=== PATIENT | male | born 1935 | race Caucasian/White ===

== ENCOUNTER 2024-01-17 05:49 | Outpatient (REF) | payer MEDICARE, SELFPAY ==
[2024-01-17 05:52] LABS: MANUAL DIFF FLAG NO
[2024-01-17 05:56] LABS: Basophils Percent Auto 0.6 % (0-2); Eosinophils Absolute Auto 0.1 X10*3/uL (0.0-0.4); Eosinophils Percent Auto 1.4 % (0-4); Hematocrit 31.9 % (42.0-52.0); Hemoglobin 10.2 g/dl (14.0-18.0); Imm Gran Abs Auto 0.01 X10*3/uL (0.00-0.03); Imm Gran Pct Auto 0.2 % (0.0-0.4); Lymphocytes Absolute Auto 2.1 X10*3/uL (1.2-4.9); Lymphocytes Percent Auto 32.4 % (20-40); Mean Corpuscular Hemoglobin 28.7 pg (27.0-33.0); Mean Corpuscular Volume 89.9 fL (80.0-98.0); Mean Platelet Volume 9.4 fL (9.4-12.4); Monocytes Absolute Auto 0.5 X10*3/uL (0.1-1.2); Monocytes Percent Auto 7.1 % (2-11); Neutrophils Absolute Auto 3.7 x10*3/uL (2.0-8.3); Neutrophils Percent Auto 58.3 % (45-73); Platelet Count 207 X10*3/uL (160-400); Red Blood Count 3.55 X10*6/uL (4.60-5.80); Red Cell Distribution Width 14.6 % (11.0-16.0); White Blood Count 6.3 X10*3/uL (4.8-10.8)
[2024-01-17 06:13] LABS: Alanine Aminotransferase 5 U/L (0-40); Albumin Level 3.2 g/dL (3.5-5.0); Alkaline Phosphatase 73 U/L (39-117); Anion Gap 12 (12-20); Aspartate Amino Transferase 8 U/L (5-37); Bilirubin Total 0.3 mg/dL (0.0-1.0); Blood Urea Nitrogen 12 mg/dL (9-16); Calcium 9.1 mg/dL (8.4-10.2); Carbon Dioxide 29 mmol/L (22-29); Chloride 106 mmol/L (96-108); Estimated Glomerular Filt Rate > 60; Glucose Random 100 mg/dL (60-115); Potassium 3.7 mmol/L (3.3-5.1); Sodium 143 mmol/L (135-145); Total Protein 5.6 g/dL (6.5-8.0)
== END 2024-01-17 05:50 | disposition home or self-care (01) ==
LOC: HO.MMNH1L 05:49
PROVIDERS: Visit Provider Hospitalist
DX: I50.30 Unspecified diastolic (congestive) heart failure (principal)
CPT/HCPCS: 36415; 80053; 85025

== ENCOUNTER 2024-05-25 05:56 | Outpatient (REF) | payer MEDICARE, SELFPAY ==
[2024-05-25 06:00] LABS: MANUAL DIFF FLAG NO
[2024-05-25 06:07] LABS: Basophils Percent Auto 0.3 % (0-2); Eosinophils Absolute Auto 0.1 X10*3/uL (0.0-0.4); Eosinophils Percent Auto 1.6 % (0-4); Hematocrit 31.4 % (42.0-52.0); Hemoglobin 10.2 g/dl (14.0-18.0); Imm Gran Abs Auto 0.02 X10*3/uL (0.00-0.03); Imm Gran Pct Auto 0.3 % (0.0-0.4); Lymphocytes Absolute Auto 1.9 X10*3/uL (1.2-4.9); Lymphocytes Percent Auto 30.5 % (20-40); Mean Corpuscular HGB Conc 32.5 g/dl (31.0-36.0); Mean Corpuscular Hemoglobin 26.5 pg (27.0-33.0); Mean Corpuscular Volume 81.6 fL (80.0-98.0); Mean Platelet Volume 9.4 fL (9.4-12.4); Monocytes Absolute Auto 0.7 X10*3/uL (0.1-1.2); Monocytes Percent Auto 11.7 % (2-11); Neutrophils Absolute Auto 3.5 x10*3/uL (2.0-8.3); Neutrophils Percent Auto 55.6 % (45-73); Platelet Count 290 X10*3/uL (160-400); Red Blood Count 3.85 X10*6/uL (4.60-5.80); Red Cell Distribution Width 15.8 % (11.0-16.0); White Blood Count 6.3 X10*3/uL (4.8-10.8)
[2024-05-25 06:30] LABS: B Type Natriuretic Peptide 53 pg/mL (<100)
[2024-05-25 06:33] LABS: Alanine Aminotransferase 12 U/L (0-40); Albumin Level 2.8 g/dL (3.5-5.0); Alkaline Phosphatase 70 U/L (39-117); Anion Gap 9 (12-20); Aspartate Amino Transferase 17 U/L (5-37); Bilirubin Total 0.3 mg/dL (0.0-1.0); Blood Urea Nitrogen 22 mg/dL (9-16); Calcium 8.4 mg/dL (8.4-10.2); Carbon Dioxide 24 mmol/L (22-29); Chloride 107 mmol/L (96-108); Estimated Glomerular Filt Rate > 60; Glucose Fasting 113 mg/dL (60-99); Iron 34 mcg/dL (45-160); Percent Iron Saturation 23 % (15-50); Sodium 136 mmol/L (135-145); Total Iron Binding Capacity 146 mcg/dL (228-428); Total Protein 5.1 g/dL (6.5-8.0); Unsaturated Iron Binding 112 ug/dL
[2024-05-25 06:48] LABS: Ferritin 216 ng/mL (20-250)
[2024-05-25 07:01] LABS: Estimated Average Glucose 126 mg/dL
[2024-05-25 07:04] LABS: Folate 11.6 ng/mL (> or = 4.0); Vitamin B12 1523 pg/mL (200-900)
[2024-05-25 11:48] LABS: OBS Int Ctl Valid YES; OBS1 POSITIVE (NEGATIVE)
[2024-05-28 19:39] LABS: TS Negative Control Passed; TS Panel A 0; TS Panel B 0; TS Positive Control Passed; TSpotTB Negative (Negative)
== END 2024-05-25 05:57 | disposition home or self-care (01) ==
LOC: HO.HSH2W 05:56
PROVIDERS: Visit Provider Internal Medicine
DX: D64.9 Anemia, unspecified (principal); I50.9 Heart failure, unspecified; N18.9 Chronic kidney disease, unspecified; Z13.1 Encounter for screening for diabetes mellitus
CPT/HCPCS: 36415; 80053; 81003; 82272; 82607; 82728; 82746; 83036; 83540; 83880; 84443; 85025; 86481

== ENCOUNTER 2024-05-25 13:25 | Outpatient (REF) | payer MEDICARE, SELFPAY ==
[2024-05-25 16:32] LABS: Appearance Urine Cloudy; Color Urine Yellow; Glucose Urine UA Negative (Negative); Leukocyte Esterase Urine Negative (Negative); Nitrite Urine Negative (Negative); PH 5.5 (5.0-9.0); Urine Blood Negative (Negative); Urine Ketones Negative (Negative); Urine Protein Negative (Neg-Trace)
--- OUTSIDE RECORDS SUMMARY | 2024-05-25 16:44 | XMS_ITS ---
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) ACTIVE 07/03/2023 RETENTION OF URINE, UNSPECIFIED (R33.9 - ICD-10-CM) AC TIVE 07/16/2023 URINARY TRACT INFECTION, SIT E NOT SPECIFIED (N39.0 - ICD-10-CM) ACTIVE 07/16/2023 ACUTE KIDNEY FAILURE, UNSPECIFIED (N17.9 - ICD-10-CM) ACTIVE 07/16/2023 BENIGN PROSTATIC HYPERPLASIA WITH LOWER URINARY TRACT SYMPTOMS (N40.1 - ICD-10-CM) ACTIVE 07/16/2023 UNSPECIFIED DIASTOLIC (CONGE STIVE) HEART FAILURE (I50.30 - ICD-10-CM) ACTIVE 07/16/2023 UNSPECIFIED OSTEOARTHRITIS, UNSPECIFIED SITE (M19.90 - ICD-10-CM) ACTIVE 07/16/2023 OTHER OBSTRUCTIVE AND REFLUX UROPATHY (N13.8 - ICD-10- CM) ACTIVE 07/16/2023 OTHER SPECIFIED DISORDERS OF PENIS (N48.89 - ICD-10-CM ) ACTIVE 07/16/2023 DYSPHAGIA, ORAL PHASE (R13.11 - ICD-10-CM) ACTIVE 07/16/2023 DIFFICULTY IN WALKING, NOT E LSEWHERE CLASSIFIED (R26.2 - ICD-10-CM) ACTIVE 07/16/2023 DEPRESSION, UNSPECIFIED (F32.A - ICD-10-CM) ACTIVE 07/04/2023 BENIGN PROSTATIC HYPERPLASIA WITHOUT LOWER URINARY TRACT SYMPTOMS (N40.0 - ICD-10-CM) ACTIVE 07/03/2023 UNSTEADINESS ON FEET (R26.81 - ICD-10-CM) ACTIVE 07/03/2023 NEED FOR ASSISTANCE WITH PERSONAL CARE (Z74.1 - ICD-10 -CM) ACTIVE 07/03/2023 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 - ICD-10-CM) ACTIVE 07/03/2023 WEAKNESS (R53.1 - ICD-10-CM) ACTIVE 07/03/2023 DELIRIUM DUE TO KNOWN PHYSIO LOGICAL CONDITION (F05 - ICD-10-CM) ACTIVE 07/03/2023 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) ACTIVE 07/03/2023 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) ACTIVE 07/03/2023 ESSENTIAL (PRIMARY) HYPERTENSION (I10 - ICD-10-CM) ACT GUILLERMO 07/03/2023 HYPERLIPIDEMIA, UNSPECIFIED (E78.5 - ICD-10-CM) ACTIVE 07/03/2023 MUSCLE WEAKNESS (GENERALIZED) (M62.81 - ICD-10-CM) ACT GUILLERMO 07/03/2023 BRADYCARDIA, UNSPECIFIED (R00.1 - ICD-10-CM) ACTIVE 07/03/2023 GASTROINTESTINAL HEMORRHAGE, UNSPECIFIED (K92.2 - ICD-10-CM) ACTIVE 07/03/2023 HYPOMAGNESEMIA (E83.42 - ICD-10-CM) ACTIVE 07/02 IRON DEFICIENCY ANEMIA, 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 - Private home/apt. with no home health services [facility] 07/16/2023 04:54 pm EDT - 08/16/2023 02:32 pm EDT Immunizations Vaccine Date Influenza 01/31/2023 12:00 am EDT Pneumococcal Conjugate Vaccine (PCV13) 0 08/15/2018 12:00 am EDT SARS-COV-2 (COVID-19) 08/16/2021 12:00 a m EDT SARS-COV-2 (COVID-19) 01/24/2021 12:00 a m EDT SARS-COV-2 (COVID-19) 06/23/2020 12:00 a m EST SARS-COV-2 (COVID-19) 06/23/2020 12:00 a m EST SARS-COV-2 (COVID-19) 06/02/2020 12:00 a m EST SARS-COV-2 (COVID-19) 06/02/2020 12:00 a m EST SARS-COV-2 (COVID-19 BOOSTER) 01/14/2022 12:00 am EDT SARS-COV-2 (COVID-19 BOOSTER) 08/16/2021 12:00 am EDT SARS-COV-2 (COVID-19 BOOSTER) 01/24/2021 12:00 am EDT Social History
--- OUTSIDE RECORDS SUMMARY | 2024-05-25 16:44 | XMS_ITS ---
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.0 - ICD-10-CM) ACTIVE 09/12/2023 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 - ICD-10-CM) ACTIVE 09/12/2023 GASTRO-ESOPHAGEAL REFLUX DIS EASE WITHOUT ESOPHAGITIS (K21.9 - ICD-10-CM) ACTIVE 09/12/2023 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) ACTIVE 09/12/2023 UNILATERAL PRIMARY OSTEOARTH RITIS, LEFT HIP (M16.12 - ICD-10-CM) ACTIVE 09/12/2023 OTHER LACK OF COORDINATION (R27.8 - ICD-10-CM) ACTIVE 09/14/2023 ESSENTIAL (PRIMARY) HYPERTENSION (I10 - ICD-10-CM) ACT GUILLERMO 09/12/2023 HYPERLIPIDEMIA, UNSPECIFIED (E78.5 - ICD-10-CM) ACTIVE 09/12/2023 PERSONAL HISTORY OF COVID-19 (Z86.16 - ICD-10-CM) ACTI VE 09/12/2023 PERSONAL HISTORY OF OTHER IN FECTIOUS AND PARASITIC DISEASES (Z86.19 - ICD-10-CM) ACTIVE 09/12/2023 Encounters Encounter Performer Performer Role Encounter Diagnoses Location Date Discharge - Discharged / Transferred to [facility] - Snf Facility [facility] 4 05:01 pm EDT - 4 09:15 am EDT Immunizations Vaccine Date TB 1 Step Mantoux (PPD) 09/14/2023 12:00 am EDT (Pneumococcal) PCV20- Conjugate 20-dedra t Vaccine 05/02/2023 12:00 am EST Social History
== END 2024-05-25 13:26 | disposition home or self-care (01) ==
LOC: HO.HSH2W 13:25
PROVIDERS: Visit Provider Internal Medicine
DX: Z13.89 Encounter for screening for other disorder (principal)
CPT/HCPCS: 81003

== ENCOUNTER 2024-05-29 15:01 | Outpatient (REF) | payer MEDICARE, SELFPAY ==
[2024-05-29 16:10] LABS: CDiff Gene PCR POSITIVE (Negative)
[2024-05-29 17:15] LABS: CDIFF Internal ctrl Dots and bkg OK (V); CDiff Toxin Negative (Negative)
== END 2024-05-29 15:02 | disposition home or self-care (01) ==
LOC: HO.HSH2W 15:01
PROVIDERS: Visit Provider Internal Medicine
DX: R19.7 Diarrhea, unspecified (principal)
CPT/HCPCS: 87324; 87493

== ENCOUNTER 2024-06-04 07:40 | Outpatient (REF) | payer MEDICARE, SELFPAY ==
[2024-06-04 12:43] LABS: OBS Int Ctl Valid YES; OBS1 NEGATIVE (NEGATIVE)
== END 2024-06-04 07:41 | disposition home or self-care (01) ==
LOC: HO.HVNA 07:40
PROVIDERS: Visit Provider Internal Medicine
DX: D64.9 Anemia, unspecified (principal)
CPT/HCPCS: 82272

== ENCOUNTER 2024-06-05 06:05 | Outpatient (REF) | payer MEDICARE, SELFPAY ==
[2024-06-05 06:08] LABS: MANUAL DIFF FLAG NO
[2024-06-05 06:26] LABS: Basophils Absolute Auto 0.1 X10*3/uL (0.0-0.2); Basophils Percent Auto 0.6 % (0-2); Eosinophils Absolute Auto 0.1 X10*3/uL (0.0-0.4); Eosinophils Percent Auto 1.5 % (0-4); Hematocrit 29.2 % (42.0-52.0); Hemoglobin 9.3 g/dl (14.0-18.0); Imm Gran Abs Auto 0.02 X10*3/uL (0.00-0.03); Imm Gran Pct Auto 0.2 % (0.0-0.4); Lymphocytes Absolute Auto 1.9 X10*3/uL (1.2-4.9); Lymphocytes Percent Auto 23.1 % (20-40); Mean Corpuscular HGB Conc 31.8 g/dl (31.0-36.0); Mean Corpuscular Hemoglobin 26.6 pg (27.0-33.0); Mean Corpuscular Volume 83.4 fL (80.0-98.0); Mean Platelet Volume 9.2 fL (9.4-12.4); Monocytes Absolute Auto 0.6 X10*3/uL (0.1-1.2); Monocytes Percent Auto 7.1 % (2-11); Neutrophils Absolute Auto 5.5 x10*3/uL (2.0-8.3); Neutrophils Percent Auto 67.5 % (45-73); Platelet Count 221 X10*3/uL (160-400); Red Cell Distribution Width 17.1 % (11.0-16.0); White Blood Count 8.2 X10*3/uL (4.8-10.8)
== END 2024-06-05 06:06 | disposition home or self-care (01) ==
LOC: HO.HSH2W 06:05
PROVIDERS: Visit Provider Internal Medicine
DX: D64.9 Anemia, unspecified (principal)
CPT/HCPCS: 36415; 85025

== ENCOUNTER 2024-06-12 16:51 | Outpatient (REF) | payer MEDICARE, SELFPAY ==
[2024-06-12 17:04] LABS: OBS Int Ctl Valid YES; OBS1 NEGATIVE (NEGATIVE)
== END 2024-06-12 16:52 | disposition home or self-care (01) ==
LOC: HO.HSH2W 16:51
PROVIDERS: Visit Provider Internal Medicine
DX: D64.9 Anemia, unspecified (principal)
CPT/HCPCS: 82272

== ENCOUNTER 2024-06-13 05:40 | Outpatient (REF) | payer MEDICARE, SELFPAY ==
[2024-06-13 06:20] LABS: B Type Natriuretic Peptide 80 pg/mL (<100)
== END 2024-06-13 05:41 | disposition home or self-care (01) ==
LOC: HO.HSH2W 05:40
PROVIDERS: Visit Provider Internal Medicine
DX: I10 Essential (primary) hypertension (principal); I50.9 Heart failure, unspecified
CPT/HCPCS: 36415; 83880

== ENCOUNTER 2024-07-11 07:09 | Outpatient (REF) | payer MEDICARE, SELFPAY ==
[2024-07-11 07:14] LABS: MANUAL DIFF FLAG NO
[2024-07-11 07:23] LABS: Basophils Percent Auto 0.6 % (0-2); Eosinophils Absolute Auto 0.2 X10*3/uL (0.0-0.4); Eosinophils Percent Auto 3.1 % (0-4); Hematocrit 30.5 % (42.0-52.0); Hemoglobin 9.7 g/dl (14.0-18.0); Imm Gran Abs Auto 0.02 X10*3/uL (0.00-0.03); Imm Gran Pct Auto 0.3 % (0.0-0.4); Mean Corpuscular HGB Conc 31.8 g/dl (31.0-36.0); Mean Platelet Volume 9.6 fL (9.4-12.4); Monocytes Absolute Auto 0.6 X10*3/uL (0.1-1.2); Monocytes Percent Auto 7.9 % (2-11); Neutrophils Absolute Auto 4.3 x10*3/uL (2.0-8.3); Neutrophils Percent Auto 60.1 % (45-73); Platelet Count 204 X10*3/uL (160-400); Red Blood Count 3.59 X10*6/uL (4.60-5.80); White Blood Count 7.1 X10*3/uL (4.8-10.8)
[2024-07-11 07:37] LABS: Anion Gap 10 (12-20); Blood Urea Nitrogen 23 mg/dL (9-16); Calcium 8.7 mg/dL (8.4-10.2); Carbon Dioxide 28 mmol/L (22-29); Chloride 106 mmol/L (96-108); Estimated Glomerular Filt Rate > 60; Glucose Random 98 mg/dL (60-115); Potassium 3.8 mmol/L (3.3-5.1); Sodium 140 mmol/L (135-145)
== END 2024-07-11 07:10 | disposition home or self-care (01) ==
LOC: HO.HSH 07:09
PROVIDERS: Visit Provider Internal Medicine
DX: D64.9 Anemia, unspecified (principal); N18.9 Chronic kidney disease, unspecified; I50.9 Heart failure, unspecified
CPT/HCPCS: 36415; 80048; 85025

== ENCOUNTER 2024-08-08 07:26 | Outpatient (REF) | payer MEDICARE, SELFPAY ==
[2024-08-08 07:30] LABS: MANUAL DIFF FLAG NO
[2024-08-08 07:43] LABS: Basophils Absolute Auto 0.1 X10*3/uL (0.0-0.2); Basophils Percent Auto 0.6 % (0-2); Eosinophils Absolute Auto 0.2 X10*3/uL (0.0-0.4); Eosinophils Percent Auto 1.9 % (0-4); Hemoglobin 10.5 g/dl (14.0-18.0); Imm Gran Abs Auto 0.03 X10*3/uL (0.00-0.03); Imm Gran Pct Auto 0.3 % (0.0-0.4); Lymphocytes Absolute Auto 2.2 X10*3/uL (1.2-4.9); Lymphocytes Percent Auto 24.5 % (20-40); Mean Corpuscular HGB Conc 32.8 g/dl (31.0-36.0); Mean Corpuscular Hemoglobin 27.3 pg (27.0-33.0); Mean Corpuscular Volume 83.1 fL (80.0-98.0); Mean Platelet Volume 10.1 fL (9.4-12.4); Monocytes Absolute Auto 0.6 X10*3/uL (0.1-1.2); Monocytes Percent Auto 6.5 % (2-11); Neutrophils Absolute Auto 5.8 x10*3/uL (2.0-8.3); Neutrophils Percent Auto 66.2 % (45-73); Platelet Count 219 X10*3/uL (160-400); Red Blood Count 3.85 X10*6/uL (4.60-5.80); Red Cell Distribution Width 16.9 % (11.0-16.0); White Blood Count 8.8 X10*3/uL (4.8-10.8)
[2024-08-08 08:06] LABS: Anion Gap 12 (12-20); Blood Urea Nitrogen 37 mg/dL (9-16); Calcium 8.9 mg/dL (8.4-10.2); Carbon Dioxide 26 mmol/L (22-29); Chloride 105 mmol/L (96-108); Cholesterol 101 mg/dL (<200); Estimated Glomerular Filt Rate > 60; Glucose Random 105 mg/dL (60-115); HDL Cholesterol 32 mg/dL (>40); Iron 31 mcg/dL (45-160); LDL Cholesterol Calculated 53 mg/dL (<100); Percent Iron Saturation 15 % (15-50); Sodium 139 mmol/L (135-145); Total Iron Binding Capacity 202 mcg/dL (228-428); Triglycerides 83 mg/dL (<150); Unsaturated Iron Binding 171 ug/dL
[2024-08-08 08:23] LABS: Ferritin 41 ng/mL (20-250); Vitamin D 25-OH Total 20.4 ng/mL (>30)
[2024-08-08 08:34] LABS: Folate 9.5 ng/mL (> or = 4.0); Vitamin B12 798 pg/mL (200-900)
== END 2024-08-08 07:27 | disposition home or self-care (01) ==
LOC: HO.HSH2W 07:26
PROVIDERS: Visit Provider Internal Medicine
DX: N18.9 Chronic kidney disease, unspecified (principal); D64.9 Anemia, unspecified; I25.10 Atherosclerotic heart disease of native coronary artery without angina pectoris
CPT/HCPCS: 36415; 80048; 80061; 82306; 82607; 82728; 82746; 83540; 85025

== ENCOUNTER 2024-08-21 07:56 | Outpatient (REF) | payer MEDICARE, SELFPAY ==
[2024-08-21 08:00] LABS: MANUAL DIFF FLAG NO
[2024-08-21 08:08] LABS: Basophils Percent Auto 0.6 % (0-2); Eosinophils Absolute Auto 0.2 X10*3/uL (0.0-0.4); Eosinophils Percent Auto 2.3 % (0-4); Hematocrit 31.9 % (42.0-52.0); Hemoglobin 10.4 g/dl (14.0-18.0); Imm Gran Abs Auto 0.01 X10*3/uL (0.00-0.03); Imm Gran Pct Auto 0.1 % (0.0-0.4); Mean Corpuscular HGB Conc 32.6 g/dl (31.0-36.0); Mean Corpuscular Hemoglobin 27.2 pg (27.0-33.0); Mean Corpuscular Volume 83.3 fL (80.0-98.0); Mean Platelet Volume 9.4 fL (9.4-12.4); Monocytes Absolute Auto 0.5 X10*3/uL (0.1-1.2); Monocytes Percent Auto 7.8 % (2-11); Neutrophils Absolute Auto 4.1 x10*3/uL (2.0-8.3); Neutrophils Percent Auto 60.2 % (45-73); Platelet Count 220 X10*3/uL (160-400); Red Blood Count 3.83 X10*6/uL (4.60-5.80); Red Cell Distribution Width 16.6 % (11.0-16.0); White Blood Count 6.9 X10*3/uL (4.8-10.8)
[2024-08-21 08:23] LABS: Anion Gap 12 (12-20); Blood Urea Nitrogen 37 mg/dL (9-16); Carbon Dioxide 26 mmol/L (22-29); Chloride 104 mmol/L (96-108); Estimated Glomerular Filt Rate > 60; Glucose Fasting 104 mg/dL (60-99); Potassium 3.8 mmol/L (3.3-5.1); Sodium 138 mmol/L (135-145)
== END 2024-08-21 07:57 | disposition home or self-care (01) ==
LOC: HO.HSH2W 07:56
PROVIDERS: Visit Provider Internal Medicine
DX: D64.9 Anemia, unspecified (principal); R03.1 Nonspecific low blood-pressure reading; I50.20 Unspecified systolic (congestive) heart failure
CPT/HCPCS: 36415; 80048; 85025

== ENCOUNTER 2025-02-01 07:17 | Outpatient (REF) | payer MEDICARE, SELFPAY ==
[2025-02-01 07:19] LABS: MANUAL DIFF FLAG NO
--- OUTSIDE RECORDS SUMMARY | 2025-02-01 07:20 | XMS_ITS ---
Author Organization [facility] Care Team Providers Care Frame Assembler Name Role Phone Ariadna Miranda Unavailable Unavailable Krissy Pina Unavailable Unavailable Haresh Cunningham Unavailable Unavailable Allergies and adverse reactions No Known Allergies Care Team Name Role Address Phone Organization Dates Haresh Cunningham PCP [address], [address], [facility] (Office): : [facility] 09/12/2023 - 01/17/2024 Ariadna Miranda [address] [place], [address], [place] (Office): : [facility] 09/12/2023 - 01/17/2024 Krissy Pina [address] [facility] [address], [address], [facility] (Office): : [facility] 09/12/2023 - 01/17/2024 Immunizations Immunization Status Vaccine Details Vaccine Code CodeSystem Date Notes TB 1 Step Mantoux (PPD) completed tuberculin skin test; unspecified formulation lotNumber: [id number] expiry: 10/24/2024 Mfg: [employer] pasteur Given 0.1 ml Right Forearm subcutaneously 98 CVX created date: 12/22/2023 administere d date: 09/14/2023 (Pneumococcal) PCV20- Conjugate 20-valent Vaccine completed Pneumococcal conjugate vaccine 20-valent (PCV20), polysaccharide [id number] conjugate, adjuvant, preservative free 216 CVX created date: 09/30/2023 administere d date: 05/02/2023 Mental Status Section Date Assessment Total Score Description 01/17/2024 BIMS 14 cognitively int act CAM 0 No delirium ind icated PHQ-9 10 moderate depres elijah 12/07/2023 BIMS 14 cognitively int act CAM 0 No delirium ind icated PHQ-9 10 moderate depres elijah Insurance Providers Problems Problem # Description Date of onset Resolved Date Code CodeSystem Concern Status 1 OTHER LACK OF COORDINATION 09/14/[address] active 2 AFTERCARE FOLLOWING JOINT REPLACEMENT SURGERY 09/12/[address] active 3 ATHEROSCLEROTIC HEART DISEASE OF [place] CORONARY ARTERY WITHOUT ANGINA PECTORIS 09/12/[id number] active 4 CHRONIC KIDNEY DISEASE, STAGE 3 UNSPECIFIED 09/12/[address] active 5 ESSENTIAL (PRIMARY) HYPERTENSION 09/12/[address] active 6 GASTRO-ESOPHAGEAL REFLUX DISEASE WITHOUT ESOPHAGITIS 09/12/[address] active 7 HYPERLIPIDEMIA, UNSPECIFIED 09/12/[address] active 8 IRON DEFICIENCY ANEMIA SECONDARY TO BLOOD LOSS (CHRONIC) 09/12/[address] active 9 PAROXYSMAL ATRIAL FIBRILLATION 09/12/[address] active 10 PERSONAL HISTORY OF COVID-19 09/12/[address] active 11 PERSONAL HISTORY OF OTHER INFECTIOUS AND PARASITIC DISEASES 09/12/[address] active 12 TYPE 2 DIABETES MELLITUS WITHOUT COMPLICATIONS 09/12/[address] active 13 UNILATERAL PRIMARY OSTEOARTHRITIS, LEFT HIP 09/12/[address] active 14 UNSPECIFIED DIASTOLIC (CONGESTIVE) HEART FAILURE 09/12/[address] active 15 UNSPECIFIED PROTEIN-CALORIE MALNUTRITION 09/12/[address] active Reason for Referral No Reasons for Referral Entered Social History Social History Observation Description Start Date End Date Code Code System Current Smoking Status Tobacco smoking consumption unknown 783629105 SNOMED CT Sex Assigned At Male 1935 74499-4 [facility] Gender Identity Sexual Orientation Vital Signs Code Code System Vitals Name Values and Units Timing Information 93498-1 [facility] Pain Level Value=0.0 01/17/2024 9279-1 [facility] Respiratory Rate Value=16.0 Units=/m in 01/16/2024 8462-4 [facility] Blood Pressure-Diastolic Value=75 Un its=mmHg 01/16/2024 8480-6 [facility] Blood Pressure-Systolic Jmnmd=905 Un its=mmHg 01/16/2024 8310-5 [facility] Body Temperature Value=97.7 Units= F 01/16/2024 8867-4 [facility] Heart rate Value=86.0 Units=/min 43567-9 [facility] O2 % BldC Oximetry Value=98.0 Units= % 01/16/2024 08331-4 [facility] Weight Krnot=495.7 Units=Lbs 10/2023 8302-2 [facility] Height Value=64.0 Units=Inches 09/13/2023
[2025-02-01 07:43] LABS: Hematocrit 31.3 % (42.0-52.0); Hemoglobin 10.0 g/dl (14.0-18.0); Imm Gran Abs Auto 0.03 X10*3/uL (0.00-0.03); Imm Gran Pct Auto 0.4 % (0.0-0.4); Lymphocytes Absolute Auto 2.3 X10*3/uL (1.2-4.9); Mean Corpuscular HGB Conc 31.9 g/dl (31.0-36.0); Mean Corpuscular Hemoglobin 26.2 pg (27.0-33.0); Mean Corpuscular Volume 81.9 fL (80.0-98.0); NRBC Abs Auto 0.000 X10*3/uL (0.0-0.012); NRBC Pct Auto 0.0 /100WBC (0.0-0.2); Platelet Count 269 X10*3/uL (160-400); Red Blood Count 3.82 X10*6/uL (4.60-5.80); White Blood Count 7.6 X10*3/uL (4.8-10.8)
[2025-02-01 08:01] LABS: Anion Gap 9 (12-20); Blood Urea Nitrogen 32 mg/dL (9-16); Calcium 8.7 mg/dL (8.4-10.2); Carbon Dioxide 28 mmol/L (22-29); Chloride 105 mmol/L (96-108); Estimated Glomerular Filt Rate > 60; Potassium 3.9 mmol/L (3.3-5.1); Sodium 138 mmol/L (135-145)
[2025-02-01 09:19] LABS: Vitamin B12 881 pg/mL (200-900)
== END 2025-02-01 07:18 | disposition home or self-care (01) ==
LOC: HO.HSH2W 07:17
PROVIDERS: Visit Provider Internal Medicine
DX: I50.32 Chronic diastolic (congestive) heart failure (principal); D64.9 Anemia, unspecified; R60.9 Edema, unspecified
CPT/HCPCS: 36415; 80048; 82306; 82607; 85025

== ENCOUNTER 2025-03-14 14:54 | Inpatient (IN) | payer MEDICARE, SELFPAY ==
[2025-03-14] VITALS (7 sets, daily range): BP systolic 98–155; BP diastolic 52–87; PULSE 84–129; RESP 14–26; TEMP 36.6–38.1; O2SAT 92–96; BMI 22.0
--- NOTE | ~2025-03-14 | XR_ITS ---
EXAMINATION: XR CHEST CLINICAL INFORMATION: cough, congested, elevated JVP COMPARISON: Previous chest x-ray March 14, 2025 TECHNIQUE: Frontal view of the chest was obtained. FINDINGS: Low lung volumes. New subsegmental atelectasis at the right lung base. No evidence of pulmonary edema. No pleural effusion or pneumothorax. Cardiac and mediastinal contours are stable. Post-CABG changes. Slightly enlarged cardiac silhouette similar to previous exam.. Degenerative changes of the spine. The 3 most superior median sternotomy wires are broken. XR/XR chest 1V IMPRESSION: No evidence of CHF. Low lung volumes and new subsegmental atelectasis at the right lung base. Post-CABG changes. Electronically signed by: Hayde Burrows MD 03/19/2025 04:48 PM EST
--- NOTE | ~2025-03-14 | CT_ITS ---
CLINICAL HISTORY: abd pain Exam: Contrast-enhanced CT abdomen and pelvis with multiplanar reformats. Comparison: None. Findings: CT abdomen: Lung bases are grossly clear. There is pwpbf-gv-oqojpzkx volume pneumoperitoneum, mostly within the upper abdomen (4; 172), as well as a partially loculated or circumscribed collection of the extraluminal gas and air within the left hemipelvis, measuring up to 8.5 x 2.4 cm transverse and AP dimension (measured on 4; 425). There is fairly significant small bowel wall thickening and surrounding stranding involving proximal small bowel loops in this region with additional foci of extraluminal gas (4; 412-492), suggesting nonspecific enteritis with perforation. Sigmoid colon reveal sequela of prior partial resection and anastomosis. Colonic diverticulosis is present, without definitive CT evidence of diverticulitis. No other abnormal bowel wall thickening or distention. Additional extraluminal collections of the gas and fluid are present within right hemipelvis (4; 587 -45), measuring up to 3 cm cross-sectional dimension (4; 565), and extending over a craniocaudad distance of roughly 6 cm (7; 41). Otherwise liver is free of focal lesions and ductal dilatation. Gallbladder reveals cholelithiasis, without CT evidence of cholecystitis. Spleen appears unremarkable. Pancreas and adrenal glands appear unremarkable. Kidneys reveal small right renal cysts which appear grossly simple, kidneys otherwise appear unremarkable. Small amount of free intraperitoneal fluid appears likely reactive. No retroperitoneal masses or adenopathy. Abdominal aorta is normal caliber with moderate calcific atherosclerosis. CT pelvis: A Garg catheter is present within urinary bladder. No gross pelvic masses or adenopathy. Osseous structures reveal no destructive osseous lesions. Impression: 1. Pneumoperitoneum with scattered partially loculated collections of the gas and fluid within the peritoneum. There is fairly significant small bowel wall thickening and stranding in this region, findings suggest bowel perforation likely related to significant enteritis. This document has been electronically signed by: Duncan Loredo MD on 03/14/2025 19:15:13
--- NOTE | ~2025-03-14 | CT_ITS ---
EXAMINATION: CT ABDOMEN PELVIS WITHOUT IV CONTRAST HISTORY: sepsis; recent surgery COMPARISON: Comparison is made with the prior examination dated 03/14/2025. TECHNIQUE: CT scan of the abdomen and pelvis was performed without contrast using standard departmental protocol. Coronal and sagittal reformatted images were generated and reviewed. Oral contrast material was not administered at the request of the referring physician. This CT exam was performed with one or more of the following dose reduction techniques: automated exposure control, adjustment of the mA and/or kV according to patient size, use of iterative reconstruction technique. DLP: 673 mGy-cm FINDINGS: LOWER CHEST: There is airspace opacity at both lung bases, consistent with atelectasis versus pneumonia. There is a small right pleural effusion. CARDIOVASCULATURE: The heart is normal in size. There is no pericardial effusion. LIVER: The liver is normal in size and contour. The liver has an unremarkable unenhanced appearance. GALLBLADDER / BILE DUCTS: There is cholelithiasis. There is no intra or extrahepatic biliary ductal dilatation. SPLEEN: The spleen is normal in size and has an unremarkable unenhanced appearance. PANCREAS: The pancreas has an unremarkable unenhanced appearance. ADRENAL GLANDS: Unremarkable. KIDNEYS/RETROPERITONEUM: No renal calculi are identified. There is no hydronephrosis. There are right renal cysts measuring up to 3.0 cm in size. LYMPH NODES: No retroperitoneal lymphadenopathy is identified in the abdomen or pelvis. VASCULATURE: The abdominal aorta demonstrates atherosclerotic calcification, but is normal in caliber. MESENTERY/PERITONEUM: No free fluid. No masses. There is no free intraperitoneal gas. STOMACH: The stomach is collapsed, limiting evaluation. SMALL BOWEL: The small bowel is normal in caliber. 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 There is diverticulosis of the descending colon, without evidence of diverticulitis. There is marked rectal wall thickening. APPENDIX: Normal. URINARY BLADDER/PELVIC ORGANS: There is gas in the urinary bladder which may be due to prior catheter placement. A ALVIN drain is noted in the pelvis. The prostate is obscured by streak artifact from a left total hip arthroplasty. BONES / SOFT TISSUES: There is degenerative disc disease of the spine. Again seen are compression fractures of T12 and L1. CT/CT abdomen pelvis wo IV con IMPRESSION: 1. 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 2. Status post descending colostomy. 3. Cholelithiasis. Electronically signed by: Asim Perez MD 03/22/2025 11:[address] [facility]
--- NOTE | ~2025-03-14 | XR_ITS ---
EXAMINATION: XR ABDOMEN KUB CLINICAL INDICATION: abdominal pain/ lactic acidosis/ postop manoj . COMPARISON: None. Correlation made with CT abdomen pelvis 03/14/2025. TECHNIQUE: AP view of the abdomen, supine. FINDINGS: Mildly dilated loops of small bowel in the superior and central abdomen, suggesting possible small bowel obstruction versus ileus. There is a ALVIN drain within the region of the pelvis. There are heavy vascular calcifications present. There are surgical nick in the midline. No organomegaly or large abdominal mass. Lung bases not included in the [id number]-[id number]. There is a total left hip arthroplasty in place. Mild degenerative changes of the right hip joint. Significant degenerative changes of the imaged spine. No acute bone abnormality. XR/XR KUB IMPRESSION: 1. Mildly dilated loops of small bowel in the central and upper abdomen, most likely representing ileus in the setting of recent surgery. A low-grade small bowel obstruction cannot be excluded. 2. ALVIN drain within the pelvis. Electronically signed by: Serg Conde MD 03/22/2025 09:32 AM [facility]
--- NOTE | ~2025-03-14 | XR_ITS ---
CLINICAL HISTORY: hypoxia --- Additional Notes or Special Instructions: patient not ready @17[facility] when ready 1 view chest x-ray Comparison: CR/SR - XR CHEST 1 VIEW - 03/19/25 16:17 EST Findings: Patient's chin overlying the lung apices. Heart size within normal limits. 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 Low lung volumes with interval some worsening of right lower lung opacities. No significant pleural effusion or significant pneumothorax. No acute fracture. Surgical clips in left upper quadrant. IMPRESSION: 1. Mild worsening of right lower lung opacities may represent pneumonia or atelectasis. 2. Otherwise stable findings as described. This document has been electronically signed by: Barbara Starr MD on 03/21/2025 18:42:00
--- NOTE | ~2025-03-14 | XR_ITS ---
EXAMINATION: XR CHEST CLINICAL INFORMATION: sob COMPARISON: None available. TECHNIQUE: Frontal view of the chest was obtained. FINDINGS: The lungs are hypoexpanded with bibasilar atelectasis and/or scarring. Heart size is normal. Pulmonary vascularity is normal. There are median sternotomy sutures and mediastinal nick from previous CABG. No gross bony abnormality seen. XR/XR chest 1V IMPRESSION: Bibasilar atelectasis/scarring. Electronically signed by: Marcos De MD 03/15/2025 07:15 AM YOUNG
--- NOTE | 2025-03-14 15:11 | ECG_ITS ---
Test Reason : TACHY Blood Pressure : */* mmHG Vent. Rate : 113 BPM Atrial Rate : * BPM P-R Int : * ms QRS Dur : 110 ms QT Int : 346 ms P-R-T Axes : * 83 32 degrees QTcB Int : 474 ms Atrial fibrillation with rapid ventricular response Incomplete right bundle branch block ST & T wave abnormality, consider anterior ischemia Abnormal ECG When compared with ECG of 29-Mar-2005 15:08, Atrial fibrillation has replaced Sinus rhythm Vent. rate has increased by 57 bpm QRS duration has increased Non-specific change in ST segment in Anterior leads T wave inversion now evident in Anterior leads Referred By: Generic ED Physician Electronically Signed By: ARMANDO MURO MD
[2025-03-14 16:02] LABS: MANUAL DIFF FLAG NO
[2025-03-14 16:05] LABS: Hematocrit 38.6 % (42.0-52.0); Hemoglobin 12.2 g/dl (14.0-18.0); Imm Gran Abs Auto 0.15 X10*3/uL (0.00-0.03); Imm Gran Pct Auto 0.7 % (0.0-0.4); Lymphocytes Absolute Auto 2.7 X10*3/uL (1.2-4.9); Mean Corpuscular HGB Conc 31.6 g/dl (31.0-36.0); Mean Corpuscular Hemoglobin 25.3 pg (27.0-33.0); Mean Corpuscular Volume 80.1 fL (80.0-98.0); NRBC Abs Auto 0.000 X10*3/uL (0.0-0.012); NRBC Pct Auto 0.0 /100WBC (0.0-0.2); Platelet Count 346 X10*3/uL (160-400); Red Blood Count 4.82 X10*6/uL (4.60-5.80); White Blood Count 21.2 X10*3/uL (4.8-10.8)
[2025-03-14 16:20] LABS: Alanine Aminotransferase 16 U/L (0-40); Albumin Level 3.7 g/dL (3.5-5.0); Alkaline Phosphatase 69 U/L (39-117); Anion Gap 17 (12-20); Aspartate Amino Transferase 17 U/L (5-37); Blood Urea Nitrogen 47 mg/dL (9-16); Calcium 9.8 mg/dL (8.4-10.2); Carbon Dioxide 24 mmol/L (22-29); Chloride 101 mmol/L (96-108); Creatinine Clr Calc Pharmacy 33.0; Estimated Glomerular Filt Rate 48; Magnesium 1.9 mg/dL (1.6-2.6); Potassium 5.1 mmol/L (3.3-5.1); Sodium 137 mmol/L (135-145); Total Protein 6.8 g/dL (6.5-8.0)
[2025-03-14 16:25] LABS: INTERNATIONAL NORM RATIO 2.6 (0.9-1.1); Prothrombin Time 30.6 SEC (11.2-13.5)
[2025-03-14 16:26] LABS: Troponin-I High Sensitivity 8.3 ng/L (<3.5-35.0)
--- NOTE | 2025-03-14 16:36 | ED.FEVER ---
HPI - Fever General Chief Complaint: Fever Stated Complaint: COMING FROM [place], [facility] Time Seen by Provider: 03/14/25 16:13 History of Present Illness HPI Narrative: Patient is an 89-year-old male presented today with having abdominal pain question chest pain 4 hours. On arrival patient has no symptoms. Was noted to have increased heart rate. Had a rectal temperature 100.5 degrees. Baseline patient is confused. We do not have significant old record on patient. Sent in for further evaluation. Related Data Allergies Allergy/AdvReac Type Severity Reaction Status Date / Time No Known Allergies Allergy Verified 03/14/25 15:10 Review of Systems Review of Systems: Patient unable to provide detailed review of systems but it seems like patient had some coughing had some nonspecific abdominal pain which has gone away. Yes Unobtainable due to mental status PMFSH Past Medical History Attestation statement: The following information was validated with the patient. Medical History (Updated 03/14/25 @ 22:58 by Heather Fatima MD) BPH (benign prostatic hyperplasia) HLD (hyperlipidemia) CHF (congestive heart failure) HTN (hypertension) A-fib Dementia Social History Social History Smoked in Last 30 Days: No Use of substances other than those prescribed or required for medical reasons: No Advance Directives: No Advance Directives Information Provided: No Do you have a plan to hurt others: No Plan Physical Exam Exam: Exam: Appearance: Alert. Oriented X1. No acute distress. Eyes: Pupils equal, round and reactive to light. ENT: Pharynx normal. Neck: Normal inspection. Neck supple. No lymph nodes noted. No crepitus CVS: Normal heart rate and rhythm. Pulses normal. Normal S1 and S2 Respiratory: No respiratory distress. Breath sounds normal. No Wheezing. No rales Abdomen: Soft and nontender. No rigidity. No distention. good BS x4 Skin: Skin warm and dry. Normal skin color. Normal skin turgor. Extremities: No lower extremity edema. Neurovascular intact to all extremities. No Lacerations. No Rash Neuro: Oriented X 1. No motor deficit. No sensory deficit. Moving all extermities. No slurred speech Vital Signs: Vital Signs: Last Vital Signs Temp 98.3 F 03/14/25 22:00 Pulse 96 03/14/25 22:00 Resp 16 03/14/25 22:00 BP 111/52 L 03/14/25 22:00 Pulse Ox 92 03/14/25 22:00 O2 Del Method Room Air 03/14/25 22:00 BMI result Body Mass Index 22.0 Medications Administered Discontinued Medications Generic Name Dose Route Start Last Admin Trade Name Gamaliel PRN Reason Stop Dose Admin Acetaminophen 1,000 mg in 100 mls @ 400 mls/hr 03/14/25 15:40 03/14/25 16:39 Ofirmev IV 03/14/25 15:54 Infused ONCE ONE Infusion Lactated Ringer's 1,908 mls @ 1,908 mls/hr 03/14/25 15:40 03/14/25 18:00 Lr 30 ml/kg infuse over 1 hr (1908 ml) 03/14/25 16:39 Infused IV Infusion .Q1H ONE Ceftriaxone Sodium 2 gm/ 50 mls @ 100 mls/hr 03/14/25 15:40 03/14/25 16:39 Sodium Chloride IV 03/14/25 16:09 Infused ONCE ONE Infusion Metronidazole 500 mg in 100 mls @ 100 mls/hr 03/14/25 19:29 03/14/25 20:55 Flagyl IV 03/14/25 20:28 Infused ONCE ONE Infusion Iohexol 100 ml 03/14/25 18:47 03/14/25 18:47 Iohexol 350 Mg/Ml 100 Ml Infus..Btl IV 03/14/25 18:48 85 ml ONCE ONE Administration Medical Decision Making Medical Decision Making MDM Narrative: 89 years old presented today with having nonspecific abdominal pain from [facility]. Had fever up to 100.1 rectally. Had a mild cough. Has a history of atrial fibrillation. My interpretation of patient's EKG shows an atrial fibrillation pattern heart rate is 120. Patient's white count came back at 20. Lactate was 4.1. BUN creatinine elevated consistent with having an infection. 30 cc/kilos IV fluids started. X-ray and urine being sent. Discussed with radiology. Reviewed patient's CT scan abdomen reading which showed a perforated bowel. The finding was discussed with surgery. They are coming to see patient. Discussed with family. Family is now at bedside. Patient has significant past medical history. Decision is being made to have patient get reverse and have surgery versus more comfort measure Surgery at bedside will admit patient. Differential Diagnosis Differential Diagnoses: The differential diagnosis associated with the presentation includes perforated bowel, pneumonia, COVID flu RSV Admission/Observation Consideration of admission/observation: Escalation of care including admission/observation considered Consult Healthcare Provider Management of the patient was discussed with: Hospitalist ( for med consultation) and Health Services Rn ( surgery for bowel perforation) Lab Data MDM Lab Attestation statement: I reviewed the patient's lab results. 03/14/25 15:50 03/14/25 15:50 Labs: Lab Results 03/14/25 03/14/25 03/14/25 Range/Units 15:50 15:55 16:50 WBC 21.2 H (4.8-10.8) X10*3/uL RBC 4.82 D (4.60-5.80) X10*6/uL Hgb 12.2 L D (14.0-18.0) g/dl Hct 38.6 L D (42.0-52.0) % MCV 80.1 (80.0-98.0) fL MCH 25.3 L (27.0-33.0) pg MCHC 31.6 (31.0-36.0) g/dl RDW 16.3 H (11.0-16.0) % Plt Count 346 D (160-400) X10*3/uL MPV 9.9 (9.4-12.4) fL Immature Gran % (Auto) 0.7 H (0.0-0.4) % Neut % (Auto) 83.1 H (45-73) % Lymph % (Auto) 12.5 L (20-40) % Bent % (Auto) 3.5 (2-11) % Eos % (Auto) 0.0 (0-4) % Baso % (Auto) 0.2 (0-2) % Lymph # (Auto) 2.7 (1.2-4.9) X10*3/uL Bent # (Auto) 0.8 (0.1-1.2) X10*3/uL Eos # (Auto) 0.0 (0.0-0.4) X10*3/uL Baso # (Auto) 0.0 (0.0-0.2) X10*3/uL Abs Immat Gran (auto) 0.15 H (0.00-0.03) X10*3/uL Absolute Neuts (auto) 17.6 H (2.0-8.3) x10*3/uL Absolute Nucleated RBC 0.000 (0.0-0.012) X10*3/uL Nucleated RBC % (auto) 0.0 (0.0-0.2) /100WBC Hold Purple Top SEE NOTE PT 30.6 H (11.2-13.5) SEC INR 2.6 H (0.9-1.1) Sodium 137 (135-145) mmol/L Potassium 5.1 D (3.3-5.1) mmol/L Chloride 101 (96-108) mmol/L Carbon Dioxide 24 (22-29) mmol/L Anion Gap 17 (12-20) BUN 47 H (9-16) mg/dL Creatinine 1.39 (0.5-1.4) mg/dL Estim Creat Clear Calc 33.0 Estimated GFR 48 Random Glucose 203 H (60-115) mg/dL Lactic Acid 4.1 H* (0.5-2.0) mmol/L Lactic Acid F/U @ 2Hr (0.5-2.0) mmol/L Lactic Acid F/U @ 4Hr (0.5-2.0) mmol/L Calcium 9.8 D (8.4-10.2) mg/dL Magnesium 1.9 (1.6-2.6) mg/dL Total Bilirubin 0.7 (0.0-1.0) mg/dL AST 17 (5-37) U/L ALT 16 (0-40) U/L Alkaline Phosphatase 69 (39-117) U/L Troponin I High Sens 8.3 (<3.5-35.0) ng/L Total Protein 6.8 (6.5-8.0) g/dL Albumin 3.7 (3.5-5.0) g/dL Urine Color Urine Appearance Urine pH (5.0-9.0) Ur Specific [place] (1.005-1.025) Urine Protein (Neg-Trace) mg/dL Urine Glucose (UA) (Negative) mg/dL Urine Ketones (Negative) mg/dL Urine Blood (Negative) Urine Nitrite (Negative) Ur Leukocyte Esterase (Negative) Urine RBC (0-2) /HPF Urine WBC (0-5) /HPF Ur Squamous Epith Cells (0-2) /HPF Urine Bacteria (None Seen) Hyaline Casts (0-2) /LPF COVID-19 (ISABELA) Negative (Negative) COVID-19 Clin Com See Note Influenza Type A (BETTIE) Negative (Negative) Influenza Type B (BETTIE) Negative (Negative) Influenza A & B Note See Note 03/14/25 03/14/25 03/14/25 Range/Units 17:53 18:16 21:15 WBC (4.8-10.8) X10*3/uL RBC (4.60-5.80) X10*6/uL Hgb (14.0-18.0) g/dl Hct (42.0-52.0) % MCV (80.0-98.0) fL MCH (27.0-33.0) pg MCHC (31.0-36.0) g/dl RDW (11.0-16.0) % Plt Count (160-400) X10*3/uL MPV (9.4-12.4) fL Immature Gran % (Auto) (0.0-0.4) % Neut % (Auto) (45-73) % Lymph % (Auto) (20-40) % Bent % (Auto) (2-11) % Eos % (Auto) (0-4) % Baso % (Auto) (0-2) % Lymph # (Auto) (1.2-4.9) X10*3/uL Bent # (Auto) (0.1-1.2) X10*3/uL Eos # (Auto) (0.0-0.4) X10*3/uL Baso # (Auto) (0.0-0.2) X10*3/uL Abs Immat Gran (auto) (0.00-0.03) X10*3/uL Absolute Neuts (auto) (2.0-8.3) x10*3/uL Absolute Nucleated RBC (0.0-0.012) X10*3/uL Nucleated RBC % (auto) (0.0-0.2) /100WBC Hold Purple Top PT (11.2-13.5) SEC INR (0.9-1.1) Sodium (135-145) mmol/L Potassium (3.3-5.1) mmol/L Chloride (96-108) mmol/L Carbon Dioxide (22-29) mmol/L Anion Gap (12-20) BUN (9-16) mg/dL Creatinine (0.5-1.4) mg/dL Estim Creat Clear Calc Estimated GFR Random Glucose (60-115) mg/dL Lactic Acid (0.5-2.0) mmol/L Lactic Acid F/U @ 2Hr 2.7 H* (0.5-2.0) mmol/L Lactic Acid F/U @ 4Hr 2.6 H* (0.5-2.0) mmol/L Calcium (8.4-10.2) mg/dL Magnesium (1.6-2.6) mg/dL Total Bilirubin (0.0-1.0) mg/dL AST (5-37) U/L ALT (0-40) U/L Alkaline Phosphatase (39-117) U/L Troponin I High Sens (<3.5-35.0) ng/L Total Protein (6.5-8.0) g/dL Albumin (3.5-5.0) g/dL Urine Color Yellow Urine Appearance Clear Urine pH 5.0 (5.0-9.0) Ur Specific [place] 1.020 (1.005-1.025) Urine Protein Negative (Neg-Trace) mg/dL Urine Glucose (UA) Negative (Negative) mg/dL Urine Ketones Negative (Negative) mg/dL Urine Blood Negative (Negative) Urine Nitrite Negative (Negative) Ur Leukocyte Esterase Moderate (2+) H (Negative) Urine RBC 0-2 (0-2) /HPF Urine WBC 21-50 H (0-5) /HPF Ur Squamous Epith Cells 3-5 (0-2) /HPF Urine Bacteria 4+ (None Seen) Hyaline Casts 6-10 (0-2) /LPF COVID-19 (ISABELA) (Negative) COVID-19 Clin Com Influenza Type A (BETTIE) (Negative) Influenza Type B (BETTIE) (Negative) Influenza A & B Note Radiology Impression Discussion of test interpretation with radiology: I have reviewed the radiologist's reading. Independent Historian Clinical information obtained from an independent historian. History obtained from or confirmed by: Other ( daughter) External Record Review External record reviewed: Outpatient record Chronic Conditions history of atrial fibrillation Social Determinants Patient?s care significantly limited by Social Determinants of Health including: Problems related to primary support group Critical Care Time Critical Care Time Critical Care Time: Yes Total Critical Care Time: 40 Attestation: I have personally provided 40 minutes of critical care time exclusive of time spent on separately billable procedures. Time includes review of lab data, radiology results, discussion with consultants, and monitoring for potential decompensation. Interventions were performed as documented above Discharge Plan Discharge Clinical Impression: Bowel perforation Patient Disposition: Admitted As Inpatient
[2025-03-14 16:39] LABS: COVID-19 Test Negative (Negative); IDNOW Serial# 55D5AD1C; IDNOW Serial# 58CA691E; Influenza B2 Negative (Negative)
--- NOTE | 2025-03-14 17:51 | PC.NURSE ---
Pt's abd looking increasingly distended, tender to touch. Bladder scan completed showing urine >200ccs. Dr. Fatima made aware, verbal order for FC given. 16F FC placed w/o issue. UA obtained
[2025-03-14 17:59] LABS: Reflex Lactate? Lactic Acid Added
[2025-03-14 18:06] LABS: Appearance Urine Clear; Glucose Urine UA Negative (Negative); PH 5.0 (5.0-9.0); Specific Gravity - Urine 1.020 (1.005-1.025); UMIC TRIGGER UACC YES
--- NOTE | 2025-03-14 18:08 | PC.NURSE ---
Spoke to patient's daughter Linnea and [employer] supervisor Connie for updated regarding patients current health status. All questions answered, both linnea and connie verbalized understanding.
[2025-03-14 18:39] LABS: ~Lactic Acid-LAB USE ONLY 2.7 mmol/L (0.5-2.0)
[2025-03-14] MEDS: iohexoL 350 MG/ML 100 ML INFUS..BTL IV (18:47)
[2025-03-14 18:49] LABS: UACC Culture Trigger YES
[2025-03-14] MEDS: metroNIDAZOLE/NS 500 MG/100 ML PIGGYBACK 100 MG IV (19:42)
[2025-03-14 20:19] LABS: Reflex Lactate? 2 Y
--- NOTE | 2025-03-14 20:41 | P.CONHOSP_ITS ---
History of Present Illness Data of Consult Service Date: 03/14/25 Requesting physician: Tanesha Gil Primary Care Provider: Unknown Physician HPI Reason for consult: pre-op Pt is an 89 yo male from the [facility] with a pmhx significant for dementia, a fib on eliquis, HTN, CHF, HLD and BPH, who presented to the ED due to abd pain and chest pain x4 hours. the pt reports the pain is currently a 4/10, generalized. no fever, chills, nausea or vomting. was vomting on 03/08 per note from [facility] and last BM was 03/12. the pt has been week, hypotensive and tachycardic today. he denies any current chest pain, SOB, fever, chills, nausea or urinary sx including frequency, urgency or dysuria. the pt is a poor historian and is unable to provide any additional history at this time. w/u in the ED significant for sepsis secondary to bowel perforation. consult placed by surgeon for surgical risk stratification. Review of Systems 2 Constitutional: Constitutional: Denies body ache(s), Denies chills, Denies fatigue, Denies fever(s) and Denies headache(s) Eyes: Eyes: Denies change in vision ENT: Denies headache(s), Denies nasal discharge and Denies sore throat Cardiovascular: Cardiovascular: Denies chest pain, Denies rapid heart rate, Denies leg edema, Denies lightheadedness and Denies dyspnea Respiratory: Respiratory: Denies chest congestion, Denies cough, Denies dyspnea and Denies wheezing Gastrointestinal: Gastrointestinal: Reports as per HPI Genitourinary: Genitourinary: Denies dysuria, Denies urinary frequency and Denies urinary urgency Musculoskeletal: Musculoskeletal: Denies back pain Integumentary/Breasts: Skin/Breast: Denies rash Neurologic: Denies confusion and Denies headache(s) Psychiatric: Psychiatric: Denies confusion Endocrine: Endocrine: Denies fatigue Hematologic/Lymphatic: Hematologic/Lymphatic: Denies easy bleeding Allergic/Immunologic: Allergic/Immunologic: Denies wheezing [facility] Medical History (Updated 03/14/25 @ 22:47 by Tanesha Gil MD) BPH (benign prostatic hyperplasia) HLD (hyperlipidemia) CHF (congestive heart failure) HTN (hypertension) A-fib Dementia Social History Smoked in Last 30 Days: No Use of substances other than those prescribed or required for medical reasons: No Advance Directives: No Advance Directives Information Provided: No Do you have a plan to hurt others: No Plan Meds Allergies Allergy/AdvReac Type Severity Reaction Status Date / Time No Known Allergies Allergy Verified 03/14/25 15:10 Physical Exam 2 Vital Signs and Narrative: Vital Signs: Last Vital Signs Temp 97.9 F 03/14/25 18:06 Pulse 91 03/14/25 20:19 Resp 14 03/14/25 20:19 BP 99/61 03/14/25 20:19 Pulse Ox 95 03/14/25 20:19 O2 Del Method Room Air 03/14/25 20:19 BMI result Body Mass Index 22.0 General: AOx3, no acute distress, poor historian Resp: crackles lower lung jacobs, no wheezing or respiratory distress CVS: tachy +murmur GI: +BS, tender throughout with light touch, +distention Skin: Warm, dry Neuro: Cranial nerves II-XII grossly intact bilaterally. Motor grossly intact bilaterally Extremities: No pitting edema Psych: Appropriate affect Const: General: No confusion Orientation/consciousness: No confusion Neuro: General: No confusion Results Labs 03/14/25 15:50 03/14/25 15:50 Labs: Laboratory Results - last 24 hr 03/14/25 03/14/25 03/14/25 15:50 15:55 16:50 MCV 80.1 MCH 25.3 L MCHC 31.6 RDW 16.3 H Plt Count 346 D MPV 9.9 Immature Gran % (Auto) 0.7 H Neut % (Auto) 83.1 H Lymph % (Auto) 12.5 L Edwards % (Auto) 3.5 Eos % (Auto) 0.0 Baso % (Auto) 0.2 Lymph # (Auto) 2.7 Edwards # (Auto) 0.8 Eos # (Auto) 0.0 Baso # (Auto) 0.0 Abs Immat Gran (auto) 0.15 H Absolute Neuts (auto) 17.6 H Absolute Nucleated RBC 0.000 Nucleated RBC % (auto) 0.0 Hold Purple Top SEE NOTE PT 30.6 H INR 2.6 H Anion Gap 17 Estim Creat Clear Calc 33.0 Estimated GFR 48 Random Glucose 203 H Lactic Acid 4.1 H* Lactic Acid F/U @ 2Hr Calcium 9.8 D Magnesium 1.9 Total Bilirubin 0.7 AST 17 ALT 16 Alkaline Phosphatase 69 Troponin I High Sens 8.3 Total Protein 6.8 Albumin 3.7 Urine Color Urine Appearance Urine pH Ur Specific Trent Urine Protein Urine Glucose (UA) Urine Ketones Urine Blood Urine Nitrite Ur Leukocyte Esterase Urine RBC Urine WBC Ur Squamous Epith Cells Urine Bacteria Hyaline Casts COVID-19 (ISABELA) Negative COVID-19 Clin Com See Note Influenza Type A (BETTIE) Negative Influenza Type B (BETTIE) Negative Influenza A & B Note See Note 03/14/25 03/14/25 17:53 18:16 MCV MCH MCHC RDW Plt Count MPV Immature Gran % (Auto) Neut % (Auto) Lymph % (Auto) Edwards % (Auto) Eos % (Auto) Baso % (Auto) Lymph # (Auto) Edwards # (Auto) Eos # (Auto) Baso # (Auto) Abs Immat Gran (auto) Absolute Neuts (auto) Absolute Nucleated RBC Nucleated RBC % (auto) Hold Purple Top PT INR Anion Gap Estim Creat Clear Calc Estimated GFR Random Glucose Lactic Acid Lactic Acid F/U @ 2Hr 2.7 H* Calcium Magnesium Total Bilirubin AST ALT Alkaline Phosphatase Troponin I High Sens Total Protein Albumin Urine Color Yellow Urine Appearance Clear Urine pH 5.0 Ur Specific Trent 1.020 Urine Protein Negative Urine Glucose (UA) Negative Urine Ketones Negative Urine Blood Negative Urine Nitrite Negative Ur Leukocyte Esterase Moderate (2+) H Urine RBC 0-2 Urine WBC 21-50 H Ur Squamous Epith Cells 3-5 Urine Bacteria 4+ Hyaline Casts 6-10 COVID-19 (ISABELA) COVID-19 Clin Com Influenza Type A (BETTIE) Influenza Type B (BETTIE) Influenza A & B Note Assessment and Plan (1) Severe sepsis: Status: Acute (2) Small bowel perforation: Status: Acute Plan Pt is an 89 yo male from the [facility] with a pmhx significant for dementia, a fib on eliquis, HTN, CHF, HLD and BPH, who presented to the ED due to abd pain and chest pain x4 hours. severe sepsis secondary to bowel perforation - zosyn - IVF - NPO - high risk for planned emergent surgery, NSQIP as below - RCRI score 2, EKG non ischemic - plan per surgery acute lactic acidosis, secondary to severe sepsis - lactic trending down, 4.1-->2.7 - IVF - treat underlying cause UTI - zosyn as above - follow urine culture a fib with RVR, likely triggered by sepsis - INR 2.6, consider K centra pre-op - IVF - treat underlying cause - hold eliquis due to pending surgery RIOS - IVF - avoid nephrotoxins and low BP - follow cr HFpEF, no acute exacerbation - hold any diuretics due to sepsis HLD - hold statin due to RIOS BPH - hold flomax due to hypotension med rec pending DNR Thank you for allowing me to participate in the pt's care. Will follow. Please contact the medical team if any questions or concerns.
[2025-03-14 21:44] LABS: ~Lactic Acid-LAB USE ONLY 2.6 mmol/L (0.5-2.0)
--- NOTE | 2025-03-14 22:39 | P.HPGS_ITS ---
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 He was brought here today as he was complaining of abdominal pain. He had had some nausea and vomiting earlier. Uncertain if there was any blood. Generally he was not feeling well and was having some abdominal pain since last week. He did have a bowel movement as reported by the nursing staff on 03 12. Secondary to not feeling well and not improving he was brought to the emergency room and there was noted to be a little more tachycardic although and AFib. He baseline has AFib and is on Eliquis receiving a dose this morning.. Blood work was carried out in his white count was 17429. He was tender in the abdomen and CT scan of his abdomen and pelvis was carried out which revealed Pneumoperitoneum and thickened small bowel. Question etiology for potential bowel perforation. As a result surgical consultation was requested. Patient's daughters came in and were able to give little more history as the patient is little confused. They say that he does not have dimension is generally more alert and with it. Review of Systems Review of Systems: Yes Unobtainable due to mental status PMFSH Past Medical History Medical History (Updated 03/14/25 @ 22:47 by Tanesha Gil MD) BPH (benign prostatic hyperplasia) HLD (hyperlipidemia) CHF (congestive heart failure) HTN (hypertension) A-fib Dementia Social History Social History Smoked in Last 30 Days: No Use of substances other than those prescribed or required for medical reasons: No Advance Directives: No Advance Directives Information Provided: No Do you have a plan to hurt others: No Plan Meds Allergies Allergy/AdvReac Type Severity Reaction Status Date / Time No Known Allergies Allergy Verified 03/14/25 15:10 Active Medications: Current Medications Lactated Ringer's (Lr) 1,000 mls @ 100 mls/hr IVCONT .Q10H JAQUI Piperacillin Sod/Tazobactam (Sod 3.375 gm/ Sodium Chloride) 50 mls @ 100 mls/hr IV RQ6H JAQUI Morphine Sulfate (Morphine Sulfate 4 Mg/Ml Cartridge) 4 mg IVPUSH RQ4H PRN; Protocol PRN Reason: Pain, Severe (Pain Scale 7-10) Morphine Sulfate (Morphine Sulfate 4 Mg/Ml Cartridge) 2 mg IVPUSH RQ4H PRN; Protocol PRN Reason: Pain, Moderate(Pain Scale 4-6) Ondansetron HCl (Ondansetron Hcl 4 Mg/2 Ml Vial) 4 mg IVPUSH Q8H PRN PRN Reason: Nausea and Vomiting Pantoprazole Sodium (Pantoprazole Sodium 40 Mg/10 Ml Vial) 40 mg IVPUSH DAILY [facility] Sodium Chloride (0.9 % Sodium Chloride Flush 3 Ml Syringe) 3 ml IVFLUSH QSHIFT JAQUI Physical Exam Vital Signs: Vital Signs: Last Vital Signs Temp 98.3 F 03/14/25 22:00 Pulse 96 03/14/25 22:00 Resp 16 03/14/25 22:00 BP 111/52 L 03/14/25 22:00 Pulse Ox 92 03/14/25 22:00 O2 Del Method Room Air 03/14/25 22:00 BMI result Body Mass Index 22.0 Const: General: cooperative, healthy appearing and comfortable Orientation/consciousness: oriented to person HEENT: Head: Yes normal to inspection Resp: Effort & Inspection: normal respiratory effort Auscultation: clear to auscultation bilaterally Cardio: Rate: tachycardic Rhythm: abnormal rhythm GI: Other: abdomen is soft he is tender diffusely with maybe some localized peritoneal signs in the lower abdomen more so than the upper abdomen hypo bowel sounds Skin: Other: nonicteric no rashes Neuro: General: oriented to person Results Results Labs: Short CBC 03/14/25 Range/Units 15:50 WBC 21.2 H (4.8-10.8) X10*3/uL Hgb 12.2 L D (14.0-18.0) g/dl Hct 38.6 L D (42.0-52.0) % Plt Count 346 D (160-400) X10*3/uL BMP 03/14/25 15:50 Sodium 137 Potassium 5.1 D Chloride 101 Carbon Dioxide 24 BUN 47 H Creatinine 1.39 Calcium 9.8 D Liver Function 03/14/25 Range/Units 15:50 Total Bilirubin 0.7 (0.0-1.0) mg/dL AST 17 (5-37) U/L ALT 16 (0-40) U/L Alkaline Phosphatase 69 (39-117) U/L Albumin 3.7 (3.5-5.0) g/dL Urine 03/14/25 Range/Units 17:53 Urine Color Yellow Urine Appearance Clear Urine pH 5.0 (5.0-9.0) Ur Specific Hurt 1.020 (1.005-1.025) Urine Protein Negative (Neg-Trace) mg/dL Urine Glucose (UA) Negative (Negative) mg/dL Additional studies: [address] [address] [address] Scan Report Signed with Addenda Patient: Rhett Wren MR#: [id number] : 1935 Acct:[id number] Age/Sex: 89 / M ADM Date: 03/14/25 Loc: .ED Attending Dr: Ordering Physician: Heather Fatima MD Date of Service: 03/14/25 Procedure(s): CT abdomen pelvis w IV con Accession Number(s): [id number] cc: Heather Fatima MD; Physician,Unknown ~ Report Number: [id number]: Total DLP = 956.00 mGy-cm Reason for Exam: abd pain ADDENDUMThis document has been electronically signed by: Duncan Loredo MD on 03/14/2025 19:15:13 ADDENDUM: Receipt of this report by the clinical staff was confirmed with MICHAELA Good on Mar 14, 2025 19:25:00 EST. This document has been electronically signed by: Ethel Nunn on 03/14/2025 19:25:14 Addendum Dictated By: Duncan Loredo MD Addendum Signed By: <Electronically signed by Duncan Loredo MD in OV> 03/14/251925 Addendum Cosigned By: DD/ TD/TT: 03/14/25 CLINICAL HISTORY: abd pain Exam: Contrast-enhanced CT abdomen and pelvis with multiplanar reformats. Comparison: None. Findings: CT abdomen: Lung bases are grossly clear. There is zfaet-ol-[id number] volume pneumoperitoneum, mostly within the upper abdomen (4; 172), as well as a partially loculated or circumscribed collection of the extraluminal gas and air within the left hemipelvis, measuring up to 8.5 x 2.4 cm transverse and AP dimension (measured on 4; 425). There is fairly significant small bowel wall thickening and surrounding stranding involving proximal small bowel loops in this region with additional foci of extraluminal gas (4; 412-492), suggesting nonspecific enteritis with perforation. Sigmoid colon reveal sequela of prior partial resection and anastomosis. Colonic diverticulosis is present, without definitive CT evidence of diverticulitis. No other abnormal bowel wall thickening or distention. Additional extraluminal collections of the gas and fluid are present within right hemipelvis (4; 587 -45), measuring up to 3 cm cross-sectional dimension (4; 565), and extending over a craniocaudad distance of roughly 6 cm (7; 41). Otherwise liver is free of focal lesions and ductal dilatation. Gallbladder reveals cholelithiasis, without CT evidence of cholecystitis. Spleen appears unremarkable. Pancreas and adrenal glands appear unremarkable. Kidneys reveal small right renal cysts which appear grossly simple, kidneys otherwise appear unremarkable. Small amount of free intraperitoneal fluid appears likely reactive. No retroperitoneal masses or adenopathy. Abdominal aorta is normal caliber with moderate calcific atherosclerosis. CT pelvis: A Garg catheter is present within urinary bladder. No gross pelvic masses or adenopathy. Osseous structures reveal no destructive osseous lesions. Impression: 1. Pneumoperitoneum with scattered partially loculated collections of the gas and fluid within the peritoneum. There is fairly significant small bowel wall thickening and stranding in this region, findings suggest bowel perforation likely related to significant enteritis. This document has been electronically signed by: Duncan Loredo MD on 03/14/2025 19:15:13 Dictated By: Duncan Loredo MD Signed By: <Electronically signed by Duncna Loredo MD in OV> 03/14/251915 DD/ 14 TD/TT: 03/14/251914 Clin Tech: Assessment and Plan (1) Bowel perforation: Status: Acute 89-year-old male with past cardiac history status post bypass many years ago with recurrent AFib and history of CHF anticoagulated on Eliquis received his dose this morning not this afternoon coming in with abdominal pain from the [facility] and some nausea and vomiting. Here was [place] [address] elevated lactic acid which improved with hydration Garg catheter insertion. INR was 2.6. CT scan of his abdomen and pelvis showed pneumoperitoneum and some free fluid in the pelvis. patient tender in the lower abdomen more than the upper abdomen but CT scan does not have definitive cause for the perforation question small bowel was that is seems to be more thickened. This is more unusual to be the cause for perforation. Patient had maybe a history of an ulcer many years ago has not been taking any significant NSAIDs by nursing report or on his med rec. Patient has been resuscitated in the ER and plan is to admit to telemetry continue with IV fluid resuscitation IV antibiotics NPO IV pain medication and med consult. Patient relatively stable right now and we would prefer to wait until the morning getting closer to 24 hours off his Eliquis and then giving Kcentra as needed and then carry out exploratory laparotomy. Extensive discussion was had with the patient's 2 daughters and his cwwvt-up-alexonbt Kemi. They understand that he has some significant risks to any surgery with the patient would like to have surgery and they would like to have him have the opportunity to improve from whatever is going on. If he gets worse in regards to vitals or increasing uncontrolled pain than the need for emergent surgery may necessitate operation tonight which would increase potential morbidity and mortality risks including but not limited to bleeding infection cardiac event stroke event. They understand that there maybe a possibility for an ostomy and bowel resection. We will admit continue with IV antibiotics IV fluid resuscitation medical consultation cardiology consultation as needed. They understand Quality Stroke Does the patient have a stroke diagnosis?: No VTE Prior VTE?: No VTE Risk Level:: Surgical - low VTE Device Contraindication: N/A - Device Ordered VTE Drug Contraindication: Treatment Not Indicated Procedures Date of Service Date of Service: 03/14/25
[2025-03-15] VITALS (19 sets, daily range): BP systolic 87–128; BP diastolic 45–83; PULSE 78–123; RESP 16–28; TEMP 36–37.7; O2SAT 90–99; BMI 23.4
--- NOTE | 2025-03-15 | ECG_ITS ---
Test Reason : TACHYCARDIA Blood Pressure : */* mmHG Vent. Rate : 114 BPM Atrial Rate : * BPM P-R Int : * ms QRS Dur : 120 ms QT Int : 304 ms P-R-T Axes : * 56 13 degrees QTcB Int : 419 ms Atrial fibrillation with rapid ventricular response Right bundle branch block Abnormal ECG When compared with ECG of 14-Mar-2025 15:11, No significant change was found Referred By: Evelyn aWite Electronically Signed By: ARMANDO MURO MD
[2025-03-15] MEDS: Lactated Ringers 1,000 ML 100 ML IVCONT ×2 (00:06→11:24)
--- NOTE | 2025-03-15 00:35 | PC.NURSE ---
Addendum entered by Ashlie Ayala RN 03/15/25 04:48: notified Evelyn Waite at this time. Louise PHILLIPS was notified at 0129 Original Note: notified Dr Gil of patient condition with elevated heart rate and of the orders placed by hospitialist for ekg, iv tylenol and repeat lactic acid. no new orders received
--- NOTE | 2025-03-15 01:44 | HO.NURTONUR ---
Addendum entered by Ashlie Ayala RN 03/15/25 04:50: redraw of lactic acid result 1.9 Original Note: 89 yr old male here from [facility]. BIBA for c/o abd pain and chest pain. Abd is distended. Garg cath in place. Clear yellow urine in bag. I&O in place. NPO for surgical intervention tomorrow for perforated bowel. fever 100.5 upon arrival. Lactic 4.1 now 2.6 (one was just drawn about 0130). IV 22 g LFA. Patient is AO x 1-2. Worked him up sepsis protocol yesterday per prior RN. Couple things to note. has chronic AF and takes eliquis (holding now for surgery) when he came in ekg showed AF w/RVR. HR was down when i got to work. about 0030 started to notice some tachycardia. running 90's-115. when typing this is is 92-96. His BP runs soft (or has since his admit to ER yesterday) last one was 99/56. I recheked the rectal temp 99.9, hospitalist was notified of all that information and she ordered a repeat lactic, the ekg and some iv tylenol. Sent copy of EKG to her and I also notified the surgeon Dr. Gil of all this stuff. She had no new orders but is aware. He is resting fine without any issues and HR holding in mid 90's. Just wanted to make sure his next nurse knows all this and that all the MD's are aware. please call or tiger text and i will answer any questions. Meds he got in ER were: Ofirmev x2. LR 1900ml, flagyl, rocephin 2 gm, zosyn, morphine 2mg, zofran, and IVF running LR @100/hr.
--- NOTE | 2025-03-15 04:45 | PC.NURSE ---
notified Mariann that pt heart rate is still elevated 90's- 119 - no new orders
[2025-03-15 05:16] LABS: Hematocrit 32.2 % (42.0-52.0); Hemoglobin 10.5 g/dl (14.0-18.0); Mean Corpuscular HGB Conc 32.6 g/dl (31.0-36.0); Mean Corpuscular Hemoglobin 25.4 pg (27.0-33.0); Mean Corpuscular Volume 78.0 fL (80.0-98.0); NRBC Abs Auto 0.000 X10*3/uL (0.0-0.012); NRBC Pct Auto 0.0 /100WBC (0.0-0.2); Platelet Count 275 X10*3/uL (160-400); Red Blood Count 4.13 X10*6/uL (4.60-5.80); White Blood Count 14.5 X10*3/uL (4.8-10.8)
[2025-03-15 05:22] LABS: INTERNATIONAL NORM RATIO 2.5 (0.9-1.1); Prothrombin Time 29.8 SEC (11.2-13.5)
[2025-03-15 05:34] LABS: Anion Gap 14 (12-20); Blood Urea Nitrogen 42 mg/dL (9-16); Calcium 8.6 mg/dL (8.4-10.2); Carbon Dioxide 21 mmol/L (22-29); Chloride 106 mmol/L (96-108); Creatinine Clr Calc Pharmacy 38.5; Estimated Glomerular Filt Rate 58; Magnesium 1.6 mg/dL (1.6-2.6); Potassium 5.3 mmol/L (3.3-5.1); Sodium 136 mmol/L (135-145)
[2025-03-15 06:06] LABS: Atypical Lymph Absolute Manual 0.1 x10*3/uL; Atypical Lymphs Percent Manual 1 % (0-6); Band Neutrophils Percent 15 % (3-5); Burr Cells 3+ (>5) /OIF; Lymphocytes Absolute Manual 1.9 X10*3/uL (1.2-4.9); Lymphocytes Percent Manual 13 % (20-40); Monocytes Absolute Manual 0.1 X10*3/uL (0.1-1.2); Monocytes Percent Manual 1 % (2-11); Neutrophils Absolute Manual 12.3 X10*3/uL (2.0-8.3); Neutrophils Percent Manual 70 % (45-73); RBC Morphology NOTED
[2025-03-15 06:07] LABS: Large Platelet PRESENT
[2025-03-15 06:08] LABS: Toxic Vacuolation PRESENT
--- NOTE | 2025-03-15 06:40 | PC.NURSE ---
nt is saying he would like to get up and leave the hospital. confused saying we are making him stay here for days already. redirected and explained about his current condition and need to have surgery today. told patient he will be going upstairs to a real room with a more comfortable bed and his daughters will be visiting him this morning. pt seemed to settle and fall back asleep at this time
--- NOTE | 2025-03-15 07:58 | PC.NURSE ---
Placed 20g left forearm. Patient pulled out 22g in right wrist.
--- NOTE | 2025-03-15 08:32 | HO.PM.IMPN ---
Subjective Subjective Date of Service: 03/15/25 Interval History: Pt seen and examined in ED, he's complaining about some abdominal pain He is in AFIB with variable rate, mostly in 110's BP OK. It's my understanding he will be going to surgery today Physical Exam Vital Signs: Vital Signs: Last Vital Signs Temp 97.7 F 03/15/25 08:28 Pulse 111 H 03/15/25 08:28 Resp 16 03/15/25 08:28 BP 126/65 03/15/25 08:28 Pulse Ox 94 03/15/25 08:28 O2 Del Method Room Air 03/15/25 08:28 BMI result Body Mass Index 22.0 Const: Other: General: AO X 3, no acute distress Resp: CTA bilateral CVS: S1,S iregular iregular GI:Tender to minimal touch, guarding Skin: No rash Neuro: motor grossly intact Psych: appropriate affect Objective Data Active Medications Lactated Ringer's (Lr) 1,000 mls @ 100 mls/hr IVCONT .Q10H [facility] Last Admin: 03/15/25 00:06 Dose: 100 mls/hr Documented By: BOB Piperacillin Sod/Tazobactam (Sod 3.375 gm/ Sodium Chloride) 50 mls @ 100 mls/hr IV RQ6H [facility] Last Infusion: 03/15/25 06:46 Dose: Infused Documented By: BOB Morphine Sulfate (Morphine Sulfate 4 Mg/Ml Cartridge) 4 mg IVPUSH RQ4H PRN; Protocol PRN Reason: Pain, Severe (Pain Scale 7-10) Morphine Sulfate (Morphine Sulfate 4 Mg/Ml Cartridge) 2 mg IVPUSH RQ4H PRN; Protocol PRN Reason: Pain, Moderate(Pain Scale 4-6) Last Admin: 03/15/25 00:17 Dose: 2 mg Documented By: BOB Ondansetron HCl (Ondansetron Hcl 4 Mg/2 Ml Vial) 4 mg IVPUSH Q8H PRN PRN Reason: Nausea and Vomiting Pantoprazole Sodium (Pantoprazole Sodium 40 Mg/10 Ml Vial) 40 mg IVPUSH DAILY@0630 [facility] Last Admin: 03/15/25 06:14 Dose: 40 mg Documented By: BOB Sodium Chloride (0.9 % Sodium Chloride Flush 3 Ml Syringe) 3 ml IVFLUSH QSHIFT [facility] Last Admin: 03/15/25 06:53 Dose: Not Given Documented By: GRACE Non-Admin Reason: IV Running Labs 03/15/25 05:04 03/15/25 05:04 Labs: Laboratory Results - last 24 hr 03/14/25 03/14/25 03/14/25 15:50 15:55 16:50 MCV 80.1 MCH 25.3 L MCHC 31.6 RDW 16.3 H Plt Count 346 D MPV 9.9 Immature Gran % (Auto) 0.7 H Neut % (Auto) 83.1 H Lymph % (Auto) 12.[address] [place] % (Auto) 3.5 Eos % (Auto) 0.0 Baso % (Auto) 0.2 Lymph # (Auto) 2.7 [place] # (Auto) 0.8 Eos # (Auto) 0.0 Baso # (Auto) 0.0 Abs Immat Gran (auto) 0.15 H Absolute Neuts (auto) 17.6 H Absolute Nucleated RBC 0.000 Nucleated RBC % (auto) 0.0 Neutrophils % (Manual) Band Neutrophils % Lymphocytes % (Manual) Atypical Lymphs % (Man) Monocytes % (Manual) Abs Neuts (Manual) Lymphocytes # (Manual) Atyp Lymphs # (Manual) Monocytes # (Manual) Toxic Vacuolation Platelet Estimate Large Platelets Plt Morphology Comment RBC Morphology [place] Cells Hold Purple Top SEE NOTE PT 30.6 H INR 2.6 H Anion Gap 17 Estim Creat Clear Calc 33.0 Estimated GFR 48 Random Glucose 203 H Lactic Acid 4.1 H* Lactic Acid F/U @ 2Hr Lactic Acid F/U @ 4Hr Calcium 9.8 D Phosphorus Magnesium 1.9 Total Bilirubin 0.7 AST 17 ALT 16 Alkaline Phosphatase 69 Troponin I High Sens 8.3 Total Protein 6.8 Albumin 3.7 Urine Color Urine Appearance Urine pH Ur Specific [place] Urine Protein Urine Glucose (UA) Urine Ketones Urine Blood Urine Nitrite Ur Leukocyte Esterase Urine RBC Urine WBC Ur Squamous Epith Cells Urine Bacteria Hyaline Casts COVID-19 (ISABELA) Negative COVID-19 Clin Com See Note Influenza Type A (BETTIE) Negative Influenza Type B (BETTIE) Negative Influenza A & B Note See Note Blood Type Antibody Screen 03/14/25 03/14/25 03/14/25 17:53 18:16 21:15 MCV MCH MCHC RDW Plt Count MPV Immature Gran % (Auto) Neut % (Auto) Lymph % (Auto) [place] % (Auto) Eos % (Auto) Baso % (Auto) Lymph # (Auto) [place] # (Auto) Eos # (Auto) Baso # (Auto) Abs Immat Gran (auto) Absolute Neuts (auto) Absolute Nucleated RBC Nucleated RBC % (auto) Neutrophils % (Manual) Band Neutrophils % Lymphocytes % (Manual) Atypical Lymphs % (Man) Monocytes % (Manual) Abs Neuts (Manual) Lymphocytes # (Manual) Atyp Lymphs # (Manual) Monocytes # (Manual) Toxic Vacuolation Platelet Estimate Large Platelets Plt Morphology Comment RBC Morphology [place] Cells Hold Purple Top PT INR Anion Gap Estim Creat Clear Calc Estimated GFR Random Glucose Lactic Acid Lactic Acid F/U @ 2Hr 2.7 H* Lactic Acid F/U @ 4Hr 2.6 H* Calcium Phosphorus Magnesium Total Bilirubin AST ALT Alkaline Phosphatase Troponin I High Sens Total Protein Albumin Urine Color Yellow Urine Appearance Clear Urine pH 5.0 Ur Specific [place] 1.020 Urine Protein Negative Urine Glucose (UA) Negative Urine Ketones Negative Urine Blood Negative Urine Nitrite Negative Ur Leukocyte Esterase Moderate (2+) H Urine RBC 0-2 Urine WBC 21-50 H Ur Squamous Epith Cells 3-5 Urine Bacteria 4+ Hyaline Casts 6-10 COVID-19 (ISABELA) COVID-19 Clin Com Influenza Type A (BETTIE) Influenza Type B (BETTIE) Influenza A & B Note Blood Type Antibody Screen 03/14/25 03/15/25 03/15/25 22:59 01:20 05:04 MCV 78.0 L MCH 25.4 L MCHC 32.6 RDW 16.3 H Plt Count 275 MPV 9.7 Immature Gran % (Auto) Cancelled Neut % (Auto) Cancelled Lymph % (Auto) Cancelled [place] % (Auto) Cancelled Eos % (Auto) Cancelled Baso % (Auto) Cancelled Lymph # (Auto) Cancelled [place] # (Auto) Cancelled Eos # (Auto) Cancelled Baso # (Auto) Cancelled Abs Immat Gran (auto) Cancelled Absolute Neuts (auto) Cancelled Absolute Nucleated RBC 0.000 Nucleated RBC % (auto) 0.0 Neutrophils % (Manual) 70 Band Neutrophils % 15 H Lymphocytes % (Manual) 13 L Atypical Lymphs % (Man) 1 Monocytes % (Manual) 1 L Abs Neuts (Manual) 12.3 H Lymphocytes # (Manual) 1.9 Atyp Lymphs # (Manual) 0.1 Monocytes # (Manual) 0.1 Toxic Vacuolation PRESENT Platelet Estimate NORMAL Large Platelets PRESENT Plt Morphology Comment NOTED RBC Morphology NOTED [place] Cells 3+ (>5) Hold Purple Top PT 29.8 H INR 2.5 H Anion Gap 14 Estim Creat Clear Calc 38.5 Estimated GFR 58 Random Glucose 142 H Lactic Acid 1.9 Lactic Acid F/U @ 2Hr Lactic Acid F/U @ 4Hr Calcium 8.6 D Phosphorus 3.8 Magnesium 1.6 Total Bilirubin AST ALT Alkaline Phosphatase Troponin I High Sens Total Protein Albumin Urine Color Urine Appearance Urine pH Ur Specific [place] Urine Protein Urine Glucose (UA) Urine Ketones Urine Blood Urine Nitrite Ur Leukocyte Esterase Urine RBC Urine WBC Ur Squamous Epith Cells Urine Bacteria Hyaline Casts COVID-19 (ISABELA) COVID-19 Clin Com Influenza Type A (BETTIE) Influenza Type B (BETTIE) Influenza A & B Note Blood Type O Positive Antibody Screen NEGATIVE Assessment and Plan (1) Severe sepsis: Status: Acute (2) Small bowel perforation: Status: Acute (3) RIOS (acute kidney injury): Status: Acute Plan 89 yo male from the [facility] with a pmhx significant for dementia, a fib on eliquis, HTN, CHF, HLD and BPH, who presented to the ED due to abd pain and chest pain x4 hours and found to have perforated viscus complicated by severe sepsis Perforated viscus with Severe sepsis This patient has significant comorbidities, including dementia, atrial fibrillation (on Eliquis within the last 48 hours), and heart failure. These conditions place him at?very high risk?for both emergent surgery and postoperative complications. The risks are further compounded by his advanced age and current septic state. Perioperative Considerations: Further cardiac testing is unlikely to alter the immediate clinical management or surgical risk profile. Family has been informed of the substantial risks and potential benefits, as documented in the surgical note. Given recent Eliquis use, Kcentra should be considered to reduce perioperative bleeding risks. Continue Zosyn, IVF, follow cultures See NSQIP below RCRI score 2, EKG non ischemic acute lactic acidosis, secondary to severe sepsis lactic trending down, 4.1-->2.7 IVF treat underlying cause UTI zosyn as above follow urine culture a fib with RVR, likely triggered by sepsis INR 2.6, consider K centra pre-op treat underlying cause hold eliquis eyad-op if needed IV metoprolol to control HR RIOS d/t ATN from sepsis improving IVF daily bmp HFpEF, no acute exacerbation hold any diuretics due to sepsis monitor for symptoms while on IVF HLD resume statin after surgery BPH hold flomax due tohypotension resume when stable after surgery med rec not completed by pharmacy DNR s. Quality Stroke Does the patient have a stroke diagnosis?: No VTE Prior VTE?: No VTE Risk Level:: Surgical - low VTE Device Contraindication: N/A - Device Ordered VTE Drug Contraindication: Treatment Not Indicated
[2025-03-15] MEDS: Hum Prothrombin Cplx(PCC)4Fact 2,000 UNIT in Container,Empty 0 ML 480 UNIT IV (08:48)
--- NOTE | 2025-03-15 09:35 | PHA.MEDREC ---
Pharmacy Consult ? Medication Reconciliation Pharmacy has completed the medication reconciliation, using medication list from [facility] [phone].
--- NOTE | 2025-03-15 10:34 | PM.PNGS ---
Subjective Subjective Date of Service: 03/15/25 Interval history: pt says feeling better but abdominal pain still present with movement. denies chest pain or shortness of breath Physical Exam Vital Signs: Vital Signs: Last Vital Signs Temp 97.3 F 03/15/25 10:17 Pulse 123 H 03/15/25 10:17 Resp 20 03/15/25 10:17 BP 120/83 03/15/25 10:17 Pulse Ox 93 03/15/25 10:17 O2 Del Method Nasal Cannula 03/15/25 10:17 O2 Flow Rate 4 03/15/25 10:17 BMI result Body Mass Index 22.0 Const: General: cooperative and no acute distress Cardio: Rate: tachycardic Rhythm: abnormal rhythm GI: Other: soft tender diffusely with peritoneal signs Objective Data Active Medications Lactated Ringer's (Lr) 1,000 mls @ 100 mls/hr IVCONT .Q10H [facility] Last Admin: 03/15/25 09:41 Dose: Not Given Documented By: KAROL Non-Admin Reason: See Note Piperacillin Sod/Tazobactam (Sod 3.375 gm/ Sodium Chloride) 50 mls @ 100 mls/hr IV RQ6H [facility] Last Infusion: 03/15/25 06:46 Dose: Infused Documented By: BOB Morphine Sulfate (Morphine Sulfate 4 Mg/Ml Cartridge) 4 mg IVPUSH RQ4H PRN; Protocol PRN Reason: Pain, Severe (Pain Scale 7-10) Morphine Sulfate (Morphine Sulfate 4 Mg/Ml Cartridge) 2 mg IVPUSH RQ4H PRN; Protocol PRN Reason: Pain, Moderate(Pain Scale 4-6) Last Admin: 03/15/25 00:17 Dose: 2 mg Documented By: BOB Ondansetron HCl (Ondansetron Hcl 4 Mg/2 Ml Vial) 4 mg IVPUSH Q8H PRN PRN Reason: Nausea and Vomiting Pantoprazole Sodium (Pantoprazole Sodium 40 Mg/10 Ml Vial) 40 mg IVPUSH DAILY@0630 [facility] Last Admin: 03/15/25 06:14 Dose: 40 mg Documented By: BOB Sodium Chloride (0.9 % Sodium Chloride Flush 3 Ml Syringe) 3 ml IVFLUSH QSHIFT [facility] Last Admin: 03/15/25 06:53 Dose: Not Given Documented By: GRACE Non-Admin Reason: IV Running Labs 03/15/25 05:04 03/15/25 05:04 Labs: Laboratory Results - last 24 hr 03/14/25 03/14/25 03/14/25 15:50 15:55 16:50 MCV 80.1 MCH 25.3 L MCHC 31.6 RDW 16.3 H Plt Count 346 D MPV 9.9 Immature Gran % (Auto) 0.7 H Neut % (Auto) 83.1 H Lymph % (Auto) 12.5 L [place] % (Auto) 3.5 Eos % (Auto) 0.0 Baso % (Auto) 0.2 Lymph # (Auto) 2.7 [place] # (Auto) 0.8 Eos # (Auto) 0.0 Baso # (Auto) 0.0 Abs Immat Gran (auto) 0.15 H Absolute Neuts (auto) 17.6 H Absolute Nucleated RBC 0.000 Nucleated RBC % (auto) 0.0 Neutrophils % (Manual) Band Neutrophils % Lymphocytes % (Manual) Atypical Lymphs % (Man) Monocytes % (Manual) Abs Neuts (Manual) Lymphocytes # (Manual) Atyp Lymphs # (Manual) Monocytes # (Manual) Toxic Vacuolation Platelet Estimate Large Platelets Plt Morphology Comment RBC Morphology [place]rice Cells Hold Purple Top SEE NOTE PT 30.6 H INR 2.6 H Anion Gap 17 Estim Creat Clear Calc 33.0 Estimated GFR 48 Random Glucose 203 H Lactic Acid 4.1 H* Lactic Acid F/U @ 2Hr Lactic Acid F/U @ 4Hr Calcium 9.8 D Phosphorus Magnesium 1.9 Total Bilirubin 0.7 AST 17 ALT 16 Alkaline Phosphatase 69 Troponin I High Sens 8.3 Total Protein 6.8 Albumin 3.7 Urine Color Urine Appearance Urine pH Ur Specific [place] Urine Protein Urine Glucose (UA) Urine Ketones Urine Blood Urine Nitrite Ur Leukocyte Esterase Urine RBC Urine WBC Ur Squamous Epith Cells Urine Bacteria Hyaline Casts COVID-19 (ISABELA) Negative COVID-19 Clin Com See Note Influenza Type A (BETTIE) Negative Influenza Type B (BETTIE) Negative Influenza A & B Note See Note Blood Type Antibody Screen 03/14/25 03/14/25 03/14/25 17:53 18:16 21:15 MCV MCH MCHC RDW Plt Count MPV Immature Gran % (Auto) Neut % (Auto) Lymph % (Auto) [place] % (Auto) Eos % (Auto) Baso % (Auto) Lymph # (Auto) [place] # (Auto) Eos # (Auto) Baso # (Auto) Abs Immat Gran (auto) Absolute Neuts (auto) Absolute Nucleated RBC Nucleated RBC % (auto) Neutrophils % (Manual) Band Neutrophils % Lymphocytes % (Manual) Atypical Lymphs % (Man) Monocytes % (Manual) Abs Neuts (Manual) Lymphocytes # (Manual) Atyp Lymphs # (Manual) Monocytes # (Manual) Toxic Vacuolation Platelet Estimate Large Platelets Plt Morphology Comment RBC Morphology [place] Cells Hold Purple Top PT INR Anion Gap Estim Creat Clear Calc Estimated GFR Random Glucose Lactic Acid Lactic Acid F/U @ 2Hr 2.7 H* Lactic Acid F/U @ 4Hr 2.6 H* Calcium Phosphorus Magnesium Total Bilirubin AST ALT Alkaline Phosphatase Troponin I High Sens Total Protein Albumin Urine Color Yellow Urine Appearance Clear Urine pH 5.0 Ur Specific [place] 1.020 Urine Protein Negative Urine Glucose (UA) Negative Urine Ketones Negative Urine Blood Negative Urine Nitrite Negative Ur Leukocyte Esterase Moderate (2+) H Urine RBC 0-2 Urine WBC 21-50 H Ur Squamous Epith Cells 3-5 Urine Bacteria 4+ Hyaline Casts 6-10 COVID-19 (ISABELA) COVID-19 Clin Com Influenza Type A (BETTIE) Influenza Type B (BETTIE) Influenza A & B Note Blood Type Antibody Screen 03/14/25 03/15/25 03/15/25 22:59 01:20 05:04 MCV 78.0 L MCH 25.4 L MCHC 32.6 RDW 16.3 H Plt Count 275 MPV 9.7 Immature Gran % (Auto) Cancelled Neut % (Auto) Cancelled Lymph % (Auto) Cancelled [place] % (Auto) Cancelled Eos % (Auto) Cancelled Baso % (Auto) Cancelled Lymph # (Auto) Cancelled [place] # (Auto) Cancelled Eos # (Auto) Cancelled Baso # (Auto) Cancelled Abs Immat Gran (auto) Cancelled Absolute Neuts (auto) Cancelled Absolute Nucleated RBC 0.000 Nucleated RBC % (auto) 0.0 Neutrophils % (Manual) 70 Band Neutrophils % 15 H Lymphocytes % (Manual) 13 L Atypical Lymphs % (Man) 1 Monocytes % (Manual) 1 L Abs Neuts (Manual) 12.3 H Lymphocytes # (Manual) 1.9 Atyp Lymphs # (Manual) 0.1 Monocytes # (Manual) 0.1 Toxic Vacuolation PRESENT Platelet Estimate NORMAL Large Platelets PRESENT Plt Morphology Comment NOTED RBC Morphology NOTED [place] Cells 3+ (>5) Hold Purple Top PT 29.8 H INR 2.5 H Anion Gap 14 Estim Creat Clear Calc 38.5 Estimated GFR 58 Random Glucose 142 H Lactic Acid 1.9 Lactic Acid F/U @ 2Hr Lactic Acid F/U @ 4Hr Calcium 8.6 D Phosphorus 3.8 Magnesium 1.6 Total Bilirubin AST ALT Alkaline Phosphatase Troponin I High Sens Total Protein Albumin Urine Color Urine Appearance Urine pH Ur Specific [place] Urine Protein Urine Glucose (UA) Urine Ketones Urine Blood Urine Nitrite Ur Leukocyte Esterase Urine RBC Urine WBC Ur Squamous Epith Cells Urine Bacteria Hyaline Casts COVID-19 (ISABELA) COVID-19 Clin Com Influenza Type A (BETTIE) Influenza Type B (BETTIE) Influenza A & B Note Blood Type O Positive Antibody Screen NEGATIVE Microbiology Microbiology Results: Microbiology 03/14/25 21:15 Urine Culture - Preliminary Urine clean catch - Clean Catch Midstream No growth to date. Procedures Date of Service Date of Service: 03/15/25 Progress Note: A&P Assessment and plan (1) Bowel perforation: Status: Acute Assessment and Plan: 89 year old male anticoagulated on eliquis for AFib with cardiac history s/p cornoary bypass remotely, presenting with abdominal pain and [place] revealing elevated wbc 21 improved this morning, and ct scan showing free air. reviewed with radiology and sigmoid area in question vs small bowel with airfluid collection/abscess. Pt was resuscitated overnight, vitals improved although blood pressure has dipped a little lower at times, making urine (murray in ), receiving Zosyn. Plan was to stabilize and wait at least 24 hrs after last Eliquis dose and then give Kcentra this am before surgery. Pt had dose of 2000 units (reviewed with Pharmacy) and plan to take to surgery for exploratory laparotomy - most likely perforated sigmoid colon - will most likely do Fine porcedure. Hospitalist team determing moderate risk for surgery and following along. Risks and benefits discussed with the family and they agree to proceed. Time Spent With Patient Time: Total time managing care of this patient today ____ minutes. Quality Stroke Does the patient have a stroke diagnosis?: No VTE Prior VTE?: No VTE Risk Level:: Surgical - low VTE Device Contraindication: N/A - Device Ordered VTE Drug Contraindication: Treatment Not Indicated
[2025-03-15 11:21] LABS: Hematocrit 35.2 % (42.0-52.0); Hemoglobin 11.2 g/dl (14.0-18.0); Mean Corpuscular HGB Conc 31.8 g/dl (31.0-36.0); Mean Corpuscular Hemoglobin 25.2 pg (27.0-33.0); Mean Corpuscular Volume 79.1 fL (80.0-98.0); NRBC Abs Auto 0.000 X10*3/uL (0.0-0.012); NRBC Pct Auto 0.0 /100WBC (0.0-0.2); Platelet Count 311 X10*3/uL (160-400); Red Blood Count 4.45 X10*6/uL (4.60-5.80); White Blood Count 17.7 X10*3/uL (4.8-10.8)
[2025-03-15 11:23] LABS: INTERNATIONAL NORM RATIO 1.8 (0.9-1.1); Prothrombin Time 22.2 SEC (11.2-13.5)
[2025-03-15 11:26] LABS: Partial Thromboplastin Time 33.6 SEC (26.7-34.1)
[2025-03-15 11:29] LABS: Anion Gap 15 (12-20); Blood Urea Nitrogen 40 mg/dL (9-16); Calcium 9.0 mg/dL (8.4-10.2); Carbon Dioxide 20 mmol/L (22-29); Chloride 107 mmol/L (96-108); Creatinine Clr Calc Pharmacy 37.3; Estimated Glomerular Filt Rate 56; Potassium 5.0 mmol/L (3.3-5.1); Sodium 137 mmol/L (135-145)
--- NOTE | 2025-03-15 11:35 | HO.ANESPROP2 ---
Documented by User: Carole Cervantes NP 03/15/25 11:49 HPI - Anesthesia Eval Consult details Narrative: 89 yr old male for exploratory laparotomy *DNR/DNI From [facility], dementia. INR repeated 03/15 1.8 K+ repeated 5.0 On 4 liters O2, sats low 90s Afib: likely 2/2 sepsis; rates 120s CAD: s/p 3 vessel bypass in 1994. Last cardiology note found from [facility] 2022, echo from 2020, see below [facility] Active Problems Active Problems: All Active Problems Bowel perforation (Acute) RIOS (acute kidney injury) (Acute) Acute lactic acidosis (Acute) UTI (urinary tract infection) (Acute) Severe sepsis (Acute) Small bowel perforation (Acute) BPH (benign prostatic hyperplasia) (Acute) HLD (hyperlipidemia) (Acute) CHF (congestive heart failure) (Acute) HTN (hypertension) (Acute) A-fib (Acute) Dementia (Acute) Past Medical History Medical History (Updated 03/14/25 @ 22:58 by Heather Fatima MD) BPH (benign prostatic hyperplasia) HLD (hyperlipidemia) CHF (congestive heart failure) HTN (hypertension) A-fib Dementia Social History Social History Patient Tobacco Use Status: Former Tobacco user Smoked in Last 30 Days: No Use of substances other than those prescribed or required for medical reasons: No Are you DNR?: Yes Advance Directives: No Advance Directives Information Provided: No Do you have a plan to hurt others: No Plan service: No Meds Allergies Allergy/AdvReac Type Severity Reaction Status Date / Time No Known Allergies Allergy Verified 03/14/25 15:10 Active Medications: Current Medications Lactated Ringer's (Lr) 1,000 mls @ 100 mls/hr IVCONT .Q10H JAQUI Last Admin: 03/15/25 11:24 Dose: 100 mls/hr Piperacillin Sod/Tazobactam (Sod 3.375 gm/ Sodium Chloride) 50 mls @ 100 mls/hr IV RQ6H JAQUI Last Infusion: 03/15/25 06:46 Dose: Infused Morphine Sulfate (Morphine Sulfate 4 Mg/Ml Cartridge) 4 mg IVPUSH RQ4H PRN; Protocol PRN Reason: Pain, Severe (Pain Scale 7-10) Morphine Sulfate (Morphine Sulfate 4 Mg/Ml Cartridge) 2 mg IVPUSH RQ4H PRN; Protocol PRN Reason: Pain, Moderate(Pain Scale 4-6) Last Admin: 03/15/25 00:17 Dose: 2 mg Ondansetron HCl (Ondansetron Hcl 4 Mg/2 Ml Vial) 4 mg IVPUSH Q8H PRN PRN Reason: Nausea and Vomiting Pantoprazole Sodium (Pantoprazole Sodium 40 Mg/10 Ml Vial) 40 mg IVPUSH DAILY@0630 [facility] Last Admin: 03/15/25 06:14 Dose: 40 mg Sodium Chloride (0.9 % Sodium Chloride Flush 3 Ml Syringe) 3 ml IVFLUSH HIFT [facility] Last Admin: 03/15/25 06:53 Dose: Not Given Home Medications ?Medication ?Instructions ?Recorded ?Confirmed ?Last Taken ?Type acetaminophen 325 mg tablet 650 mg PO Q4H PRN Pain 03/15/25 03/15/25 03/13/25 History amlodipine 5 mg tablet 5 mg PO DAILY 03/15/25 03/15/25 03/14/25 History apixaban 5 mg tablet (Eliquis) 5 mg PO BID 03/15/25 03/15/25 03/14/25 History atorvastatin 20 mg tablet 20 mg PO BEDTIME 03/15/25 03/15/25 03/13/25 History furosemide 20 mg tablet 20 mg PO BID 03/15/25 03/15/25 03/14/25 History losartan 25 mg tablet 25 mg PO DAILY 03/15/25 03/15/25 03/14/25 History ondansetron HCl 4 mg tablet 4 mg PO Q8H PRN Nausea And Vomiting 03/15/25 03/15/25 03/08/25 History polyethylene glycol 3350 17 17 g PO DAILY PRN Constipation 03/15/25 03/15/25 Unknown History gram/dose oral powder potassium chloride 20 mEq 20 meq PO DAILY 03/15/25 03/15/25 03/14/25 History tablet,extended release(part/cryst) simethicone 80 mg chewable tablet 80 mg PO BID PRN Abdominal 03/15/25 03/15/25 03/14/25 History Distention tamsulosin 0.4 mg capsule 0.4 mg PO BEDTIME 03/15/25 03/15/25 03/13/25 History Exam Height,Weight and Vital Signs: Height 5 ft 7 in Weight 63.6 kg Last Vital Signs Temp 97.3 F 03/15/25 10:17 Pulse 123 H 03/15/25 10:17 Resp 20 03/15/25 10:17 BP 120/83 03/15/25 10:17 Pulse Ox 93 03/15/25 10:17 O2 Del Method Nasal Cannula 03/15/25 10:17 O2 Flow Rate 4 03/15/25 10:17 Pertinent Lab Results Pertinent Lab Results: Laboratory Tests 03/14/25 03/14/25 03/14/25 15:50 15:55 16:50 WBC 21.2 H RBC 4.82 D Hgb 12.2 L D Hct 38.6 L D MCV 80.1 MCH 25.3 L MCHC 31.6 RDW 16.3 H Plt Count 346 D MPV 9.9 Immature Gran % (Auto) 0.7 H Neut % (Auto) 83.1 H Lymph % (Auto) 12.5 L [place] % (Auto) 3.5 Eos % (Auto) 0.0 Baso % (Auto) 0.2 Lymph # (Auto) 2.7 [place] # (Auto) 0.8 Eos # (Auto) 0.0 Baso # (Auto) 0.0 Abs Immat Gran (auto) 0.15 H Absolute Neuts (auto) 17.6 H Absolute Nucleated RBC 0.000 Nucleated RBC % (auto) 0.0 Neutrophils % (Manual) Band Neutrophils % Lymphocytes % (Manual) Atypical Lymphs % (Man) Monocytes % (Manual) Abs Neuts (Manual) Lymphocytes # (Manual) Atyp Lymphs # (Manual) Monocytes # (Manual) Toxic Vacuolation Platelet Estimate Large Platelets Plt Morphology Comment RBC Morphology Patrice Cells Hold Purple Top SEE NOTE PT 30.6 H INR 2.6 H APTT Sodium 137 Potassium 5.1 D Chloride 101 Carbon Dioxide 24 Anion Gap 17 BUN 47 H Creatinine 1.39 Estim Creat Clear Calc 33.0 Estimated GFR 48 Random Glucose 203 H Lactic Acid 4.1 H* Lactic Acid F/U @ 2Hr Lactic Acid F/U @ 4Hr Calcium 9.8 D Phosphorus Magnesium 1.9 Total Bilirubin 0.7 AST 17 ALT 16 Alkaline Phosphatase 69 Troponin I High Sens 8.3 Total Protein 6.8 Albumin 3.7 Urine Color Urine Appearance Urine pH Ur Specific [place] Urine Protein Urine Glucose (UA) Urine Ketones Urine Blood Urine Nitrite Ur Leukocyte Esterase Urine RBC Urine WBC Ur Squamous Epith Cells Urine Bacteria Hyaline Casts COVID-19 (ISABELA) Negative COVID-19 Clin Com See Note Influenza Type A (BETTIE) Negative Influenza Type B (BETTIE) Negative Influenza A & B Note See Note Blood Type Antibody Screen 03/14/25 03/14/25 03/14/25 17:53 18:16 21:15 WBC RBC Hgb Hct MCV MCH MCHC RDW Plt Count MPV Immature Gran % (Auto) Neut % (Auto) Lymph % (Auto) [place] % (Auto) Eos % (Auto) Baso % (Auto) Lymph # (Auto) [place] # (Auto) Eos # (Auto) Baso # (Auto) Abs Immat Gran (auto) Absolute Neuts (auto) Absolute Nucleated RBC Nucleated RBC % (auto) Neutrophils % (Manual) Band Neutrophils % Lymphocytes % (Manual) Atypical Lymphs % (Man) Monocytes % (Manual) Abs Neuts (Manual) Lymphocytes # (Manual) Atyp Lymphs # (Manual) Monocytes # (Manual) Toxic Vacuolation Platelet Estimate Large Platelets Plt Morphology Comment RBC Morphology [place] Cells Hold Purple Top PT INR APTT Sodium Potassium Chloride Carbon Dioxide Anion Gap BUN Creatinine Estim Creat Clear Calc Estimated GFR Random Glucose Lactic Acid Lactic Acid F/U @ 2Hr 2.7 H* Lactic Acid F/U @ 4Hr 2.6 H* Calcium Phosphorus Magnesium Total Bilirubin AST ALT Alkaline Phosphatase Troponin I High Sens Total Protein Albumin Urine Color Yellow Urine Appearance Clear Urine pH 5.0 Ur Specific [place] 1.020 Urine Protein Negative Urine Glucose (UA) Negative Urine Ketones Negative Urine Blood Negative Urine Nitrite Negative Ur Leukocyte Esterase Moderate (2+) H Urine RBC 0-2 Urine WBC 21-50 H Ur Squamous Epith Cells 3-5 Urine Bacteria 4+ Hyaline Casts 6-10 COVID-19 (ISABELA) COVID-19 Clin Com Influenza Type A (BETTIE) Influenza Type B (BETTIE) Influenza A & B Note Blood Type Antibody Screen 03/14/25 03/15/25 03/15/25 22:59 01:20 05:04 WBC 14.5 H RBC 4.13 L Hgb 10.5 L Hct 32.2 L MCV 78.0 L MCH 25.4 L MCHC 32.6 RDW 16.3 H Plt Count 275 MPV 9.7 Immature Gran % (Auto) Cancelled Neut % (Auto) Cancelled Lymph % (Auto) Cancelled [place] % (Auto) Cancelled Eos % (Auto) Cancelled Baso % (Auto) Cancelled Lymph # (Auto) Cancelled [place] # (Auto) Cancelled Eos # (Auto) Cancelled Baso # (Auto) Cancelled Abs Immat Gran (auto) Cancelled Absolute Neuts (auto) Cancelled Absolute Nucleated RBC 0.000 Nucleated RBC % (auto) 0.0 Neutrophils % (Manual) 70 Band Neutrophils % 15 H Lymphocytes % (Manual) 13 L Atypical Lymphs % (Man) 1 Monocytes % (Manual) 1 L Abs Neuts (Manual) 12.3 H Lymphocytes # (Manual) 1.9 Atyp Lymphs # (Manual) 0.1 Monocytes # (Manual) 0.1 Toxic Vacuolation PRESENT Platelet Estimate NORMAL Large Platelets PRESENT Plt Morphology Comment NOTED RBC Morphology NOTED [place] Cells 3+ (>5) Hold Purple Top PT 29.8 H INR 2.5 H APTT Sodium 136 Potassium 5.3 H Chloride 106 Carbon Dioxide 21 L Anion Gap 14 BUN 42 H Creatinine 1.19 Estim Creat Clear Calc 38.5 Estimated GFR 58 Random Glucose 142 H Lactic Acid 1.9 Lactic Acid F/U @ 2Hr Lactic Acid F/U @ 4Hr Calcium 8.6 D Phosphorus 3.8 Magnesium 1.6 Total Bilirubin AST ALT Alkaline Phosphatase Troponin I High Sens Total Protein Albumin Urine Color Urine Appearance Urine pH Ur Specific [place] Urine Protein Urine Glucose (UA) Urine Ketones Urine Blood Urine Nitrite Ur Leukocyte Esterase Urine RBC Urine WBC Ur Squamous Epith Cells Urine Bacteria Hyaline Casts COVID-19 (ISABELA) COVID-19 Clin Com Influenza Type A (BETTIE) Influenza Type B (BETTIE) Influenza A & B Note Blood Type O Positive Antibody Screen NEGATIVE 03/15/25 11:09 WBC 17.7 H RBC 4.45 L Hgb 11.2 L Hct 35.2 L MCV 79.1 L MCH 25.2 L MCHC 31.8 RDW 16.7 H Plt Count 311 MPV 9.1 L Immature Gran % (Auto) Cancelled Neut % (Auto) Cancelled Lymph % (Auto) Cancelled [place] % (Auto) Cancelled Eos % (Auto) Cancelled Baso % (Auto) Cancelled Lymph # (Auto) Cancelled [place] # (Auto) Cancelled Eos # (Auto) Cancelled Baso # (Auto) Cancelled Abs Immat Gran (auto) Cancelled Absolute Neuts (auto) Cancelled Absolute Nucleated RBC 0.000 Nucleated RBC % (auto) 0.0 Neutrophils % (Manual) Band Neutrophils % Lymphocytes % (Manual) Atypical Lymphs % (Man) Monocytes % (Manual) Abs Neuts (Manual) Lymphocytes # (Manual) Atyp Lymphs # (Manual) Monocytes # (Manual) Toxic Vacuolation Platelet Estimate Large Platelets Plt Morphology Comment RBC Morphology [place] Cells Hold Purple Top PT 22.2 H D INR 1.8 H APTT 33.6 Sodium 137 Potassium 5.0 Chloride 107 Carbon Dioxide 20 L Anion Gap 15 BUN 40 H Creatinine 1.23 Estim Creat Clear Calc 37.3 Estimated GFR 56 Random Glucose 130 H Lactic Acid Lactic Acid F/U @ 2Hr Lactic Acid F/U @ 4Hr Calcium 9.0 Phosphorus Magnesium Total Bilirubin AST ALT Alkaline Phosphatase Troponin I High Sens Total Protein Albumin Urine Color Urine Appearance Urine pH Ur Specific [place] Urine Protein Urine Glucose (UA) Urine Ketones Urine Blood Urine Nitrite Ur Leukocyte Esterase Urine RBC Urine WBC Ur Squamous Epith Cells Urine Bacteria Hyaline Casts COVID-19 (ISABELA) COVID-19 Clin Com Influenza Type A (BETTIE) Influenza Type B (BETTIE) Influenza A & B Note Blood Type Antibody Screen Narrative Narrative: EKG 03/14/25 Vent. Rate : 114 BPM Atrial Rate : * BPM P-R Int : * ms QRS Dur : 120 ms QT Int : 304 ms P-R-T Axes : * 56 13 degrees QTcB Int : 419 ms Atrial fibrillation with rapid ventricular response Right bundle branch block Abnormal ECG When compared with ECG of 14-Mar-2025 15:11, No significant change was found ECHO 2020 The left ventricular size is normal. Left ventricular wall thickness is normal. The LV systolic function is normal. The LVEF 60-65%. No obvious wall motion seen on limited views. Grade II moderate diastolic dysfunction with pseudonormal LV filling pattern and increased LA pressure. Aortic valce appears moderately calcified. Aortic valved is probably trileaflet. The left coronary cusp appears to be restricted. There is no significant aortic stenosis. There is trace aortic regurgitation. The right ventricle is normal in size. Right ventricular systolic function appears preserved. There is mild pulmonary HTN. The left atrium is severely dilated. Documented by User: Melita Kaiser MD 03/15/25 12:36 [facility] Past Medical History Medical History (Updated 03/14/25 @ 22:58 by Heather Fatima MD) BPH (benign prostatic hyperplasia) HLD (hyperlipidemia) CHF (congestive heart failure) HTN (hypertension) A-fib Dementia Family History Family history of problems with anesthesia: No Surgical History History of Problems with Anesthesia: No Social History Social History Patient Tobacco Use Status: Former Tobacco user Smoked in Last 30 Days: No Use of substances other than those prescribed or required for medical reasons: No Are you DNR?: Yes Advance Directives: No Advance Directives Information Provided: No Do you have a plan to hurt others: No Plan service: No Meds Allergies Allergy/AdvReac Type Severity Reaction Status Date / Time No Known Allergies Allergy Verified 03/14/25 15:10 Home Medications ?Medication ?Instructions ?Recorded ?Confirmed ?Last Taken ?Type acetaminophen 325 mg tablet 650 mg PO Q4H PRN Pain 03/15/25 03/15/25 03/13/25 History amlodipine 5 mg tablet 5 mg PO DAILY 03/15/25 03/15/25 03/14/25 History apixaban 5 mg tablet (Eliquis) 5 mg PO BID 03/15/25 03/15/25 03/14/25 History atorvastatin 20 mg tablet 20 mg PO BEDTIME 03/15/25 03/15/25 03/13/25 History furosemide 20 mg tablet 20 mg PO BID 03/15/25 03/15/25 03/14/25 History losartan 25 mg tablet 25 mg PO DAILY 03/15/25 03/15/25 03/14/25 History ondansetron HCl 4 mg tablet 4 mg PO Q8H PRN Nausea And Vomiting 03/15/25 03/15/25 03/08/25 History polyethylene glycol 3350 17 17 g PO DAILY PRN Constipation 03/15/25 03/15/25 Unknown History gram/dose oral powder potassium chloride 20 mEq 20 meq PO DAILY 03/15/25 03/15/25 03/14/25 History tablet,extended release(part/cryst) simethicone 80 mg chewable tablet 80 mg PO BID PRN Abdominal 03/15/25 03/15/25 03/14/25 History Distention tamsulosin 0.4 mg capsule 0.4 mg PO BEDTIME 03/15/25 03/15/25 03/13/25 History Exam Airway Mallampati Class: I TM Dist: >3cm Neck ROM: Full Denture: Upper and Lower Heart: irreg Lungs: cta Assessment and Plan Assessment Anesthesia Assessment: Anesthesia Plan Discussed and Chart Reviewed Final Anesthetic Review Family History of Problems with Anesthesia: No History of Problems with Anesthesia: No NPO: Yes ASA Class: IV and Emergency Final Preanesthetic Review: No Changes in Pt Med Stat, Meds/Allgs Chart Reviewed and Consent Obtained/Reviewed Patient Risk: Intermediate Procedure Risk: Intermediate Anesthetic Plan Anesthetic Plan: GA Disposition: Standard PACU
--- NOTE | 2025-03-15 12:17 | MHC.CM.PN ---
CM attempted to meet with Patient at bedside, in the ED but he appeared confused and unable to respond appropriately to questions. CM attempted to call /Juliet but the # listed is incorrect. CM attempted to meet with in ED 14 but Patient had gone to the OR and has left, per RN. CM will mail Patient's IMM to his , via certified mail and a copy will be placed on the chart. Patient appears to be from LTC @ [facility] and returning there at dc is tentative plan. CM has initiated and will follow for dc planning.
[2025-03-15 12:21] LABS: Band Neutrophils Percent 8 % (3-5); Lymphocytes Absolute Manual 1.1 X10*3/uL (1.2-4.9); Lymphocytes Percent Manual 6 % (20-40); Monocytes Absolute Manual 0.4 X10*3/uL (0.1-1.2); Monocytes Percent Manual 2 % (2-11); Neutrophils Absolute Manual 16.3 X10*3/uL (2.0-8.3); Neutrophils Percent Manual 84 % (45-73)
[2025-03-15 12:28] LABS: Acanthocytes 1+ (0-2) /OIF; Burr Cells 2+ (3-5) /OIF; RBC Morphology NOTED
[2025-03-15 12:29] LABS: Toxic Vacuolation PRESENT
--- NOTE | 2025-03-15 13:13 | PC.NURSE ---
Kemi Ochoa (daughter) [phone] Nicki Wilde (daughter) [phone]
[2025-03-16] VITALS (9 sets, daily range): BP systolic 111–137; BP diastolic 58–71; PULSE 79–122; RESP 16–20; TEMP 36.2–36.8; O2SAT 93–97
[2025-03-16 07:28] LABS: Hematocrit 29.0 % (42.0-52.0); Hemoglobin 9.1 g/dl (14.0-18.0); Mean Corpuscular HGB Conc 31.4 g/dl (31.0-36.0); Mean Corpuscular Hemoglobin 25.1 pg (27.0-33.0); Mean Corpuscular Volume 79.9 fL (80.0-98.0); NRBC Abs Auto 0.000 X10*3/uL (0.0-0.012); NRBC Pct Auto 0.0 /100WBC (0.0-0.2); Platelet Count 277 X10*3/uL (160-400); Red Blood Count 3.63 X10*6/uL (4.60-5.80); White Blood Count 13.6 X10*3/uL (4.8-10.8)
[2025-03-16 07:43] LABS: Anion Gap 14 (12-20); Blood Urea Nitrogen 49 mg/dL (9-16); Calcium 8.2 mg/dL (8.4-10.2); Carbon Dioxide 21 mmol/L (22-29); Chloride 106 mmol/L (96-108); Creatinine Clr Calc Pharmacy 30.7; Estimated Glomerular Filt Rate 43; Potassium 5.0 mmol/L (3.3-5.1); Sodium 136 mmol/L (135-145)
[2025-03-16] MEDS: 0.9 % Sodium Chloride Flush 3 ML SYRINGE IVFLUSH ×2 (08:17→20:23)
--- NOTE | 2025-03-16 08:53 | P.PNIM_ITS ---
Subjective Subjective Date of Service: 03/16/25 Interval History: Patient was operated on yesterday, had colectomy and found to have peritonitis He's confused this morning, and has RIOS, HR a bit on high side at 110, blood pressure is borderline Physical Exam 2 Vital Signs: Vital Signs: Last Vital Signs Temp 97.2 F 03/16/25 07:17 Pulse 110 H 03/16/25 07:17 Resp 20 03/16/25 07:17 BP 111/58 L 03/16/25 07:17 Pulse Ox 95 03/16/25 07:17 O2 Del Method Nasal Cannula 03/16/25 07:17 O2 Flow Rate 2 03/16/25 07:17 BMI result Body Mass Index 23.4 Const: Other: General: awake, alert but confused. Resp: CTA bilateral CVS: S1,S iregular iregular GI:soft, has colostomy bag, and ALVIN drain with serosanguinous Skin: No rash Neuro: motor grossly intact Psych: appropriate affect Objective Data Active Medications Piperacillin Sod/Tazobactam (Sod 3.375 gm/ Sodium Chloride) 50 mls @ 100 mls/hr IV RQ6H [facility] Last Infusion: 03/16/25 06:16 Dose: Infused Documented By: RAIZA Acetaminophen (Ofirmev) 1,000 mg in 100 mls @ 400 mls/hr IV Q6H [facility] Stop: 03/17/25 20:59 Last Infusion: 03/16/25 08:40 Dose: Infused Documented By: ADILENE Lactated Ringer's (Lr) 1,000 mls @ 100 mls/hr IVCONT .Q10H [facility] Morphine Sulfate (Morphine Sulfate 4 Mg/Ml Cartridge) 2 mg IVPUSH RQ4H PRN; Protocol PRN Reason: Pain, Moderate(Pain Scale 4-6) Last Admin: 03/15/25 17:36 Dose: 2 mg Documented By: MANJUCINURIA Morphine Sulfate (Morphine Sulfate 4 Mg/Ml Cartridge) 3 mg IVPUSH Q3H PRN; Protocol PRN Reason: Pain, Severe (Pain Scale 7-10) Ondansetron HCl (Ondansetron Hcl 4 Mg/2 Ml Vial) 4 mg IVPUSH Q8H PRN PRN Reason: Nausea and Vomiting Pantoprazole Sodium (Pantoprazole Sodium 40 Mg/10 Ml Vial) 40 mg IVPUSH DAILY@0630 [facility] Last Admin: 03/16/25 05:46 Dose: 40 mg Documented By: RAIZA Sodium Chloride (0.9 % Sodium Chloride Flush 3 Ml Syringe) 3 ml IVFLUSH QSHIFT [facility] Last Admin: 03/16/25 08:17 Dose: 3 ml Documented By: ADILENE Tamsulosin HCl (Tamsulosin Hcl 0.4 Mg Capsule) 0.4 mg PO BEDTIME [facility] Last Admin: 03/15/25 21:01 Dose: Not Given Documented By: RAIZA Non-Admin Reason: NPO Labs 03/16/25 06:59 03/16/25 06:59 Labs: Laboratory Results - last 24 hr 03/15/25 03/16/25 11:09 06:59 MCV 79.1 L 79.9 L MCH 25.2 L 25.1 L MCHC 31.8 31.4 RDW 16.7 H 16.2 H Plt Count 311 277 MPV 9.1 L 9.6 Immature Gran % (Auto) Cancelled Neut % (Auto) Cancelled Lymph % (Auto) Cancelled [place] % (Auto) Cancelled Eos % (Auto) Cancelled Baso % (Auto) Cancelled Lymph # (Auto) Cancelled [place] # (Auto) Cancelled Eos # (Auto) Cancelled Baso # (Auto) Cancelled Abs Immat Gran (auto) Cancelled Absolute Neuts (auto) Cancelled Absolute Nucleated RBC 0.000 0.000 Nucleated RBC % (auto) 0.0 0.0 Neutrophils % (Manual) 84 H Band Neutrophils % 8 H Lymphocytes % (Manual) 6 L Monocytes % (Manual) 2 Abs Neuts (Manual) 16.3 H Lymphocytes # (Manual) 1.1 L Monocytes # (Manual) 0.4 Toxic Vacuolation PRESENT Platelet Estimate NORMAL Plt Morphology Comment NORMAL RBC Morphology NOTED [place]rice Cells 2+ (3-5) Acanthocytes (Spur) 1+ (0-2) PT 22.2 H D INR 1.8 H APTT 33.6 Anion Gap 15 14 Estim Creat Clear Calc 37.3 30.7 Estimated GFR 56 43 Random Glucose 130 H 124 H Calcium 9.0 8.2 L D Microbiology Microbiology Results: Microbiology 03/14/25 15:50 Blood Culture - Preliminary Blood - Venous Prelim: GNR Gram Stain only 03/14/25 15:54 Blood Culture - Preliminary Blood - Venous No growth after 24 hours. 03/14/25 21:15 Urine Culture - Preliminary Urine clean catch - Clean Catch Midstream No growth to date. Assessment and Plan (1) Severe sepsis: Status: Acute (2) Small bowel perforation: Status: Acute (3) RIOS (acute kidney injury): Status: Acute Plan 89 yo male from [facility] with a pmhx significant for dementia, a fib on eliquis, HTN, CHF, HLD and BPH, who presented to the ED due to abd pain and chest pain x4 hours and found to have perforated viscus complicated by severe sepsis Perforated viscus with Severe sepsis peritonitis' s/p ex-lap, colectomy and colostomy on 03/15 Continue IV Zosyn, IVF, WBC going down Diet per surgery Pain medication. RIOS, suspect ATN from sepsis IVF, avoid nephrotoxin and follow renal function closely Delirium--likely multifactorial d/t sepsis, RIOS, anesthetics monitor closely, presntly has sitter Acute lactic acidosis, secondary to severe sepsis lactic trended down 4.1-->2.7 IVF UTI zosyn as above follow urine culture a fib with RVR, likely triggered by sepsis May use metoprol IV if not able to take oral meds resume eliquis when ok with surgery, probably tomorrow HFpEF, no acute exacerbation Hold diruretics, monitor closely while on IVF HLD resume statin after surgery BPH hold flomax due tohypotension resume when stable after surgery DVT prophylaxis: compression device DNR/DNI Prognosis guarded Quality Stroke Does the patient have a stroke diagnosis?: No VTE Prior VTE?: No VTE Risk Level:: Surgical - low VTE Device Contraindication: N/A - Device Ordered VTE Drug Contraindication: Treatment Not Indicated
--- NOTE | 2025-03-16 09:08 | P.PNGS_ITS ---
Subjective Subjective Date of Service: 03/16/25 Interval history: Patient is seen this morning talking little confused but able to say that he is not having too much pain. Physical Exam 2 Vital Signs: Vital Signs: Last Vital Signs Temp 97.2 F 03/16/25 07:17 Pulse 110 H 03/16/25 07:17 Resp 20 03/16/25 07:17 BP 111/58 L 03/16/25 07:17 Pulse Ox 95 03/16/25 07:17 O2 Del Method Nasal Cannula 03/16/25 07:17 O2 Flow Rate 2 03/16/25 07:17 BMI result Body Mass Index 23.4 Const: General: cooperative and comfortable Resp: Other: Decreased volume with inspiration Effort & Inspection: normal respiratory effort Auscultation: clear to auscultation bilaterally Cardio: Rate: tachycardic Rhythm: abnormal rhythm GI: Other: Abdomen is soft tender around the incision ostomy with a little stool in the bag and some bloody fluid but looks viable and healthy. Psych: Other: Little confused but able to say that he does not have too much pain Objective Data Active Medications Piperacillin Sod/Tazobactam (Sod 3.375 gm/ Sodium Chloride) 50 mls @ 100 mls/hr IV RQ6H [facility] Last Infusion: 03/16/25 06:16 Dose: Infused Documented By: RAIZA Acetaminophen (Ofirmev) 1,000 mg in 100 mls @ 400 mls/hr IV Q6H [facility] Stop: 03/17/25 20:59 Last Infusion: 03/16/25 08:40 Dose: Infused Documented By: ADILENE Lactated Ringer's (Lr) 1,000 mls @ 100 mls/hr IVCONT .Q10H [facility] Morphine Sulfate (Morphine Sulfate 4 Mg/Ml Cartridge) 2 mg IVPUSH RQ4H PRN; Protocol PRN Reason: Pain, Moderate(Pain Scale 4-6) Last Admin: 03/15/25 17:36 Dose: 2 mg Documented By: ADILENE Morphine Sulfate (Morphine Sulfate 4 Mg/Ml Cartridge) 3 mg IVPUSH Q3H PRN; Protocol PRN Reason: Pain, Severe (Pain Scale 7-10) Ondansetron HCl (Ondansetron Hcl 4 Mg/2 Ml Vial) 4 mg IVPUSH Q8H PRN PRN Reason: Nausea and Vomiting Pantoprazole Sodium (Pantoprazole Sodium 40 Mg/10 Ml Vial) 40 mg IVPUSH DAILY@0630 [facility] Last Admin: 03/16/25 05:46 Dose: 40 mg Documented By: RAIZA Sodium Chloride (0.9 % Sodium Chloride Flush 3 Ml Syringe) 3 ml IVFLUSH QSHIFT [facility] Last Admin: 03/16/25 08:17 Dose: 3 ml Documented By: ADILENE Tamsulosin HCl (Tamsulosin Hcl 0.4 Mg Capsule) 0.4 mg PO BEDTIME [facility] Last Admin: 03/15/25 21:01 Dose: Not Given Documented By: RAIZA Non-Admin Reason: NPO Labs 03/16/25 06:59 03/16/25 06:59 Labs: Laboratory Results - last 24 hr 03/15/25 03/16/25 11:09 06:59 MCV 79.1 L 79.9 L MCH 25.2 L 25.1 L MCHC 31.8 31.4 RDW 16.7 H 16.2 H Plt Count 311 277 MPV 9.1 L 9.6 Immature Gran % (Auto) Cancelled Neut % (Auto) Cancelled Lymph % (Auto) Cancelled Crosby % (Auto) Cancelled Eos % (Auto) Cancelled Baso % (Auto) Cancelled Lymph # (Auto) Cancelled Crosby # (Auto) Cancelled Eos # (Auto) Cancelled Baso # (Auto) Cancelled Abs Immat Gran (auto) Cancelled Absolute Neuts (auto) Cancelled Absolute Nucleated RBC 0.000 0.000 Nucleated RBC % (auto) 0.0 0.0 Neutrophils % (Manual) 84 H Band Neutrophils % 8 H Lymphocytes % (Manual) 6 L Monocytes % (Manual) 2 Abs Neuts (Manual) 16.3 H Lymphocytes # (Manual) 1.1 L Monocytes # (Manual) 0.4 Toxic Vacuolation PRESENT Platelet Estimate NORMAL Plt Morphology Comment NORMAL RBC Morphology NOTED Eola Cells 2+ (3-5) Acanthocytes (Spur) 1+ (0-2) PT 22.2 H D INR 1.8 H APTT 33.6 Anion Gap 15 14 Estim Creat Clear Calc 37.3 30.7 Estimated GFR 56 43 Random Glucose 130 H 124 H Calcium 9.0 8.2 L D Microbiology Microbiology Results: Microbiology 03/15/25 Unknown Routine Culture - Preliminary Peritoneal Fluid Culture in progress. Anaerobic Culture - Preliminary Culture in progress. 03/14/25 15:50 Blood Culture - Preliminary Blood - Venous Prelim: GNR Gram Stain only 03/14/25 15:54 Blood Culture - Preliminary Blood - Venous No growth after 24 hours. 03/14/25 21:15 Urine Culture - Preliminary Urine clean catch - Clean Catch Midstream No growth to date. Procedures Date of Service Date of Service: 03/16/25 Progress Note: A&P Assessment and plan (1) Bowel perforation: Status: Acute Assessment and Plan: Patient is postop day 1 status post exploratory laparotomy with Clarissa procedure for perforated diverticulitis most likely doing relatively well. White count has come down his vitals have been okay medical team following for AFib and monitoring his fluids. We will plan to continue with the Garg catheter for close ins and outs. Creatinine a little elevated probably secondary to some mild ATN due to his sepsis maybe some mild dehydration. We will try to give him a little more IV fluids and monitor his urine output that being careful with his CHF. In the meantime continue with IV Zosyn for antibiotics we will follow up on cultures done intra-abdominally. Tomorrow can try to get him out of bed incentive spirometer and hold on anticoagulation for now. He is on DVT prophylaxis with compression follow H&H tomorrow. Appreciate medical team following along Time Spent With Patient Time: Total time managing care of this patient today ____ minutes. Quality Stroke Does the patient have a stroke diagnosis?: No VTE Prior VTE?: No VTE Risk Level:: Surgical - low VTE Device Contraindication: N/A - Device Ordered VTE Drug Contraindication: Treatment Not Indicated
--- NOTE | 2025-03-16 09:08 | P.OP_ITS ---
Operative Note Operative Note Date of Service: 03/15/25 Narrative: Preop diagnosis--perforated bowel Postop diagnosis--perforated diverticulitis Procedure--exploratory laparotomy with Clarissa procedure Surgeon--Louise Jewel Supervisor--Dr. Juarez Jewel Supervisor 2- medical student Liliana Patient is a 89-year-old male came in with acute abdominal pain from the [facility] and findings consistent with free air and probable perforation. He had been on Eliquis and received a dose earlier in the day and so we waited for 24 hours and did Kcentra reversal. As a result now he is coming in for exploration Findings--patient with perforated sigmoid colon most likely diverticulitis with a large intra-abdominal abscesses that were drained. Procedure-- Patient was brought to the operative room under anesthesia guidance intubated. He had compression stockings placed before induction received preoperative antibiotics. His abdomen was prepped and draped in standard surgical fashion. He had a Garg catheter already in place. Midline incision was created going down into the inferior umbilical area and dissection carried down with the cautery into the peritoneum. Immediately on entering there was murky fluid and this was culture. In exploring the abdomen the sigmoid colon was noted to be thickened indurated and anteriorly along the mid sigmoid there was a hole with spillage of material. In the process of manipulating things we entered the large abscess anteriorly and laterally and 1 also medially to the bowel perforated sigmoid. With the lateral line of Toldt was mobilized with the LigaSure and cautery and we got to a point where distal sigmoid heading towards the rectum was soft and more normal in appearance. Hole was made through the mesentery and the CHRISTOFER stapler was fired across the distal margin. Going proximally we found an area of the descending colon upper sigmoid which looked healthier and this area was transected with a CHRISTOFER stapler. The LigaSure was used to come across the mesentery and remove the segment of colon. There was a bleeding area that was suture ligated as well. With the colon now remove the abscess areas were opened up and about 7 L of warm irrigation was carried out. Irrigation was carried out in the upper abdominal quadrants as well as the lower quadrants such that there was no more murky fluid or any free stool or pus. The descending colon was then brought out through colostomy site in the of the left midabdomen and the abdominal cavity was irrigated with Aricept. This was left in place and 0 PDS was used to close the fascia superiorly inferiorly. Loose nick approximated the skin edges and in between there was packing with iodoform gauze. Attention was focused to the ostomy which was now matured with 3-0 Polysorb. Colostomy bag secured. At the end of the case all sponge instrument needle counts were correct estimated blood loss was about 100 cc specimens sent was the sigmoid colon patient made 30 cc of urine during the case. At the end the patient was extubated and did well and sent to recovery. Please see anesthesia records for further details
[2025-03-16] MEDS: Lactated Ringers 1,000 ML 100 ML IVCONT ×2 (10:23→20:21)
[2025-03-17] VITALS (10 sets, daily range): BP systolic 117–160; BP diastolic 62–77; PULSE 67–127; RESP 18–20; TEMP 36.2–36.9; O2SAT 90–95
[2025-03-17] MEDS: Lactated Ringers 1,000 ML 100 ML IVCONT ×2 (06:12→15:38)
[2025-03-17 07:42] LABS: Hematocrit 27.0 % (42.0-52.0); Hemoglobin 8.4 g/dl (14.0-18.0); Mean Corpuscular HGB Conc 31.1 g/dl (31.0-36.0); Mean Corpuscular Hemoglobin 24.6 pg (27.0-33.0); Mean Corpuscular Volume 79.2 fL (80.0-98.0); NRBC Abs Auto 0.000 X10*3/uL (0.0-0.012); NRBC Pct Auto 0.0 /100WBC (0.0-0.2); Platelet Count 328 X10*3/uL (160-400); Red Blood Count 3.41 X10*6/uL (4.60-5.80); White Blood Count 16.5 X10*3/uL (4.8-10.8)
[2025-03-17 08:13] LABS: Blood Urea Nitrogen 44 mg/dL (9-16); Calcium 8.6 mg/dL (8.4-10.2); Creatinine Clr Calc Pharmacy 37.8; Estimated Glomerular Filt Rate 54
[2025-03-17 08:37] LABS: Anion Gap 13 (12-20); Carbon Dioxide 24 mmol/L (22-29); Chloride 108 mmol/L (96-108); Potassium 3.9 mmol/L (3.3-5.1); Sodium 141 mmol/L (135-145)
[2025-03-17] MEDS: 0.9 % Sodium Chloride Flush 3 ML SYRINGE IVFLUSH (08:59)
--- NOTE | 2025-03-17 12:20 | HO.PM.IMPN ---
Subjective Subjective Date of Service: 03/17/25 Interval History: He is restless, less confused than yesterday, orieted to self, place WBC remains high, no fever H/H is slightly low Cr is better, no bm or flatus reported Physical Exam Vital Signs: Vital Signs: Last Vital Signs Temp 97.2 F 03/17/25 11:19 Pulse 109 H 03/17/25 11:19 Resp 20 03/17/25 11:19 BP 134/62 03/17/25 11:19 Pulse Ox 90 L 03/17/25 11:19 O2 Del Method Room Air 03/17/25 11:19 O2 Flow Rate 2 03/17/25 03:46 BMI result Body Mass Index 23.4 Const: Other: General: awake, alert but confused, speech is mumble, mouth dry Resp: CTA bilateral CVS: S1,S iregular iregular GI:mild distention, no bs has colostomy bag, and ALVIN drain with serosanguinous Skin: No rash Neuro: motor grossly intact Psych: appropriate affect Objective Data Active Medications Lactated Ringer's (Lr) 1,000 mls @ 100 mls/hr IVCONT .Q10H [facility] Last Admin: 03/17/25 06:12 Dose: 100 mls/hr Documented By: RAIZA Piperacillin Sod/Tazobactam (Sod 3.375 gm/ Sodium Chloride) 50 mls @ 100 mls/hr IV Q6H [facility] Last Infusion: 03/17/25 07:03 Dose: Infused Documented By: RAIZA Acetaminophen (Ofirmev) 1,000 mg in 100 mls @ 400 mls/hr IV Q6H PRN PRN Reason: Pain, Moderate(Pain Scale 4-6) Stop: 03/17/25 20:59 Last Infusion: 03/17/25 09:26 Dose: Infused Documented By: ADILENE Metoprolol Tartrate (Metoprolol Tartrate 5 Mg/5 Ml Vial) 2.5 mg IVPUSH Q6H PRN; Protocol PRN Reason: HR > 110 Last Admin: 03/17/25 08:50 Dose: 2.5 mg Documented By: ADILENE Morphine Sulfate (Morphine Sulfate 4 Mg/Ml Cartridge) 2 mg IVPUSH RQ4H PRN; Protocol PRN Reason: Pain, Moderate(Pain Scale 4-6) Last Admin: 03/15/25 17:36 Dose: 2 mg Documented By: ADILENE Morphine Sulfate (Morphine Sulfate 4 Mg/Ml Cartridge) 3 mg IVPUSH Q3H PRN; Protocol PRN Reason: Pain, Severe (Pain Scale 7-10) Ondansetron HCl (Ondansetron Hcl 4 Mg/2 Ml Vial) 4 mg IVPUSH Q8H PRN PRN Reason: Nausea and Vomiting Pantoprazole Sodium (Pantoprazole Sodium 40 Mg/10 Ml Vial) 40 mg IVPUSH DAILY@0630 [facility] Last Admin: 03/17/25 06:12 Dose: 40 mg Documented By: RAIZA Sodium Chloride (0.9 % Sodium Chloride Flush 3 Ml Syringe) 3 ml IVFLUSH QSHIFT [facility] Last Admin: 03/17/25 08:59 Dose: 3 ml Documented By: ADILENE Tamsulosin HCl (Tamsulosin Hcl 0.4 Mg Capsule) 0.4 mg PO BEDTIME [facility] Last Admin: 03/16/25 20:23 Dose: Not Given Documented By: RAIZA Non-Admin Reason: NPO Labs 03/18/25 06:51 03/18/25 06:52 Labs: Laboratory Results - last 24 hr 03/17/25 07:04 MCV 79.2 L MCH 24.6 L MCHC 31.1 RDW 16.4 H Plt Count 328 MPV 9.9 Absolute Nucleated RBC 0.000 Nucleated RBC % (auto) 0.0 Anion Gap 13 Estim Creat Clear Calc 37.8 Estimated GFR 54 Random Glucose 89 Calcium 8.6 Microbiology Microbiology Results: Microbiology 03/15/25 Unknown Gram Stain - Final Peritoneal Fluid Routine Culture - Preliminary Gram negative seth Anaerobic Culture - Preliminary Culture in progress. 03/14/25 15:50 Blood Culture - Preliminary Blood - Venous Prelim: GNR Gram Stain only 03/14/25 15:54 Blood Culture - Preliminary Blood - Venous No growth after 48 hours. 03/14/25 21:15 Urine Culture - Final Urine clean catch - Clean Catch Midstream No growth. Assessment and Plan (1) Severe sepsis: Status: Acute (2) Small bowel perforation: Status: Acute (3) RIOS (acute kidney injury): Status: Acute Plan 89 yo male from the [facility] with a pmhx significant for dementia, a fib on eliquis, HTN, CHF, HLD and BPH, who presented to the ED due to abd pain and chest pain x4 hours and found to have perforated viscus complicated by severe sepsis Perforated viscus with Severe sepsis peritonitis' s/p ex-lap, colectomy and colostomy on 03/15 blood culture and peritoneal culture growing GNR, gram stain also showed gram positive cocci in peritoneum Continue IV Zosyn, IVF, WBC going down, add Vanco Diet per surgery Pain medication. Incentive spirometry RIOS, suspect ATN from sepsis, improved IVF, avoid nephrotoxin and follow renal function closely Delirium and metabolic encephalopathy --likely multifactorial d/t sepsis, RIOS, anesthetics monitor closely, presntly has sitter Acute lactic acidosis, secondary to severe sepsis lactic trended down 4.1-->2.7 IVF UTI zosyn as above follow urine culture a fib with RVR, likely triggered by sepsis May use metoprol IV if not able to take oral meds resume eliquis when ok with surgery, probably tomorrow HFpEF, no acute exacerbation Hold diruretics, monitor closely while on IVF HLD resume statin after surgery BPH hold flomax due tohypotension resume when stable after surgery DVT prophylaxis: compression device DNR/DNI Prognosis guarded Quality Stroke Does the patient have a stroke diagnosis?: No VTE Prior VTE?: No VTE Risk Level:: Surgical - low VTE Device Contraindication: N/A - Device Ordered VTE Drug Contraindication: Treatment Not Indicated
--- NOTE | 2025-03-17 15:08 | P.PNGS_ITS ---
Subjective Subjective Date of Service: 03/17/25 Interval history: patient is little more confused and sleepy this afternoon awakens denies any significant abdominal pain. Physical Exam 2 Vital Signs: Vital Signs: Last Vital Signs Temp 97.2 F 03/17/25 11:19 Pulse 109 H 03/17/25 11:19 Resp 20 03/17/25 11:19 BP 134/62 03/17/25 11:19 Pulse Ox 94 03/17/25 12:37 O2 Del Method Nasal Cannula 03/17/25 12:37 O2 Flow Rate 2 03/17/25 12:37 BMI result Body Mass Index 23.4 Const: Other: Sleepy General: confusion Orientation/consciousness: confusion Resp: Auscultation: diminished lung sounds Cardio: Rate: tachycardic Rhythm: abnormal rhythm GI: Other: abdomen is soft active bowel sounds there some bloody fluid and some stool in the ostomy bag not much gas. Incisions are okay. Neuro: General: confusion Objective Data Active Medications Lactated Ringer's (Lr) 1,000 mls @ 100 mls/hr IVCONT .Q10H [facility] Last Admin: 03/17/25 06:12 Dose: 100 mls/hr Documented By: RAIZA Piperacillin Sod/Tazobactam (Sod 3.375 gm/ Sodium Chloride) 50 mls @ 100 mls/hr IV Q6H [facility] Last Infusion: 03/17/25 13:02 Dose: Infused Documented By: ADILENE Acetaminophen (Ofirmev) 1,000 mg in 100 mls @ 400 mls/hr IV Q6H PRN PRN Reason: Pain, Moderate(Pain Scale 4-6) Stop: 03/17/25 20:59 Last Infusion: 03/17/25 09:26 Dose: Infused Documented By: ADILENE Metoprolol Tartrate (Metoprolol Tartrate 5 Mg/5 Ml Vial) 2.5 mg IVPUSH Q6H PRN; Protocol PRN Reason: HR > 110 Last Admin: 03/17/25 08:50 Dose: 2.5 mg Documented By: ADILENE Morphine Sulfate (Morphine Sulfate 4 Mg/Ml Cartridge) 2 mg IVPUSH RQ4H PRN; Protocol PRN Reason: Pain, Moderate(Pain Scale 4-6) Last Admin: 03/15/25 17:36 Dose: 2 mg Documented By: ADILENE Morphine Sulfate (Morphine Sulfate 4 Mg/Ml Cartridge) 3 mg IVPUSH Q3H PRN; Protocol PRN Reason: Pain, Severe (Pain Scale 7-10) Ondansetron HCl (Ondansetron Hcl 4 Mg/2 Ml Vial) 4 mg IVPUSH Q8H PRN PRN Reason: Nausea and Vomiting Pantoprazole Sodium (Pantoprazole Sodium 40 Mg/10 Ml Vial) 40 mg IVPUSH DAILY@0630 [facility] Last Admin: 03/17/25 06:12 Dose: 40 mg Documented By: RAIZA Sodium Chloride (0.9 % Sodium Chloride Flush 3 Ml Syringe) 3 ml IVFLUSH QSHIFT [facility] Last Admin: 03/17/25 08:59 Dose: 3 ml Documented By: ADILENE Tamsulosin HCl (Tamsulosin Hcl 0.4 Mg Capsule) 0.4 mg PO BEDTIME [facility] Last Admin: 03/16/25 20:23 Dose: Not Given Documented By: RAIZA Non-Admin Reason: NPO Labs 03/17/25 07:04 03/17/25 07:04 Labs: Laboratory Results - last 24 hr 03/17/25 03/17/25 07:04 13:33 MCV 79.2 L MCH 24.6 L MCHC 31.1 RDW 16.4 H Plt Count 328 MPV 9.9 Absolute Nucleated RBC 0.000 Nucleated RBC % (auto) 0.0 Anion Gap 13 Estim Creat Clear Calc 37.8 Estimated GFR 54 Random Glucose 89 Calcium 8.6 Blood Type O Positive Antibody Screen NEGATIVE Microbiology Microbiology Results: Microbiology 03/15/25 Unknown Gram Stain - Final Peritoneal Fluid Routine Culture - Preliminary Gram negative seth Anaerobic Culture - Preliminary Culture in progress. 03/14/25 15:50 Blood Culture - Preliminary Blood - Venous Prelim: GNR Gram Stain only 03/14/25 15:54 Blood Culture - Preliminary Blood - Venous No growth after 48 hours. 03/14/25 21:15 Urine Culture - Final Urine clean catch - Clean Catch Midstream No growth. Procedures Date of Service Date of Service: 03/17/25 Progress Note: A&P Assessment and plan (1) Bowel perforation: Status: Acute Assessment and Plan: patient is postop day 2 status post Clarissa procedure for perforated sigmoid colon most likely from diverticulitis doing okay. Patient's mental status waxes and wanes but his creatinine is improving his labs look okay other than as white count that is gone up a little bit. His H&H is little more decreased and anticoagulation has been held but he is on compression socks. Neuro-- a little confused but some of this is to be expected. IV pain meds as needed respiratory- doing well on room air cardiac-- stable AFib medical team following. Sometimes with a little increasing tachycardia but holding blood pressure GI- expected ileus continues on NPO with just some sips of liquids and IV ppi - continue with Garg catheter for strict ins and outs FEN- continue with IV fluids following electrolytes when patient is more awake and went passing some more gas into the ostomy bag can advance diet. If it seems like there will be a prolonged ileus thinking consider getting a PICC line and IV TPN Heme- hold on Eliquis and anticoagulation for right now follow trending hematocrit may need transfusion there is no obvious sign of any acute bleeding the ostomy or ALVIN drain ID- continue on IV Zosyn follow up for peritoneal cultures Appreciate med team following Time Spent With Patient Time: Total time managing care of this patient today ____ minutes. Quality Stroke Does the patient have a stroke diagnosis?: No VTE Prior VTE?: No VTE Risk Level:: Surgical - low VTE Device Contraindication: N/A - Device Ordered VTE Drug Contraindication: Treatment Not Indicated
--- NOTE | 2025-03-17 23:35 | PC.NURSE ---
LE regarding 03/15/2025 @0017 Morphine 2mg was given for c/o &/10 pain due to his hypotension. Provider aware of the 2mg dose being given at time of med administration
[2025-03-18] VITALS (7 sets, daily range): BP systolic 124–158; BP diastolic 60–68; PULSE 75–117; RESP 18–20; TEMP 36.5–37.3; O2SAT 90–95
[2025-03-18] MEDS: Lactated Ringers 1,000 ML 100 ML IVCONT ×2 (01:01→14:46)
[2025-03-18] MEDS: 0.9 % Sodium Chloride Flush 3 ML SYRINGE IVFLUSH ×3 (01:01→22:36)
[2025-03-18 07:19] LABS: MANUAL DIFF FLAG NO
[2025-03-18 07:33] LABS: Hematocrit 26.3 % (42.0-52.0); Hemoglobin 8.1 g/dl (14.0-18.0); Imm Gran Abs Auto 0.10 X10*3/uL (0.00-0.03); Imm Gran Pct Auto 0.6 % (0.0-0.4); Lymphocytes Absolute Auto 2.3 X10*3/uL (1.2-4.9); Mean Corpuscular HGB Conc 30.8 g/dl (31.0-36.0); Mean Corpuscular Hemoglobin 24.9 pg (27.0-33.0); Mean Corpuscular Volume 80.9 fL (80.0-98.0); NRBC Abs Auto 0.000 X10*3/uL (0.0-0.012); NRBC Pct Auto 0.0 /100WBC (0.0-0.2); Platelet Count 326 X10*3/uL (160-400); Red Blood Count 3.25 X10*6/uL (4.60-5.80); White Blood Count 16.6 X10*3/uL (4.8-10.8)
[2025-03-18 07:45] LABS: Anion Gap 13 (12-20); Blood Urea Nitrogen 37 mg/dL (9-16); Calcium 8.2 mg/dL (8.4-10.2); Carbon Dioxide 23 mmol/L (22-29); Chloride 112 mmol/L (96-108); Creatinine Clr Calc Pharmacy 49.7; Estimated Glomerular Filt Rate > 60; Potassium 3.5 mmol/L (3.3-5.1); Sodium 144 mmol/L (135-145)
--- NOTE | 2025-03-18 08:05 | P.PNGS_ITS ---
Subjective Subjective Date of Service: 03/18/25 <Eileen Jack PA-C - Last Filed: 03/18/25 10:18> 03/18/25 <Tanesha Gil MD - Last Filed: 03/18/25 10:59> Interval history: Sleepy, oriented to self. Asking for water. Has not been OOB yet. < Eileen Jack PA-C - Last Filed: 03/18/25 10:18> Physical Exam 2 Vital Signs: Vital Signs: Last Vital Signs Temp 98.0 F 03/18/25 07:11 Pulse 75 03/18/25 07:11 Resp 20 03/18/25 07:11 BP 138/66 03/18/25 07:11 Pulse Ox 95 03/18/25 07:11 O2 Del Method Room Air 03/18/25 07:11 O2 Flow Rate 2 03/18/25 03:33 BMI result Body Mass Index 23.4 <Eileen Jack PA-C - Last Filed: 03/18/25 10:18> Const: General: comfortable, no acute distress and tired appearing < Eileen Jack PA-C - Last Filed: 03/18/25 10:18> Orientation/consciousness: oriented to person <Eileen Jack PA-C - Last Filed: 03/18/25 10:18> Resp: Effort & Inspection: normal respiratory effort, able to speak in complete sentences, Actively coughing and not tachypneic <Eileen Jack PA-C - Last Filed: 03/18/25 10:18> GI: Other: distended but soft, mild tenderness ostomy pink, dark brown stool in appliance incision clean, nick intact and wound edgar removed with sanguineous drainage noted on dressing <Eileen Jack PA-C - Last Filed: 03/18/25 10:18> : Other: murray in place, straw colored urine <CARLITOS Ayala Last Filed: 03/18/25 10:18> Skin: General skin exam: no rashes or lesions noted <CARLITOS Ayala Last Filed: 03/18/25 10:18> Neuro: General: oriented to person and moves all extremities <Eileen Jack PA-C - Last Filed: 03/18/25 10:18> Objective Data Active Medications Lactated Ringer's (Lr) 1,000 mls @ 100 mls/hr IVCONT .Q10H [facility] Last Admin: 03/18/25 01:01 Dose: 100 mls/hr Documented By: KELL Piperacillin Sod/Tazobactam (Sod 3.375 gm/ Sodium Chloride) 50 mls @ 100 mls/hr IV Q6H [facility] Last Admin: 03/18/25 06:19 Dose: 100 mls/hr Documented By: KELL Metoprolol Tartrate (Metoprolol Tartrate 5 Mg/5 Ml Vial) 2.5 mg IVPUSH Q6H PRN; Protocol PRN Reason: HR > 110 Last Admin: 03/17/25 08:50 Dose: 2.5 mg Documented By: ADILENE Morphine Sulfate (Morphine Sulfate 4 Mg/Ml Cartridge) 2 mg IVPUSH RQ4H PRN; Protocol PRN Reason: Pain, Moderate(Pain Scale 4-6) Last Admin: 03/15/25 17:36 Dose: 2 mg Documented By: ADILENE Morphine Sulfate (Morphine Sulfate 4 Mg/Ml Cartridge) 3 mg IVPUSH Q3H PRN; Protocol PRN Reason: Pain, Severe (Pain Scale 7-10) Ondansetron HCl (Ondansetron Hcl 4 Mg/2 Ml Vial) 4 mg IVPUSH Q8H PRN PRN Reason: Nausea and Vomiting Pantoprazole Sodium (Pantoprazole Sodium 40 Mg/10 Ml Vial) 40 mg IVPUSH DAILY@0630 [facility] Last Admin: 03/18/25 06:25 Dose: 40 mg Documented By: KELL Sodium Chloride (0.9 % Sodium Chloride Flush 3 Ml Syringe) 3 ml IVFLUSH QSHIFT [facility] Last Admin: 03/18/25 01:01 Dose: 3 ml Documented By: KELL Tamsulosin HCl (Tamsulosin Hcl 0.4 Mg Capsule) 0.4 mg PO BEDTIME [facility] Last Admin: 03/17/25 21:00 Dose: Not Given Documented By: KELL Non-Admin Reason: See Note Comments: Pt drowsy unable to safely swallow pill <Eileen Jack PA-C - Last Filed: 03/18/25 10:18> Labs CBC & Chem 7: 03/18/25 06:51 03/18/25 06:52 <Eileen Jack PA-C - Last Filed: 03/18/25 10:18> Labs: Laboratory Results - last 24 hr 03/17/25 03/17/25 03/18/25 07:04 13:33 06:51 MCV 80.9 MCH 24.9 L MCHC 30.8 L RDW 16.6 H Plt Count 326 MPV 9.5 Immature Gran % (Auto) 0.6 H Neut % (Auto) 82.3 H Lymph % (Auto) 13.[address] [place] % (Auto) 3.1 Eos % (Auto) 0.1 Baso % (Auto) 0.2 Lymph # (Auto) 2.3 [place] # (Auto) 0.5 Eos # (Auto) 0.0 Baso # (Auto) 0.0 Abs Immat Gran (auto) 0.10 H Absolute Neuts (auto) 13.7 H Absolute Nucleated RBC 0.000 Nucleated RBC % (auto) 0.0 Anion Gap 13 Estim Creat Clear Calc 37.8 Estimated GFR 54 Random Glucose 89 Calcium 8.6 Blood Type O Positive Antibody Screen NEGATIVE 03/18/25 06:52 MCV MCH MCHC RDW Plt Count MPV Immature Gran % (Auto) Neut % (Auto) Lymph % (Auto) [place] % (Auto) Eos % (Auto) Baso % (Auto) Lymph # (Auto) [place] # (Auto) Eos # (Auto) Baso # (Auto) Abs Immat Gran (auto) Absolute Neuts (auto) Absolute Nucleated RBC Nucleated RBC % (auto) Anion Gap 13 Estim Creat Clear Calc 49.7 Estimated GFR > 60 Random Glucose 97 Calcium 8.2 L Blood Type Antibody Screen <Eileen Jack PA-C - Last Filed: 03/18/25 10:18> Microbiology Microbiology Results: Microbiology 03/15/25 Unknown Gram Stain - Final Peritoneal Fluid Routine Culture - Preliminary Escherichia coli Anaerobic Culture - Preliminary Culture in progress. 03/14/25 15:50 Blood Culture - Preliminary Blood - Venous Prelim: GNR Gram Stain only <CARLITOS Ayala Last Filed: 03/18/25 10:18> Procedures Date of Service Date of Service: 03/18/25 <Eileen Jack PA-C - Last Filed: 03/18/25 10:18> 03/18/25 <Tanesha Gil MD - Last Filed: 03/18/25 10:59> Progress Note: A&P Assessment and plan (1) Bowel perforation: Status: Acute <Eileen Jack PA-C - Last Filed: 03/18/25 10:18> Assessment and Plan: POD #3 s/p exploratory laparotomy with Clarissa procedure for presumed perforated diverticulitis. Doing fairly well post operatively considering. Ostomy now with stool output, mildly distended, clean incision. Hemodynamically stable. AM labs reviewed, h/h stable. Ok to have sips of clear liquids for now. Dc murray. WBC hovering at 16- if remains elevated tomorrow, repeat CT scan to assess for collection. GNR bacteremia and on peritoneal cultures. Cont IV abx. Encouraged OOB/ambulation and IS use, PT consult. Ostomy consult. Ok to begin anticoagulation with lovenox, cont to hold eliquis for now until we are nii he needs to further intervention like percutaneous drain. <BRANDY Ayala - Last Filed: 03/18/25 10:18> POD #3 s/p exploratory laparotomy with Clarissa procedure for presumed perforated diverticulitis. Doing fairly well post operatively considering. Ostomy now with stool output, mildly distended, clean incision. Hemodynamically stable. AM labs reviewed, h/h stable. Ok to have sips of clear liquids for now. Dc murray. WBC hovering at 16- if remains elevated tomorrow, repeat CT scan to assess for collection. GNR bacteremia and on peritoneal cultures. Cont IV abx. Encouraged OOB/ambulation and IS use, PT consult. Ostomy consult. Ok to begin anticoagulation with lovenox, cont to hold eliquis for now until we are nii he needs to further intervention like percutaneous drain. Pt doing well - vitals ok, ostomy functioning and wound good, xu drainage not bloody or purulent concerned re - resp status - working with PT and resp and nursing liquiid diet, OOB, cont with iv antibx and fu on cultures. - wbc stable at 16 < Tanesha Gil MD - Last Filed: 03/18/25 10:59> Time Spent With Patient Time: Total time managing care of this patient today ____ minutes. <Eileen Jack PA-C - Last Filed: 03/18/25 10:18> Quality Stroke Does the patient have a stroke diagnosis?: No <Eileen Jack PA-C - Last Filed: 03/18/25 10:18> VTE Prior VTE?: No <Eileen Jack PA-C - Last Filed: 03/18/25 10:18> VTE Risk Level:: Surgical - low <Eileen Jack PA-C - Last Filed: 03/18/25 10:18> VTE Device Contraindication: N/A - Device Ordered <Eileen Jack PA-C - Last Filed: 03/18/25 10:18> VTE Drug Contraindication: Treatment Not Indicated <Eileen Jack PA-C - Last Filed: 03/18/25 10:18>
--- NOTE | 2025-03-18 10:45 | MHC.CM.PN ---
Patient is not yet medically cleared for dc (new ostomy, advancing diet); returning to [facility] is the goal and CM will continue to follow.
--- NOTE | 2025-03-18 12:21 | HO.OSTOMY ---
Ostomy Consult: Initial Teaching 89yr old [place] [facility] [place] see H&P for detailed history and admission.? Consult for new ostomy teaching. ?He had Colostomy creation on 03/16/[address] Gil. ?Upon entry into patient's room, patient is lying in bed, alert and oriented but pleasantly confused, currently has no complaints. ?Introductions were completed, he was agreeable to continuing with teaching. ? We discussed pain control at ?2?/ at the current moment,IS provided and educated patient on use. Patient has sitter and requested Q 1 hr reminder to use IS. Patient was able to provide a return demonstration on its use he needed continuous cueing for use. He is noted for audible wheezing and course breaths - denies Shortness of breath and nurse reports baseline. Patient has not yet ambulated. ?He was pleasantly confused and not appropriate for teaching at this time. He was able to observe a pouch change and the open close of the pouch but was not able to retain information at this time. Inpatient will continue to follow along for readiness. Stoma 03/18/25 Permission was granted for pouch assessment and no leak was noted.? Agreeable to pouch change at this time. Stoma is red moist and round, peristomal bruising noted.?Mushy brown stool with gas noted in pouch. Midline incision changed due to being with in field of pouch change. Midline observed to be clean and no dehiscence noted. There was red bloody drainage approximately Quarter sized noted on the dressing. ?Cloplast 1 piece pouch [id number] applied cut to 35 round applied without complication. Patient was made aware that I will return to bedside later in week for ongoing education - however given his baseline confusion teaching will be challenging.
--- NOTE | 2025-03-18 13:43 | HO.PM.IMPN ---
Subjective Subjective Date of Service: 03/18/25 Interval History: Less agitated, still confused, but overall seems to be making progress blood and peritoneal cultures are growing gram negative, e.coli Physical Exam Vital Signs: Vital Signs: Last Vital Signs Temp 98.1 F 03/18/25 11:24 Pulse 117 H 03/18/25 11:24 Resp 20 03/18/25 11:24 BP 144/68 H 03/18/25 11:24 Pulse Ox 90 L 03/18/25 11:24 O2 Del Method Nasal Cannula 03/18/25 11:24 O2 Flow Rate 2 03/18/25 11:24 BMI result Body Mass Index 23.4 Const: Other: General: awake, alert but confused, Resp: CTA bilateral CVS: S1,S iregular iregular GI:mild distention, no bs has colostomy bag, and ALVIN drain with serosanguinous Skin: No rash Neuro: motor grossly intact Psych: appropriate affect Objective Data Active Medications Lactated Ringer's (Lr) 1,000 mls @ 100 mls/hr IVCONT .Q10H [facility] Last Admin: 03/18/25 01:01 Dose: 100 mls/hr Documented By: KELL Piperacillin Sod/Tazobactam (Sod 3.375 gm/ Sodium Chloride) 50 mls @ 100 mls/hr IV Q6H [facility] Last Infusion: 03/18/25 06:49 Dose: Infused Documented By: KELL Metoprolol Tartrate (Metoprolol Tartrate 5 Mg/5 Ml Vial) 2.5 mg IVPUSH Q6H PRN; Protocol PRN Reason: HR > 110 Last Admin: 03/17/25 08:50 Dose: 2.5 mg Documented By: ADILENE Morphine Sulfate (Morphine Sulfate 4 Mg/Ml Cartridge) 2 mg IVPUSH RQ4H PRN; Protocol PRN Reason: Pain, Moderate(Pain Scale 4-6) Last Admin: 03/15/25 17:36 Dose: 2 mg Documented By: ADILENE Morphine Sulfate (Morphine Sulfate 4 Mg/Ml Cartridge) 3 mg IVPUSH Q3H PRN; Protocol PRN Reason: Pain, Severe (Pain Scale 7-10) Ondansetron HCl (Ondansetron Hcl 4 Mg/2 Ml Vial) 4 mg IVPUSH Q8H PRN PRN Reason: Nausea and Vomiting Pantoprazole Sodium (Pantoprazole Sodium 40 Mg/10 Ml Vial) 40 mg IVPUSH DAILY@0630 [facility] Last Admin: 03/18/25 06:25 Dose: 40 mg Documented By: KELL Sodium Chloride (0.9 % Sodium Chloride Flush 3 Ml Syringe) 3 ml IVFLUSH QSHIFT [facility] Last Admin: 03/18/25 01:01 Dose: 3 ml Documented By: KELL Tamsulosin HCl (Tamsulosin Hcl 0.4 Mg Capsule) 0.4 mg PO BEDTIME [facility] Last Admin: 03/17/25 21:00 Dose: Not Given Documented By: KELL Non-Admin Reason: See Note Comments: Pt drowsy unable to safely swallow pill Labs 03/18/25 06:51 03/18/25 06:52 Labs: Laboratory Results - last 24 hr 03/17/25 03/18/25 03/18/25 13:33 06:51 06:52 MCV 80.9 MCH 24.9 L MCHC 30.8 L RDW 16.6 H Plt Count 326 MPV 9.5 Immature Gran % (Auto) 0.6 H Neut % (Auto) 82.3 H Lymph % (Auto) 13.7 L [place] % (Auto) 3.1 Eos % (Auto) 0.1 Baso % (Auto) 0.2 Lymph # (Auto) 2.3 [place] # (Auto) 0.5 Eos # (Auto) 0.0 Baso # (Auto) 0.0 Abs Immat Gran (auto) 0.10 H Absolute Neuts (auto) 13.7 H Absolute Nucleated RBC 0.000 Nucleated RBC % (auto) 0.0 Anion Gap 13 Estim Creat Clear Calc 49.7 Estimated GFR > 60 Random Glucose 97 Calcium 8.2 L Blood Type O Positive Antibody Screen NEGATIVE Microbiology Microbiology Results: Microbiology 03/14/25 15:50 Blood Culture - Preliminary Blood - Venous Prelim: GNR Gram Stain only 03/15/25 Unknown Gram Stain - Final Peritoneal Fluid Routine Culture - Preliminary Escherichia coli Viridans streptococcus group Anaerobic Culture - Preliminary Culture in progress. Assessment and Plan (1) Severe sepsis: Status: Acute (2) Small bowel perforation: Status: Acute (3) RIOS (acute kidney injury): Status: Acute Plan 89 yo male from the [facility] with a pmhx significant for dementia, a fib on eliquis, HTN, CHF, HLD and BPH, who presented to the ED due to abd pain and chest pain x4 hours and found to have perforated viscus complicated by severe sepsis Perforated viscus with Severe sepsis peritonitis' s/p ex-lap, colectomy and colostomy on 03/15 blood culture and peritoneal culture growing E.coli and Strep Viridan Continue IV Zosyn covers E.coli, Strep Viridan and also anerobe, when ready for DC can change to PO Augmentin Diet per surgery Pain medication. Incentive spirometry Consider ID consult RIOS, suspect ATN from sepsis, resolved IVF, avoid nephrotoxin and follow renal function closely Delirium and metabolic encephalopathy --likely multifactorial d/t sepsis, RIOS, anesthetics monitor closely, presntly has sitter Acute lactic acidosis, secondary to severe sepsis lactic trended down 4.1-->2.7 IVF anemia, post op, H/H stable, no indication for transfusion UTI zosyn as above follow urine culture a fib with RVR, likely triggered by sepsis IV Metoprolol PRN for RVR, start schedule oral metoprolol 25 bid, resume eliquis when ok with surgery, probably tomorrow HFpEF, no acute exacerbation Hold diruretics, monitor closely while on IVF HLD HTN Losartan and Norvasc on hold, if peristant high may restart one at a time, starting with Norvasc, starting metoprolol as above BPH hold flomax due tohypotension resume when stable after surgery DVT prophylaxis: compression device DNR/DNI Prognosis guarded Quality Stroke Does the patient have a stroke diagnosis?: No VTE Prior VTE?: No VTE Risk Level:: Surgical - low VTE Device Contraindication: N/A - Device Ordered VTE Drug Contraindication: Treatment Not Indicated
--- NOTE | 2025-03-18 16:39 | W.PM.IDCN ---
History of Present Illness Data of Consult Service Date: 03/18/25 Requesting physician: Maik Fabian Primary Care Provider: Bruno Guillen MD HPI Reason for consult: sepsis,perforated bowel He presents with abdominal and chest pain started at [facility] on 03/14. He had temperature 100.5 and pulse 110 on admission. He had free air and found perforated diverticulitis with abdominal abscess and had exploratory lap and Fine on 03/15. He has no complaints. Review of Systems Review of Systems: Yes all other systems are reviewed and are negative FORMERLY [facility], [facility]1983 Past Medical History Medical History BPH (benign prostatic hyperplasia) HLD (hyperlipidemia) CHF (congestive heart failure) HTN (hypertension) A-fib Dementia Family History Family history: reviewed and not pertinent Social History Social History Household Members: Unknown / Unable to assess Housing: Unknown / Unable to assess Comment: 1:1 sitter Patient Tobacco Use Status: Former Tobacco user service: No Meds Allergies Allergy/AdvReac Type Severity Reaction Status Date / Time No Known Allergies Allergy Verified 03/14/25 15:10 Active Medications: Current Medications Atorvastatin Calcium (Atorvastatin Calcium 20 Mg Tablet) 20 mg PO BEDTIME [facility] Lactated Ringer's (Lr) 1,000 mls @ 100 mls/hr IVCONT .Q10H [facility] Last Infusion: 03/18/25 15:27 Dose: 0 mls/hr Piperacillin Sod/Tazobactam (Sod 3.375 gm/ Sodium Chloride) 50 mls @ 100 mls/hr IV Q6H [facility] Last Infusion: 03/18/25 15:27 Dose: Infused Metoprolol Tartrate (Metoprolol Tartrate 5 Mg/5 Ml Vial) 5 mg IVPUSH Q6H PRN; Protocol PRN Reason: HR > 110 Metoprolol Tartrate (Metoprolol Tartrate 25 Mg Tablet) 25 mg PO BID [facility]; Protocol Last Admin: 03/18/25 15:12 Dose: 25 mg Morphine Sulfate (Morphine Sulfate 4 Mg/Ml Cartridge) 2 mg IVPUSH RQ4H PRN; Protocol PRN Reason: Pain, Moderate(Pain Scale 4-6) Last Admin: 03/15/25 17:36 Dose: 2 mg Morphine Sulfate (Morphine Sulfate 4 Mg/Ml Cartridge) 3 mg IVPUSH Q3H PRN; Protocol PRN Reason: Pain, Severe (Pain Scale 7-10) Ondansetron HCl (Ondansetron Hcl 4 Mg/2 Ml Vial) 4 mg IVPUSH Q8H PRN PRN Reason: Nausea and Vomiting Pantoprazole Sodium (Pantoprazole Sodium 40 Mg/10 Ml Vial) 40 mg IVPUSH DAILY@0630 [facility] Last Admin: 03/18/25 06:25 Dose: 40 mg Sodium Chloride (0.9 % Sodium Chloride Flush 3 Ml Syringe) 3 ml IVFLUSH QSHIFT [facility] Last Admin: 03/18/25 15:13 Dose: Not Given Tamsulosin HCl (Tamsulosin Hcl 0.4 Mg Capsule) 0.4 mg PO BEDTIME [facility] Last Admin: 03/17/25 21:00 Dose: Not Given Home Medications ?Medication ?Instructions ?Recorded ?Confirmed ?Last Taken ?Type acetaminophen 325 mg tablet 650 mg PO Q4H PRN Pain 03/15/25 03/15/25 03/13/25 History amlodipine 5 mg tablet 5 mg PO DAILY 03/15/25 03/15/25 03/14/25 History apixaban 5 mg tablet (Eliquis) 5 mg PO BID 03/15/25 03/15/25 03/14/25 History atorvastatin 20 mg tablet 20 mg PO BEDTIME 03/15/25 03/15/25 03/13/25 History furosemide 20 mg tablet 20 mg PO BID 03/15/25 03/15/25 03/14/25 History losartan 25 mg tablet 25 mg PO DAILY 03/15/25 03/15/25 03/14/25 History ondansetron HCl 4 mg tablet 4 mg PO Q8H PRN Nausea And Vomiting 03/15/25 03/15/25 03/08/25 History polyethylene glycol 3350 17 17 g PO DAILY PRN Constipation 03/15/25 03/15/25 Unknown History gram/dose oral powder potassium chloride 20 mEq 20 meq PO DAILY 03/15/25 03/15/25 03/14/25 History tablet,extended release(part/cryst) simethicone 80 mg chewable tablet 80 mg PO BID PRN Abdominal 03/15/25 03/15/25 03/14/25 History Distention tamsulosin 0.4 mg capsule 0.4 mg PO BEDTIME 03/15/25 03/15/25 03/13/25 History Physical Exam Vital Signs: Vital Signs: Last Vital Signs Temp 99.2 F 03/18/25 14:56 Pulse 113 H 03/18/25 14:56 Resp 18 03/18/25 14:56 BP 138/60 03/18/25 14:56 Pulse Ox 90 L 03/18/25 14:56 O2 Del Method Oxymask 03/18/25 14:56 O2 Flow Rate 2 03/18/25 14:56 BMI result Body Mass Index 23.4 Const: General: cooperative HEENT: Head: Yes normal to inspection Face and sinus: Yes normal facial exam Mouth: Normal oral and palatal mucosa present Teeth and gingiva: dentition normal Eyes: General: appearance normal, both eyes and all related structures Pupils: Equal, round and reactive pupils present Resp: Effort & Inspection: normal respiratory effort Cardio: Rate: regular rate Rhythm: regular rhythm GI: Other: clean postop wound,colostomy Palpation (GI): Soft to palpation and nontender : General: Yes no CVA tenderness Back/Spine/Pelvis: Back: no CVA tenderness Skin: General skin exam: no rashes or lesions noted Neuro: General: moves all extremities Cranial nerves: Yes Equal, round and reactive pupils present Extrem: General: Yes normal to inspection Psych: Appearance: grossly normal Results Labs 03/18/25 06:51 03/18/25 06:52 Labs: Short CBC 03/18/25 Range/Units 06:51 WBC 16.6 H (4.8-10.8) X10*3/uL Hgb 8.1 L (14.0-18.0) g/dl Hct 26.3 L (42.0-52.0) % Plt Count 326 (160-400) X10*3/uL BMP 03/18/25 06:52 Sodium 144 Potassium 3.5 Chloride 112 H Carbon Dioxide 23 BUN 37 H Creatinine 0.96 Calcium 8.2 L Microbiology Microbiology Results: Microbiology 03/14/25 15:50 Blood - Venous Blood Culture - Preliminary Prelim: GNR Gram Stain only 03/15/25 Unknown Peritoneal Fluid Gram Stain - Final 03/15/25 Unknown Peritoneal Fluid Routine Culture - Preliminary Escherichia coli Viridans streptococcus group 03/15/25 Unknown Peritoneal Fluid Anaerobic Culture - Preliminary Culture in progress. 03/14/25 15:54 Blood - Venous Blood Culture - Preliminary No growth after 48 hours. 03/14/25 21:15 Urine clean catch - Clean Catch Midstream Urine Culture - Final No growth. Assessment and Plan (1) Bowel perforation: Status: Acute (2) Gram-negative bacteremia: Status: Acute (3) Severe sepsis: Status: Acute Plan He has possible E coli in blood,abscess cavity E coli and viridans strep. He has resolving sepsis Would continue piperacillin/tazobactam Await blood cultures and continue IV antibiotics for now. When eating and taking po hopefully able to convert to oral for total 14 d cover peritonitis.
[2025-03-19] VITALS (7 sets, daily range): BP systolic 114–132; BP diastolic 55–87; PULSE 68–106; RESP 18–24; TEMP 36.3–36.7; O2SAT 2–97
[2025-03-19] MEDS: OLANZapine 10 MG VIAL 5 MG IM (00:42)
--- NOTE | 2025-03-19 05:34 | PC.NURSE ---
Assumed care of pt at 1900. Pt confused, alert to self only. Agitated with staff, 1:[address] At approx 2200, pt was intontinent of urine, male purewik placed. Post void bladder scan was 0ml. At approx 0015, pt incresingly agitated and became combative with staff, ripping off O2 mask and tele leads. MD Sanchez notified. One time dose IM Olanzapine given with good effect. Plan of care ongoing.
--- NOTE | 2025-03-19 06:01 | P.PNGS_ITS ---
Subjective Subjective Date of Service: 03/19/25 <Liliana Braxton - Last Filed: 03/19/25 07:09> 03/19/25 <Eileen Jack PA-C - Last Filed: 03/19/25 08:10> 03/19/25 <Tanesha Gil MD - Last Filed: 03/19/25 22:27> Interval history: Patient became increasingly agitated overnight requiring Ziprexa IM. Oriented to name. <Liliana Braxton - Last Filed: 03/19/25 07:09> Patient became increasingly agitated overnight requiring Ziprexa IM. Oriented to name. <Eileen Jack PA-C - Last Filed: 03/19/25 08:10> Physical Exam 2 Vital Signs: Vital Signs: Last Vital Signs Temp 97.7 F 03/19/25 03:37 Pulse 68 03/19/25 03:37 Resp 18 03/19/25 03:37 BP 128/59 L 03/19/25 03:37 Pulse Ox 97 03/19/25 03:37 O2 Del Method Oxymask 03/19/25 03:37 O2 Flow Rate 2 03/19/25 03:37 BMI result Body Mass Index 23.4 <Liliana Braxton - Last Filed: 03/19/25 07:09> Const: General: other (agitated and uncooperative with exam ) <Liliana Braxton - Last Filed: 03/19/25 07:09> Resp: Other: Respiratory effort difficult to assess due to patients behaviorally dysregulated state <Liliana Braxton - Last Filed: 03/19/25 07:09> Effort & Inspection: able to speak in complete sentences <Liliana Braxton - Last Filed: 03/19/25 07:09> Effort & Inspection: normal respiratory effort, not labored and not tachypneic <Eileen Jack PA-C - Last Filed: 03/19/25 08:10> Auscultation: crackles on the left <Liliana Braxton - Last Filed: 03/19/25 07:09> GI: Other: dressings clean and dry Abd distended but soft Ostomomy present - dark brown stool in appliance <Liliana Braxton - Last Filed: 03/19/25 07:09> Other: dressings clean and dry Abd distended but soft Ostomy present - dark brown stool in appliance <Eileen Jack PA-C - Last Filed: 03/19/25 08:10> Palpation (GI): nontender, no guarding and not rigid <Eileen Jack PA-C - Last Filed: 03/19/25 08:10> Skin: Other: warm and dry <Eileen Jack PA-C - Last Filed: 03/19/25 08:10> Objective Data Active Medications Atorvastatin Calcium (Atorvastatin Calcium 20 Mg Tablet) 20 mg PO BEDTIME [facility] Last Admin: 03/18/25 22:36 Dose: 20 mg Documented By: TOÑO Lactated Ringer's (Lr) 1,000 mls @ 100 mls/hr IVCONT .Q10H [facility] Last Infusion: 03/18/25 15:27 Dose: 0 mls/hr Documented By: ELAN Piperacillin Sod/Tazobactam (Sod 3.375 gm/ Sodium Chloride) 50 mls @ 100 mls/hr IV Q6H [facility] Last Infusion: 03/19/25 01:20 Dose: Infused Documented By: TOÑO Metoprolol Tartrate (Metoprolol Tartrate 5 Mg/5 Ml Vial) 5 mg IVPUSH Q6H PRN; Protocol PRN Reason: HR > 110 Metoprolol Tartrate (Metoprolol Tartrate 25 Mg Tablet) 25 mg PO BID [facility]; Protocol Last Admin: 03/18/25 22:35 Dose: 25 mg Documented By: TOÑO Morphine Sulfate (Morphine Sulfate 4 Mg/Ml Cartridge) 2 mg IVPUSH RQ4H PRN; Protocol PRN Reason: Pain, Moderate(Pain Scale 4-6) Last Admin: 03/15/25 17:36 Dose: 2 mg Documented By: ADILENE Morphine Sulfate (Morphine Sulfate 4 Mg/Ml Cartridge) 3 mg IVPUSH Q3H PRN; Protocol PRN Reason: Pain, Severe (Pain Scale 7-10) Ondansetron HCl (Ondansetron Hcl 4 Mg/2 Ml Vial) 4 mg IVPUSH Q8H PRN PRN Reason: Nausea and Vomiting Pantoprazole Sodium (Pantoprazole Sodium 40 Mg/10 Ml Vial) 40 mg IVPUSH DAILY@0630 [facility] Last Admin: 03/18/25 06:25 Dose: 40 mg Documented By: KELL Sodium Chloride (0.9 % Sodium Chloride Flush 3 Ml Syringe) 3 ml IVFLUSH QSHIFT [facility] Last Admin: 03/18/25 22:36 Dose: 3 ml Documented By: TOÑO Tamsulosin HCl (Tamsulosin Hcl 0.4 Mg Capsule) 0.4 mg PO BEDTIME [facility] Last Admin: 03/18/25 22:35 Dose: 0.4 mg Documented By: TOÑO <Liliana Braxton - Last Filed: 03/19/25 07:09> Labs CBC & Chem 7: 03/19/25 07:50 03/19/25 07:50 <Liliana Braxton - Last Filed: 03/19/25 07:09> Labs: Laboratory Results - last 24 hr 03/18/25 03/18/25 06:51 06:52 MCV 80.9 MCH 24.9 L MCHC 30.8 L RDW 16.6 H Plt Count 326 MPV 9.5 Immature Gran % (Auto) 0.6 H Neut % (Auto) 82.3 H Lymph % (Auto) 13.7 L [place] % (Auto) 3.1 Eos % (Auto) 0.1 Baso % (Auto) 0.2 Lymph # (Auto) 2.3 [place] # (Auto) 0.5 Eos # (Auto) 0.0 Baso # (Auto) 0.0 Abs Immat Gran (auto) 0.10 H Absolute Neuts (auto) 13.7 H Absolute Nucleated RBC 0.000 Nucleated RBC % (auto) 0.0 Anion Gap 13 Estim Creat Clear Calc 49.7 Estimated GFR > 60 Random Glucose 97 Calcium 8.2 L <Liliana Braxton - Last Filed: 03/19/25 07:09> Microbiology Microbiology Results: Microbiology 03/14/25 15:50 Blood Culture - Preliminary Blood - Venous Prelim: GNR Gram Stain only 03/15/25 Unknown Gram Stain - Final Peritoneal Fluid Routine Culture - Preliminary Escherichia coli Viridans streptococcus group Anaerobic Culture - Preliminary Culture in progress. <Liliana Braxton - Last Filed: 03/19/25 07:09> Procedures Date of Service Date of Service: 03/19/25 <Liliana Braxton - Last Filed: 03/19/25 07:09> 03/19/25 <Eileen Jack PA-C - Last Filed: 03/19/25 08:10> 03/19/25 <Tanesha Gil MD - Last Filed: 03/19/25 22:27> Progress Note: A&P Assessment and plan (1) Bowel perforation: Status: Acute <Liliana Braxton - Last Filed: 03/19/25 07:09> (2) Gram-negative bacteremia: Status: Acute <Liliana Braxton - Last Filed: 03/19/25 07:09> Assessment and Plan: Rhett Wren is an 89 on POD #4 s/p exploratory laparotomy for with Fine for presumed perforated diverticulitis. PMH includes Afid, HTN, CHF, HLD and BPH. Patient is doing well from a surgical standpoint. Hemodynamically stable. AM labs not updated yet. Will monitor WBC and H&H closely. Ostomy output 200 ml brown stool overnight. Dressings clean and dry. Garg removed yesterday. Urine output 300ml overnight. IV fluids discontinued yesterday for concern with fluid overload. On clear fluid diet and endorses thirst. Continue to monitor UO and respiratory status. Pt currently followed by PT for respiratory and OOB. GNR bacteremia on peritoneal cultures. Continue IV ab. <Liliana Braxton - Last Filed: 03/19/25 07:09> Rhett Wren is an 89 on POD #4 s/p exploratory laparotomy for with Fine for presumed perforated diverticulitis. PMH includes Afid, HTN, CHF, HLD and BPH. Patient is doing well from a surgical standpoint. Hemodynamically stable. AM labs not updated yet. Will monitor WBC and H&H closely. Ostomy output 200 ml brown stool overnight. Dressings clean and dry. Garg removed yesterday. Urine output 300ml overnight. IV fluids discontinued yesterday for concern with fluid overload. On clear fluid diet and endorses thirst. Continue to monitor UO and respiratory status. Pt currently followed by PT for respiratory and OOB. GNR bacteremia on peritoneal cultures. Continue IV ab. Seen independently from [facility]. POD #4 s/p exploratory laparotomy with Clarissa procedure for presumed perforated diverticulitis. More confused, agitated overnight. Had increasing O2 requirements yesterday and fluids stopped. He is difficult to examine this morning due to agitation. Abd is benign and soft, dressing intact ostomy with dark brown output. AM labs pending. If CBC remains elevated will repeat CT scan to assess for collection. Will deescalate diet until more alert. Cont IV abx for now. hospitalists following. May benefit from lasix. <Eileen Jack PA-C - Last Filed: 03/19/25 08:10> Rhett Wren is an 89 on POD #4 s/p exploratory laparotomy for with Fine for presumed perforated diverticulitis. PMH includes Afid, HTN, CHF, HLD and BPH. Patient is doing well from a surgical standpoint. Hemodynamically stable. AM labs not updated yet. Will monitor WBC and H&H closely. Ostomy output 200 ml brown stool overnight. Dressings clean and dry. Garg removed yesterday. Urine output 300ml overnight. IV fluids discontinued yesterday for concern with fluid overload. On clear fluid diet and endorses thirst. Continue to monitor UO and respiratory status. Pt currently followed by PT for respiratory and OOB. GNR bacteremia on peritoneal cultures. Continue IV ab. Seen independently from [facility]. POD #4 s/p exploratory laparotomy with Clarissa procedure for presumed perforated diverticulitis. More confused, agitated overnight. Had increasing O2 requirements yesterday and fluids stopped. He is difficult to examine this morning due to agitation. Abd is benign and soft, dressing intact ostomy with dark brown output. AM labs pending. If CBC remains elevated will repeat CT scan to assess for collection. Will deescalate diet until more alert. Cont IV abx for now. hospitalists following. May benefit from lasix. pt overall doing well on rounds but still confused at times - his breathing is better wbc normal ostomy working -gi function good but his medical issues and underlying status is concerning for his overall prognosis. Will cont with care as above and appreciate med team following. <Tanesha Gil MD - Last Filed: 03/19/25 22:27> Time Spent With Patient Time: Total time managing care of this patient today ____ minutes. <Liliana Braxton - Last Filed: 03/19/25 07:09> Quality Stroke Does the patient have a stroke diagnosis?: No <Liliana Braxton - Last Filed: 03/19/25 07:09> VTE Prior VTE?: No <Liliana Braxton - Last Filed: 03/19/25 07:09> VTE Risk Level:: Surgical - low <Liliana Braxton - Last Filed: 03/19/25 07:09> VTE Device Contraindication: N/A - Device Ordered <Liliana Braxton - Last Filed: 03/19/25 07:09> VTE Drug Contraindication: Treatment Not Indicated <Liliana Braxton - Last Filed: 03/19/25 07:09>
[2025-03-19 08:27] LABS: MANUAL DIFF FLAG NO
[2025-03-19 08:30] LABS: Hematocrit 26.8 % (42.0-52.0); Hemoglobin 7.9 g/dl (14.0-18.0); Imm Gran Abs Auto 0.07 X10*3/uL (0.00-0.03); Imm Gran Pct Auto 0.7 % (0.0-0.4); Lymphocytes Absolute Auto 1.5 X10*3/uL (1.2-4.9); Mean Corpuscular HGB Conc 29.5 g/dl (31.0-36.0); Mean Corpuscular Hemoglobin 25.2 pg (27.0-33.0); Mean Corpuscular Volume 85.4 fL (80.0-98.0); NRBC Abs Auto 0.000 X10*3/uL (0.0-0.012); NRBC Pct Auto 0.0 /100WBC (0.0-0.2); Platelet Count 252 X10*3/uL (160-400); Red Blood Count 3.14 X10*6/uL (4.60-5.80); White Blood Count 10.7 X10*3/uL (4.8-10.8)
[2025-03-19 08:48] LABS: Anion Gap 10 (12-20); Blood Urea Nitrogen 30 mg/dL (9-16); Calcium 8.0 mg/dL (8.4-10.2); Carbon Dioxide 20 mmol/L (22-29); Chloride 116 mmol/L (96-108); Creatinine Clr Calc Pharmacy 48.2; Estimated Glomerular Filt Rate > 60; Potassium 3.6 mmol/L (3.3-5.1); Sodium 142 mmol/L (135-145)
[2025-03-19] MEDS: 0.9 % Sodium Chloride Flush 3 ML SYRINGE IVFLUSH ×2 (09:34→15:50)
--- NOTE | 2025-03-19 15:30 | HO.OSTOMY ---
Ostomy Consult: Follow up 89yr old male admitted [place] [facility] [place] - see H&P for detailed history and admission.? Consult for new ostomy teaching. ?He had Colostomy creation on 03/16/[address] Gil. ?Upon entry into patient's room, patient is sitting in recliner chair. He appears frustrated and is refusing assessment at times. Patient was preoccupied with his phone. He requested his phone multiple times - he was granted access to his phone in which he called his daughter Kemi. He was requesting his daughter to kyler the police because he felt things were a mess . She was assured her father was safe in his recliner chair and confused - she reported understanding. She discontinued the phone call with her father and his phone was put back onto the bedside table. He repeatedly asked this nurse to leave him alone - he did allow for a quick assessment of his ostomy pouch which was noted to be intact and not leaking - stoma observed through the pouch is red and the stool is dark brown mushy liquid. He did not allow for further assessment at this time. He is noted to be up to chair with waffle cushion in place and CARISSA mattress in use. All preventative measures should be employed such as SIPP. Patient is not appropriate for teaching at this time will continue to follow along in his chart for readiness and pouching needs. Stoma 03/18/25 Patient was made aware that I will return to bedside later in week for ongoing education - however given his baseline confusion teaching will be challenging.
--- NOTE | 2025-03-19 15:47 | P.PNIM_ITS ---
Subjective Subjective Date of Service: 03/19/25 Interval History: Patient seen today, seems labored in breathing Cough, congested. Tachypneic, not dyspneic Review of Systems Review of Systems: Yes all other systems are reviewed and are negative Physical Exam 2 Exam: Exam: General: A&O x3, oriented to time place person and situation, comfortable, no pain Cardiac: S1, S2 auscultated with no S3/4, no MRG. Well perfused. Respiratory: Increased respiratory rate, decreased breath sounds at the bases bilaterally, with crepitations mildly auscultated. No upper respiratory wheezing. Tachypneic, not dyspneic, congested-sounding cough GI/ : Abdomen distended, soft, tender with coughing, colostomy present, with dark brown stool MSK: Normal ambulation without pain at bony prominences or musculature Neurological: Normal neurological examination on overview, without obvious CN II-XII abnormalities. Vital Signs: Vital Signs: Last Vital Signs Temp 98.1 F 03/19/25 15:18 Pulse 95 03/19/25 15:18 Resp 24 H 03/19/25 15:18 BP 128/59 L 03/19/25 15:18 Pulse Ox 93 03/19/25 15:18 O2 Del Method Room Air 03/19/25 15:18 O2 Flow Rate 2 03/19/25 11:15 BMI result Body Mass Index 23.4 Objective Data Active Medications Atorvastatin Calcium (Atorvastatin Calcium 20 Mg Tablet) 20 mg PO BEDTIME [facility] Last Admin: 03/18/25 22:36 Dose: 20 mg Documented By: TOÑO Lactated Ringer's (Lr) 1,000 mls @ 100 mls/hr IVCONT .Q10H [facility] Last Admin: 03/19/25 09:25 Dose: Not Given Documented By: WADE Non-Admin Reason: Provider (PA) verbalized hold of on IVF Piperacillin Sod/Tazobactam (Sod 3.375 gm/ Sodium Chloride) 50 mls @ 100 mls/hr IV Q6H [facility] Last Infusion: 03/19/25 13:13 Dose: Infused Documented By: WADE Metoprolol Tartrate (Metoprolol Tartrate 5 Mg/5 Ml Vial) 5 mg IVPUSH Q6H PRN; Protocol PRN Reason: HR > 110 Metoprolol Tartrate (Metoprolol Tartrate 25 Mg Tablet) 25 mg PO BID [facility]; Protocol Last Admin: 03/19/25 09:25 Dose: 25 mg Documented By: WADE Morphine Sulfate (Morphine Sulfate 4 Mg/Ml Cartridge) 2 mg IVPUSH RQ4H PRN; Protocol PRN Reason: Pain, Moderate(Pain Scale 4-6) Last Admin: 03/15/25 17:36 Dose: 2 mg Documented By: ADILENE Morphine Sulfate (Morphine Sulfate 4 Mg/Ml Cartridge) 3 mg IVPUSH Q3H PRN; Protocol PRN Reason: Pain, Severe (Pain Scale 7-10) Ondansetron HCl (Ondansetron Hcl 4 Mg/2 Ml Vial) 4 mg IVPUSH Q8H PRN PRN Reason: Nausea and Vomiting Pantoprazole Sodium (Pantoprazole Sodium 40 Mg/10 Ml Vial) 40 mg IVPUSH DAILY@0630 [facility] Last Admin: 03/19/25 06:04 Dose: 40 mg Documented By: TOÑO Sodium Chloride (0.9 % Sodium Chloride Flush 3 Ml Syringe) 3 ml IVFLUSH QSHIFT [facility] Last Admin: 03/19/25 09:34 Dose: 3 ml Documented By: WADE Tamsulosin HCl (Tamsulosin Hcl 0.4 Mg Capsule) 0.4 mg PO BEDTIME [facility] Last Admin: 03/18/25 22:35 Dose: 0.4 mg Documented By: TOÑO Labs 03/19/25 07:50 03/19/25 07:50 Labs: Laboratory Results - last 24 hr 03/19/25 07:50 MCV 85.4 MCH 25.2 L MCHC 29.5 L RDW 16.7 H Plt Count 252 MPV 9.5 Immature Gran % (Auto) 0.7 H Neut % (Auto) 79.3 H Lymph % (Auto) 13.9 L [place] % (Auto) 5.3 Eos % (Auto) 0.7 Baso % (Auto) 0.1 Lymph # (Auto) 1.5 [place] # (Auto) 0.6 Eos # (Auto) 0.1 Baso # (Auto) 0.0 Abs Immat Gran (auto) 0.07 H Absolute Neuts (auto) 8.5 H Absolute Nucleated RBC 0.000 Nucleated RBC % (auto) 0.0 Anion Gap 10 L Estim Creat Clear Calc 48.2 Estimated GFR > 60 Random Glucose 124 H Calcium 8.0 L Microbiology Microbiology Results: Microbiology 03/15/25 Unknown Gram Stain - Final Peritoneal Fluid Routine Culture - Final Escherichia coli Viridans streptococcus group Anaerobic Culture - Preliminary 03/14/25 15:50 Blood Culture - Preliminary Blood - Venous Prelim: GNR Gram Stain only Assessment and Plan (1) CHF (congestive heart failure): Status: Acute (2) A-fib: Status: Acute (3) Small bowel perforation: Status: Acute (4) Bowel perforation: Status: Acute (5) RIOS (acute kidney injury): Status: Acute (6) Acute lactic acidosis: Status: Acute (7) BPH (benign prostatic hyperplasia): Status: Acute (8) Severe sepsis: Status: Acute (9) Dementia: Status: Acute Plan 89 yo male from the [facility] with a pmhx significant for dementia, a fib on eliquis, HTN, CHF, HLD and BPH, who presented to the ED due to abd pain and chest pain x4 hours and found to have perforated viscus complicated by severe sepsis & acute CHF exacerbation. Perforated viscus with Severe sepsis peritonitis' s/p ex-lap, colectomy and colostomy on 03/15 blood culture and peritoneal culture growing E.coli and Strep Viridan Continue IV Zosyn covers E.coli, Strep Viridan and also anerobe, when ready for DC can change to PO Augmentin Diet per surgery Pain medication. Incentive spirometry ID consult ordered, recommendations greatly appreciated New cough and tachypnea Impression of possible acute CHF exacerbation / superimposed URI Patient has elevated JVP bilateral, with reduced breath sounds at the bases. Patient has a congested-sounding cough, which could be 2/2 superimposed URI PLAN - furosemide 20 mg IV once - monitor urinary output and re-evaluate BMP tomorrow - NT proBNP - ECHO - respiratory viral panel - respiratory precautions - chest x-ray RIOS, suspect ATN from sepsis, resolved IVF, avoid nephrotoxin and follow renal function closely Delirium and metabolic encephalopathy --likely multifactorial d/t sepsis, RIOS, anesthetics monitor closely, presntly has sitter Acute lactic acidosis, secondary to severe sepsis lactic trended down 4.1-->2.7 IVF Anemia, post op, H/H stable, no indication for transfusion Transfuse for Hgb <8.0mg/dl UTI zosyn as above follow urine culture a fib with RVR, likely triggered by sepsis IV Metoprolol PRN for RVR, start schedule oral metoprolol 25 bid, resume eliquis when ok with surgery, probably tomorrow HLD HTN Losartan and Norvasc on hold, if peristant high may restart one at a time, starting with Norvasc, starting metoprolol as above BPH hold flomax due tohypotension resume when stable after surgery [employer] - VTE: SCDs - CODE STATUS: DNR/DNI - DIET: NPO currently Total time managing care of this patient today: 45 minutes. Quality Stroke Does the patient have a stroke diagnosis?: No VTE Prior VTE?: No VTE Risk Level:: Surgical - low VTE Device Contraindication: N/A - Device Ordered VTE Drug Contraindication: Treatment Not Indicated
[2025-03-19 16:49] LABS: NT Pro B Type Natriuretic Pept 1510.3 pg/mL (<300)
[2025-03-19] MEDS: Furosemide 20 MG/2 ML VIAL IVPUSH (16:52)
[2025-03-19] MEDS: OLANZapine 10 MG VIAL 2.5 MG IM (18:40)
--- NOTE | 2025-03-19 18:43 | PC.NURSE ---
Addendum entered by Lulu Brar RN 03/19/25 19:24: while pt sleeping desat to 85%, attempted to place 2L NC, pt agitated kept pulling NC out as well as tele monitor and oxymetry. sitter at bedside for safety. MD notified and report given to onctrung watt RN Original Note: pt was very agitated and aggressive, hitting staff, not follow commands, MD notified. Dr Mandujano came and assessed pt. verbal order 2.5 IM zyprexa given per jun. 1:1 sitter anf high fall precautions cont to maintain
[2025-03-20] VITALS (8 sets, daily range): BP systolic 106–145; BP diastolic 60–92; PULSE 53–105; RESP 14–18; TEMP 36.2–36.9; O2SAT 92–97
--- NOTE | 2025-03-20 06:46 | P.PNGS_ITS ---
Subjective Subjective Date of Service: 03/20/25 <Liliana Braxton - Last Filed: 03/20/25 07:09> 03/20/25 <Stas Juarez MD - Last Filed: 03/20/25 08:03> 03/20/25 <CARLITOS Ayala Last Filed: 03/20/25 08:16> Interval history: Sleepy. Desat overnight to 88-89% required oxygen. Patient was increasingly agitated overnight requiring IM olanzapine. Drained 80ml yellow fluid output with occasional red tinge. 600ml urine output. <Liliana Braxton - Last Filed: 03/20/25 07:09> Received IV lasix yesterday. Elevated BNP. respiratory panel pending. Sleepy. Desat overnight to 88-89% required oxygen. Patient was increasingly agitated overnight requiring IM olanzapine. <Eileen Jack PA-C - Last Filed: 03/20/25 08:16> Physical Exam 2 Vital Signs: Vital Signs: Last Vital Signs Temp 98.5 F 03/20/25 03:23 Pulse 102 H 03/20/25 03:23 Resp 18 03/20/25 03:23 BP 123/75 03/20/25 03:23 Pulse Ox 95 03/20/25 03:23 O2 Del Method Room Air 03/20/25 03:23 O2 Flow Rate 2 03/19/25 19:28 BMI result Body Mass Index 23.4 <Liliana Braxton - Last Filed: 03/20/25 07:09> Const: Other: somnolent <Eileen Jack PA-C - Last Filed: 03/20/25 08:16> Resp: Other: some increased work of breathing <CARLITOS Ayala Last Filed: 03/20/25 08:16> Effort & Inspection: not tachypneic <CARLITOS Ayala Last Filed: 03/20/25 08:16> Auscultation: crackles (at lung base) <Liliana Braxton - Last Filed: 03/20/25 07:09> GI: Other: Dressings intact with red tinge. Ostomy present with dark brown output in applicance. <iLliana Braxton - Last Filed: 03/20/25 07:09> Other: dressings clean and intact ALVIN drain more serous output today Ostomy present with dark brown output in applicance. <Eileen Jack PA-C - Last Filed: 03/20/25 08:16> Palpation (GI): Soft to palpation, nontender and no guarding <Liliana Braxton - Last Filed: 03/20/25 07:09> Percussion: Yes normal to percussion <Liliana Braxton - Last Filed: 03/20/25 07:09> Percussion: Yes tympanic to percussion <Eileen Jack PA-C - Last Filed: 03/20/25 08:16> Skin: Other: warm and dry <Eileen Jack PA-C - Last Filed: 03/20/25 08:16> Objective Data Active Medications Atorvastatin Calcium (Atorvastatin Calcium 20 Mg Tablet) 20 mg PO BEDTIME [facility] Last Admin: 03/19/25 22:29 Dose: 20 mg Documented By: SHERIDAN Piperacillin Sod/Tazobactam (Sod 3.375 gm/ Sodium Chloride) 50 mls @ 100 mls/hr IV Q6H [facility] Last Admin: 03/20/25 06:29 Dose: 100 mls/hr Documented By: SHERIDAN Metoprolol Tartrate (Metoprolol Tartrate 5 Mg/5 Ml Vial) 5 mg IVPUSH Q6H PRN; Protocol PRN Reason: HR > 110 Metoprolol Tartrate (Metoprolol Tartrate 25 Mg Tablet) 25 mg PO BID [facility]; Protocol Last Admin: 03/19/25 22:29 Dose: 25 mg Documented By: SHERIDAN Morphine Sulfate (Morphine Sulfate 4 Mg/Ml Cartridge) 3 mg IVPUSH Q3H PRN; Protocol PRN Reason: Pain, Severe (Pain Scale 7-10) Last Admin: 03/20/25 03:43 Dose: 3 mg Documented By: SHERIDAN Ondansetron HCl (Ondansetron Hcl 4 Mg/2 Ml Vial) 4 mg IVPUSH Q8H PRN PRN Reason: Nausea and Vomiting Pantoprazole Sodium (Pantoprazole Sodium 40 Mg/10 Ml Vial) 40 mg IVPUSH DAILY@0630 [facility] Last Admin: 03/20/25 06:31 Dose: 40 mg Documented By: SHERIDAN Sodium Chloride (0.9 % Sodium Chloride Flush 3 Ml Syringe) 3 ml IVFLUSH QSHIFT [facility] Last Admin: 03/20/25 00:00 Dose: 3 ml Documented By: SHERIDAN Tamsulosin HCl (Tamsulosin Hcl 0.4 Mg Capsule) 0.4 mg PO BEDTIME [facility] Last Admin: 03/19/25 22:29 Dose: 0.4 mg Documented By: SHERIDAN <Liliana Braxton - Last Filed: 03/20/25 07:09> Labs CBC & Chem 7: 03/19/25 07:50 03/19/25 07:50 <Liliana Braxton - Last Filed: 03/20/25 07:09> Labs: Laboratory Results - last 24 hr 03/19/25 07:50 MCV 85.4 MCH 25.2 L MCHC 29.5 L RDW 16.7 H Plt Count 252 MPV 9.5 Immature Gran % (Auto) 0.7 H Neut % (Auto) 79.3 H Lymph % (Auto) 13.9 L [place] % (Auto) 5.3 Eos % (Auto) 0.7 Baso % (Auto) 0.1 Lymph # (Auto) 1.5 [place] # (Auto) 0.6 Eos # (Auto) 0.1 Baso # (Auto) 0.0 Abs Immat Gran (auto) 0.07 H Absolute Neuts (auto) 8.5 H Absolute Nucleated RBC 0.000 Nucleated RBC % (auto) 0.0 Anion Gap 10 L Estim Creat Clear Calc 48.2 Estimated GFR > 60 Random Glucose 124 H Calcium 8.0 L NT-Pro-B Natriuret Pep 1510.3 H <Liliana Braxton - Last Filed: 03/20/25 07:09> Microbiology Microbiology Results: Microbiology 03/14/25 15:54 Blood Culture - Final Blood - Venous No growth after 5 days. 03/15/25 Unknown Gram Stain - Final Peritoneal Fluid Routine Culture - Final Escherichia coli Viridans streptococcus group Anaerobic Culture - Preliminary 03/14/25 15:50 Blood Culture - Preliminary Blood - Venous Prelim: GNR Gram Stain only <Liliana Braxton - Last Filed: 03/20/25 07:09> Procedures Date of Service Date of Service: 03/20/25 <Liliana Braxton - Last Filed: 03/20/25 07:09> 03/20/25 <Stas Juarez MD - Last Filed: 03/20/25 08:03> 03/20/25 <Eileen Jack PA-C - Last Filed: 03/20/25 08:16> Progress Note: A&P Assessment and plan (1) Bowel perforation: Status: Acute <Liliana Braxton - Last Filed: 03/20/25 07:09> Assessment and Plan: Mental status seems the same - non verbal but according to nursing staff, he seems to improve later in the day Stoma functioning well Abdomen is soft and benign Dressings changed ALVIN drain serosanguineous Okay to try clear liquids and advance as tolerated IV antibiotics Seen and examined independently <Stas Juarez MD - Last Filed: 03/20/25 08:03> Assessment and Plan: POD 5 s/p exploratory laparotomy with Fine for perforated diverticulitis. VSS despite overnight desats requiring oxygen. Abdominal exam benign. Dressings intact, viable ostomy present with good GI function. Cont IV ab for confirmed GNR peritonitis. <Liliana Braxton - Last Filed: 03/20/25 07:09> POD 5 s/p exploratory laparotomy with Fine for perforated diverticulitis. VSS despite overnight desats requiring oxygen. Abdominal exam benign. Dressings intact, viable ostomy present with good GI function. Cont IV ab for confirmed GNR peritonitis. Seen independently from [facility]-3. patient more somnolent this morning, improved throughout the day per RN. Leukocytosis resolved yesterday. Abd remains overall benign, incision clean. Ostomy continues to function, ALVIN drain more serous appearing. No evidence of active bleeding. Ok to begin OAC. Will discuss with medicine. Appreciate hospitalist input and medical management. Cont IV zosyn. <Eileen Jack PA-C - Last Filed: 03/20/25 08:16> Time Spent With Patient Time: Total time managing care of this patient today ____ minutes. <Liliana Braxton - Last Filed: 03/20/25 07:09> Quality Stroke Does the patient have a stroke diagnosis?: No <Liliana Braxton - Last Filed: 03/20/25 07:09> VTE Prior VTE?: No <Liliana Braxton - Last Filed: 03/20/25 07:09> VTE Risk Level:: Surgical - low <Liliana Braxton - Last Filed: 03/20/25 07:09> VTE Device Contraindication: N/A - Device Ordered <Liliana Braxton - Last Filed: 03/20/25 07:09> VTE Drug Contraindication: Treatment Not Indicated <Liliana Braxton - Last Filed: 03/20/25 07:09>
[2025-03-20 10:20] LABS: MANUAL DIFF FLAG NO
[2025-03-20 10:23] LABS: Hematocrit 22.4 % (42.0-52.0); Imm Gran Abs Auto 0.11 X10*3/uL (0.00-0.03); Imm Gran Pct Auto 0.7 % (0.0-0.4); Lymphocytes Absolute Auto 1.6 X10*3/uL (1.2-4.9); Mean Corpuscular HGB Conc 30.4 g/dl (31.0-36.0); Mean Corpuscular Hemoglobin 25.0 pg (27.0-33.0); Mean Corpuscular Volume 82.4 fL (80.0-98.0); NRBC Abs Auto 0.000 X10*3/uL (0.0-0.012); NRBC Pct Auto 0.0 /100WBC (0.0-0.2); Platelet Count 269 X10*3/uL (160-400); Red Blood Count 2.72 X10*6/uL (4.60-5.80); White Blood Count 16.2 X10*3/uL (4.8-10.8)
[2025-03-20 10:31] LABS: Hemoglobin 6.8 g/dl (14.0-18.0)
[2025-03-20 10:40] LABS: Chlamydia pneumoniae PCR Not Detected (Not Detect.); Coronavirus 229E PCR Not Detected (Not Detect.); Coronavirus HKU1 PCR Not Detected (Not Detect.); Coronavirus NL63 PCR Not Detected (Not Detect.); Coronavirus OC43 PCR Not Detected (Not Detect.); RSV PCR Not Detected (Not Detect.); Rhino/Enterovirus PCR Not Detected (Not Detect.)
[2025-03-20 10:44] LABS: Anion Gap 12 (12-20); Blood Urea Nitrogen 28 mg/dL (9-16); Calcium 8.0 mg/dL (8.4-10.2); Carbon Dioxide 24 mmol/L (22-29); Chloride 113 mmol/L (96-108); Creatinine Clr Calc Pharmacy 41.5; Estimated Glomerular Filt Rate > 60; Potassium 3.2 mmol/L (3.3-5.1); Sodium 146 mmol/L (135-145)
--- NOTE | 2025-03-20 11:20 | MHC.CM.PN ---
Per ROUNDS discussion, Patient is not yet medically cleared for dc (desat over night/required O2 & IV med r/t Agitation).
[2025-03-20] MEDS: 0.9 % Sodium Chloride Flush 3 ML SYRINGE IVFLUSH ×2 (11:29)
[2025-03-20 11:31] LABS: Influenza A H1 PCR Not Detected (Not Detect.); Influenza A H1-2009 PCR Not Detected (Not Detect.); Influenza A H3 PCR Not Detected (Not Detect.); SARS-CoV-2 PCR Not Detected (Not Detect.)
--- NOTE | 2025-03-20 15:09 | PM.EVENT ---
Event Note Date of Service: 03/20/25 Event Note: Seen on afternoon rounds Very drowsy but wakes up with verbal stimulation Answers simple questions Often combative and confused according to nursing staff Abdomen is soft Good stoma output Continue current care for now Diet as tolerated Aspiration precautions Time Spent With Patient Time: Total time managing care of this patient today ____ minutes.
--- NOTE | 2025-03-20 15:47 | HO.OSTOMY ---
Ostomy Consult: Follow up 89yr old male admitted to [facility] [place] [facility] on 03/14/25 - see H&P for detailed history and admission.? Consult for new ostomy teaching. ?He had Colostomy creation on 03/16/[address] Gil. ?Upon entry into patient's room, patient is lying in bed, awake but eyes closed and not responding to his environment at this time. Patient was no appropriate for teaching at this time. Pouch assessed to be intact and no leaking noted. Request for type of supplies needed at time of d/c listed below for prep for d/c. Inpatient will continue to follow along for readiness. Stoma 03/18/25 Coloplast 1 piece pouch #[id number] applied cut to 35 round applied without complication. Stoma is budded above skin line no pouching concerned noted at this time. Recommend the following steps: 1. Empty pouch before pouch change 2. Remove pouch using push/pull technique from top to bottom 3. Cleanse stoma and skin with tap water only - no soap or wipes 4. Pat dry 5. Measure stoma and cut new pouch no more than 1/8 inch larger than stoma and no smaller than stoma 6. If instructed by your ostomy nurse stretch barrier seal to the size of the stoma and press onto skin around stoma (up to the edge of the stoma but not onto the stoma) 7. Press the new pouch into place and hold for several seconds (close pouch tail) 8. Empty pouch when 1/3 to 1/2 full 9. Change pouch twice weekly on a schedule (for example, every Tuesday and ) and as needed for any leaking (feels like intense itch or burn at edge of stoma) 10. May order pre-cut pouches (already cut to size of stoma) once stoma measures the same size consistently at about 8-12 weeks.
--- NOTE | 2025-03-20 15:57 | MHC.CM.PN ---
Ostomy supply details have been faxed to Mirna @ [facility] @ fax # [phone].
--- NOTE | 2025-03-20 17:28 | HO.PM.IMPN ---
Subjective Subjective Date of Service: 03/21/25 Interval History: Fatigued and asleep the majority of the morning. Awake by afternoon, without any complaints. Eating and drinking well. The patient is CHF exacerbation from yesterday has resolved. ALVIN drain unremarkable without significant bleeding. Abdominal examination unremarkable without significant distention or ecchymosis. Blood work this a.m. returning with hemoglobin of 6.8, leukocytosis 16.2. Creatinine 1.15, with sodium 146, and mild hypokalemia of 3.2. Review of Systems Review of Systems: Yes Unobtainable due to mental condition and Unobtainable due to mental status Physical Exam Exam: Exam: General: A&O x3, oriented to time place person and situation, comfortable, no pain Cardiac: S1, S2 auscultated with no S3/4, no MRG. Well perfused. Respiratory: normal respiratory rate, decreased breath sounds at the bases bilaterally, with improved aeration at the bases. No upper respiratory wheezing. GI/ : Abdomen distended, soft, tender with coughing, colostomy present, with dark brown stool MSK: Normal ambulation without pain at bony prominences or musculature Neurological: Normal neurological examination on overview, without obvious CN II-XII abnormalities. Vital Signs: Vital Signs: Last Vital Signs Temp 97.7 F 03/20/25 15:31 Pulse 53 03/20/25 15:31 Resp 16 03/20/25 15:31 BP 106/63 03/20/25 15:31 Pulse Ox 93 03/20/25 15:31 O2 Del Method Room Air 03/20/25 15:31 O2 Flow Rate 1 03/20/25 11:04 BMI result Body Mass Index 23.4 Objective Data Active Medications Atorvastatin Calcium (Atorvastatin Calcium 20 Mg Tablet) 20 mg PO BEDTIME [facility] Last Admin: 03/19/25 22:29 Dose: 20 mg Documented By: SHERIDAN Piperacillin Sod/Tazobactam (Sod 3.375 gm/ Sodium Chloride) 50 mls @ 100 mls/hr IV Q6H [facility] Last Infusion: 03/20/25 17:02 Dose: Infused Documented By: WADE Metoprolol Tartrate (Metoprolol Tartrate 5 Mg/5 Ml Vial) 5 mg IVPUSH Q6H PRN; Protocol PRN Reason: HR > 110 Metoprolol Tartrate (Metoprolol Tartrate 25 Mg Tablet) 25 mg PO BID [facility]; Protocol Last Admin: 03/20/25 11:21 Dose: 25 mg Documented By: WADE Morphine Sulfate (Morphine Sulfate 4 Mg/Ml Cartridge) 2 mg IVPUSH Q3H PRN; Protocol PRN Reason: Pain, Severe (Pain Scale 7-10) Last Admin: 03/20/25 16:27 Dose: 2 mg Documented By: WADE Ondansetron HCl (Ondansetron Hcl 4 Mg/2 Ml Vial) 4 mg IVPUSH Q8H PRN PRN Reason: Nausea and Vomiting Pantoprazole Sodium (Pantoprazole Sodium 40 Mg/10 Ml Vial) 40 mg IVPUSH DAILY@0630 [facility] Last Admin: 03/20/25 06:31 Dose: 40 mg Documented By: SHERIDAN Sodium Chloride (0.9 % Sodium Chloride Flush 3 Ml Syringe) 3 ml IVFLUSH QSHIFT [facility] Last Admin: 03/20/25 17:01 Dose: Not Given Documented By: WADE Non-Admin Reason: Previously Administered Tamsulosin HCl (Tamsulosin Hcl 0.4 Mg Capsule) 0.4 mg PO BEDTIME [facility] Last Admin: 03/19/25 22:29 Dose: 0.4 mg Documented By: SHERIDAN Labs 03/20/25 18:20 03/20/25 18:20 Labs: Laboratory Results - last 24 hr 03/19/25 03/20/25 16:03 09:36 MCV 82.4 MCH 25.0 L MCHC 30.4 L RDW 16.3 H Plt Count 269 MPV 9.4 Immature Gran % (Auto) 0.7 H Neut % (Auto) 85.1 H Lymph % (Auto) 9.9 L [place] % (Auto) 3.5 Eos % (Auto) 0.7 Baso % (Auto) 0.1 Lymph # (Auto) 1.6 [place] # (Auto) 0.6 Eos # (Auto) 0.1 Baso # (Auto) 0.0 Abs Immat Gran (auto) 0.11 H Absolute Neuts (auto) 13.8 H Absolute Nucleated RBC 0.000 Nucleated RBC % (auto) 0.0 Anion Gap 12 Estim Creat Clear Calc 41.5 Estimated GFR > 60 Random Glucose 106 Calcium 8.0 L Respiratory Panel Hunt See Note Adenovirus (Rapid PCR) Not Detected B.pert (TEM-PCR) Not Detected B.parapertussis DNA PCR Not Detected C. pneumoniae DNA (PCR) Not Detected Coronavirus OC43 (PCR) Not Detected Coronavirus HKU1 (PCR) Not Detected Coronavirus 229E (PCR) Not Detected Coronavirus NL63 (PCR) Not Detected Human Metapneumovir PCR Not Detected Influenza A (RT-PCR) Not Detected Influenza A (H1) PCR Not Detected Influ A (H1/09) PCR Not Detected Influenza A (H3) PCR Not Detected Influenza B (RT-PCR) Not Detected M. pneumoniae (PCR) Not Detected Parainfluenza 1 (PCR) Not Detected Parainfluenza 2 (PCR) Not Detected Parainfluenza 3 (PCR) Not Detected Parainfluenza 4 (PCR) Not Detected RSV (PCR) Not Detected Entero/Rhino (PCR) Not Detected SARS-CoV-2 RNA (RT-PCR) Not Detected Microbiology Microbiology Results: Microbiology 03/15/25 Unknown Gram Stain - Final Peritoneal Fluid Routine Culture - Final Escherichia coli Viridans streptococcus group Anaerobic Culture - Final Clostridium clostridiiforme Eubacterium limosum 03/14/25 15:54 Blood Culture - Final Blood - Venous No growth after 5 days. Assessment and Plan (1) HTN (hypertension): Status: Acute (2) CHF (congestive heart failure): Status: Acute (3) A-fib: Status: Acute (4) HLD (hyperlipidemia): Status: Acute (5) Small bowel perforation: Status: Acute (6) Bowel perforation: Status: Acute (7) RIOS (acute kidney injury): Status: Acute (8) BPH (benign prostatic hyperplasia): Status: Acute (9) Gram-negative bacteremia: Status: Acute (10) Severe sepsis: Status: Acute (11) Dementia: Status: Acute (12) Delirium: Status: Acute (13) Hypokalemia: Status: Acute (14) Hypernatremia: Status: Acute (15) Acute anemia: Status: Acute Plan 89 yo male from the [facility] with a pmhx significant for dementia, a fib on eliquis, HTN, CHF, HLD and BPH, who presented to the ED due to abd pain and chest pain x4 hours and found to have perforated viscus complicated by severe sepsis & acute CHF exacerbation. Perforated viscus with Severe sepsis peritonitis' s/p ex-lap, colectomy and colostomy on 03/15 blood culture and peritoneal culture growing E.coli and Strep Viridan Continue IV Zosyn covers E.coli, Strep Viridan and also anerobe, when ready for DC can change to PO Augmentin Diet per surgery Pain medication. Incentive spirometry ID consult ordered, recommendations greatly appreciated Acute anemia Progressively worsening hemoglobin, currently 6.8 mg/dL. Decreased by 1 mg/dL compared to yesterday. No overt source of bleeding, other than possible new colostomy/ GI tract. We consented the patient over the telephone for blood transfusion. Type and screen was ordered, repeat CBC ordered. PLAN - pantoprazole 40 mg b.i.d. IV to address possible UGIB if present - pending type and screen - pending repeat CBC - transfuse hemoglobin to > 8 mg/dL - at risk for TACO; will require furosemide 10 mg IV between each transfusion (if receiving more than 1) Leukocytosis Continue to monitor closely If pyrexia, obtain blood cultures and expand antibiotic coverage Possible stress-induced Hypernatremia Increase in sodium from 140-146. This is borderline at this time Repeat BMP If continues to increase, initiate D5W 75 cc/hour for 500 cc total Agitation and combativeness Dementia Patient has baseline dementia, that has been worsened acutely by metabolic encephalopathy. Unfortunately, the patient has become significantly combative. Patient has a baseline right bundle branch block therefore falsely prolonging QTC. QTC 420-460 milliseconds Within safe range Intramuscular olanzapine 2.5 mg suffices to reduce patient's combativeness New cough and tachypnea Impression of possible acute CHF exacerbation / superimposed URI - RESOLVED Patient has elevated JVP bilateral, with reduced breath sounds at the bases. Patient has a congested-sounding cough, which could be 2/2 superimposed URI Elevated NT proBNP Respiratory viral panel in process Improved with furosemide 20 mg IV once. RIOS, suspect ATN from sepsis, resolved IVF, avoid nephrotoxin and follow renal function closely Delirium and metabolic encephalopathy --likely multifactorial d/t sepsis, RIOS, anesthetics monitor closely, presntly has sitter Acute lactic acidosis, secondary to severe sepsis lactic trended down 4.1-->2.7 IVF Anemia, post op, H/H stable, no indication for transfusion Transfuse for Hgb <8.0mg/dl UTI zosyn as above follow urine culture a fib with RVR, likely triggered by sepsis IV Metoprolol PRN for RVR, start schedule oral metoprolol 25 bid, resume eliquis when ok with surgery, probably tomorrow HLD HTN Losartan and Norvasc on hold, if peristant high may restart one at a time, starting with Norvasc, starting metoprolol as above BPH hold flomax due tohypotension resume when stable after surgery QUALITY METRICS - VTE: SCDs - CODE STATUS: DNR/DNI - DIET: NPO currently Total time managing care of this patient today: 45 minutes. Quality Stroke Does the patient have a stroke diagnosis?: No VTE Prior VTE?: No VTE Risk Level:: Surgical - low VTE Device Contraindication: N/A - Device Ordered VTE Drug Contraindication: Treatment Not Indicated
--- NOTE | 2025-03-20 17:39 | PM.IDPN ---
Subjective Subjective Date of Service: 03/20/25 Critical Care Time (minutes): 15 Comment: he has cough no fever at this time Objective Data Labs 03/20/25 09:36 03/20/25 09:36 Labs: Laboratory Results - last 24 hr 03/19/25 03/20/25 16:03 09:36 WBC 16.2 H RBC 2.72 L Hgb 6.8 L* Hct 22.4 L MCV 82.4 MCH 25.0 L MCHC 30.4 L RDW 16.3 H Plt Count 269 MPV 9.4 Immature Gran % (Auto) 0.7 H Neut % (Auto) 85.1 H Lymph % (Auto) 9.[address] [place] % (Auto) 3.5 Eos % (Auto) 0.7 Baso % (Auto) 0.1 Lymph # (Auto) 1.6 [place] # (Auto) 0.6 Eos # (Auto) 0.1 Baso # (Auto) 0.0 Abs Immat Gran (auto) 0.11 H Absolute Neuts (auto) 13.8 H Absolute Nucleated RBC 0.000 Nucleated RBC % (auto) 0.0 Sodium 146 H Potassium 3.2 L Chloride 113 H Carbon Dioxide 24 Anion Gap 12 BUN 28 H Creatinine 1.15 Estim Creat Clear Calc 41.5 Estimated GFR > 60 Random Glucose 106 Calcium 8.0 L Respiratory Panel [place] See Note Adenovirus (Rapid PCR) Not Detected B.pert (TEM-PCR) Not Detected B.parapertussis DNA PCR Not Detected C. pneumoniae DNA (PCR) Not Detected Coronavirus OC43 (PCR) Not Detected Coronavirus HKU1 (PCR) Not Detected Coronavirus 229E (PCR) Not Detected Coronavirus NL63 (PCR) Not Detected Human Metapneumovir PCR Not Detected Influenza A (RT-PCR) Not Detected Influenza A (H1) PCR Not Detected Influ A (H1/09) PCR Not Detected Influenza A (H3) PCR Not Detected Influenza B (RT-PCR) Not Detected M. pneumoniae (PCR) Not Detected Parainfluenza 1 (PCR) Not Detected Parainfluenza 2 (PCR) Not Detected Parainfluenza 3 (PCR) Not Detected Parainfluenza 4 (PCR) Not Detected RSV (PCR) Not Detected Entero/Rhino (PCR) Not Detected SARS-CoV-2 RNA (RT-PCR) Not Detected Microbiology Microbiology Results: Microbiology 03/15/25 Unknown Peritoneal Fluid Gram Stain - Final 03/15/25 Unknown Peritoneal Fluid Routine Culture - Final Escherichia coli Viridans streptococcus group 03/15/25 Unknown Peritoneal Fluid Anaerobic Culture - Final Clostridium clostridiiforme Eubacterium limosum 03/14/25 15:54 Blood - Venous Blood Culture - Final No growth after 5 days. 03/14/25 15:50 Blood - Venous Blood Culture - Preliminary Prelim: GNR Gram Stain only 03/14/25 21:15 Urine clean catch - Clean Catch Midstream Urine Culture - Final No growth. Physical Exam Vital Signs: Vital Signs: Last Vital Signs Temp 97.7 F 03/20/25 15:31 Pulse 53 03/20/25 15:31 Resp 16 03/20/25 15:31 BP 106/63 03/20/25 15:31 Pulse Ox 93 03/20/25 15:31 O2 Del Method Room Air 03/20/25 15:31 O2 Flow Rate 1 03/20/25 11:04 BMI result Body Mass Index 23.4 Const: General: cooperative HEENT: Head: Yes normal to inspection Face and sinus: Yes normal facial exam Mouth: Normal oral and palatal mucosa present Teeth and gingiva: dentition normal Eyes: General: appearance normal, both eyes and all related structures Pupils: Equal, round and reactive pupils present Resp: Effort & Inspection: normal respiratory effort Cardio: Rate: regular rate Rhythm: regular rhythm GI: Palpation (GI): Soft to palpation and nontender : General: Yes no CVA tenderness Back/Spine/Pelvis: Back: no CVA tenderness Skin: General skin exam: no rashes or lesions noted Neuro: General: moves all extremities Cranial nerves: Yes Equal, round and reactive pupils present Extrem: General: Yes normal to inspection Psych: Appearance: grossly normal Assessment and Plan Assessment and plan (1) Small bowel perforation: Problem details: atelectasis right lung base Status: Acute Assessment and Plan: He has cough. He is on zosyn covers most gram negative organisms if still concern check MRSA PCR nose tomorrow. Continue zosyn and then likely Augmentin Time Spent With Patient Time: Total time managing care of this patient today ____ minutes.
[2025-03-20 18:55] LABS: Anion Gap 12 (12-20); Blood Urea Nitrogen 30 mg/dL (9-16); Calcium 7.9 mg/dL (8.4-10.2); Carbon Dioxide 24 mmol/L (22-29); Chloride 114 mmol/L (96-108); Creatinine Clr Calc Pharmacy 41.5; Estimated Glomerular Filt Rate > 60; Potassium 3.3 mmol/L (3.3-5.1); Sodium 147 mmol/L (135-145)
[2025-03-20 19:15] LABS: Hematocrit 23.1 % (42.0-52.0); Hemoglobin 7.2 g/dl (14.0-18.0); Imm Gran Abs Auto 0.13 X10*3/uL (0.00-0.03); Imm Gran Pct Auto 0.7 % (0.0-0.4); Lymphocytes Absolute Auto 2.0 X10*3/uL (1.2-4.9); MANUAL DIFF FLAG SCAN; Mean Corpuscular HGB Conc 31.2 g/dl (31.0-36.0); Mean Corpuscular Hemoglobin 25.3 pg (27.0-33.0); Mean Corpuscular Volume 81.1 fL (80.0-98.0); NRBC Abs Auto 0.040 X10*3/uL (0.0-0.012); NRBC Pct Auto 0.2 /100WBC (0.0-0.2); PLT CLUMP 1; Red Blood Count 2.85 X10*6/uL (4.60-5.80); SCAN SMEAR FLAG 1
[2025-03-20 19:26] LABS: White Blood Count 19.7 X10*3/uL (4.8-10.8)
[2025-03-20] MEDS: OLANZapine 10 MG VIAL 5 MG IM (21:24)
[2025-03-21] VITALS (9 sets, daily range): BP systolic 131–157; BP diastolic 56–89; PULSE 75–117; RESP 14–26; TEMP 36.2–37.4; O2SAT 90–97
[2025-03-21] MEDS: 0.9 % Sodium Chloride Flush 3 ML SYRINGE IVFLUSH ×2 (03:09→21:06)
[2025-03-21 07:38] LABS: MANUAL DIFF FLAG NO
--- NOTE | 2025-03-21 07:38 | PM.PNGS ---
Subjective Subjective Date of Service: 03/21/25 <Eileen Jack PA-C - Last Filed: 03/21/25 07:55> 03/21/25 <Stas Juarez MD - Last Filed: 03/21/25 08:03> Interval history: Remains agitated and combative with staff. Appears slightly more alert this morning, asking for food and is hungry. However continues to refuse an exam for the most part. <Eileen Jack PA-C - Last Filed: 03/21/25 07:55> Physical Exam Vital Signs: Vital Signs: Last Vital Signs Temp 97.2 F 03/21/25 07:32 Pulse 79 03/21/25 07:32 Resp 18 03/21/25 07:32 BP 134/70 03/21/25 07:32 Pulse Ox 90 L 03/21/25 07:32 O2 Del Method Room Air 03/21/25 07:32 O2 Flow Rate 1 03/20/25 19:10 BMI result Body Mass Index 23.4 <Eileen Jack PA-C - Last Filed: 03/21/25 07:55> Const: General: comfortable, no acute distress and tired appearing <Eileen Jack PA-C - Last Filed: 03/21/25 07:55> Resp: Other: some increased work of breathing <Eileen Jack PA-C - Last Filed: 03/21/25 07:55> Effort & Inspection: not tachypneic <Eileen Jack PA-C - Last Filed: 03/21/25 07:55> GI: Other: soft, remains mildly distended incision clean with some sanguineous drainage ostomy pink, dark tarry stools in appliance ALVIN more serous appearing <Eileen Jack PA-C - Last Filed: 03/21/25 07:55> Palpation (GI): Tenderness to palpation present (GI) (mild incisional) and not rigid <CARLITOS Ayala Last Filed: 03/21/25 07:55> Percussion: Yes tympanic to percussion <CARLITOS Ayala Last Filed: 03/21/25 07:55> Skin: Other: warm and dry <Eileen Jack PA-C - Last Filed: 03/21/25 07:55> Extrem: Other: upper extremities with multiple superficial skin tears <Eileen Jack PA-C - Last Filed: 03/21/25 07:55> Objective Data Active Medications Atorvastatin Calcium (Atorvastatin Calcium 20 Mg Tablet) 20 mg PO BEDTIME [facility] Last Admin: 03/20/25 21:21 Dose: Not Given Documented By: SHAWNA Non-Admin Reason: Agitation Piperacillin Sod/Tazobactam (Sod 3.375 gm/ Sodium Chloride) 50 mls @ 100 mls/hr IV Q6H [facility] Last Infusion: 03/21/25 03:39 Dose: Infused Documented By: SHAWNA Metoprolol Tartrate (Metoprolol Tartrate 5 Mg/5 Ml Vial) 5 mg IVPUSH Q6H PRN; Protocol PRN Reason: HR > 110 Metoprolol Tartrate (Metoprolol Tartrate 25 Mg Tablet) 25 mg PO BID [facility]; Protocol Last Admin: 03/20/25 21:22 Dose: Not Given Documented By: SHAWNA Non-Admin Reason: Agitation Morphine Sulfate (Morphine Sulfate 4 Mg/Ml Cartridge) 2 mg IVPUSH Q3H PRN; Protocol PRN Reason: Pain, Severe (Pain Scale 7-10) Last Admin: 03/20/25 16:27 Dose: 2 mg Documented By: WADE Ondansetron HCl (Ondansetron Hcl 4 Mg/2 Ml Vial) 4 mg IVPUSH Q8H PRN PRN Reason: Nausea and Vomiting Pantoprazole Sodium (Pantoprazole Sodium 40 Mg/10 Ml Vial) 40 mg IVPUSH DAILY@0630 [facility] Last Admin: 03/21/25 06:15 Dose: 40 mg Documented By: SHAWNA Sodium Chloride (0.9 % Sodium Chloride Flush 3 Ml Syringe) 3 ml IVFLUSH QSHIFT [facility] Last Admin: 03/21/25 03:09 Dose: 3 ml Documented By: SHAWNA Tamsulosin HCl (Tamsulosin Hcl 0.4 Mg Capsule) 0.4 mg PO BEDTIME [facility] Last Admin: 03/20/25 21:22 Dose: Not Given Documented By: SHAWNA Non-Admin Reason: Agitation <CARLITOS Ayala Last Filed: 03/21/25 07:55> Labs CBC & Chem 7: 03/21/25 07:33 03/21/25 07:33 <Eileen Jack PA-C - Last Filed: 03/21/25 07:55> Labs: Laboratory Results - last 24 hr 03/19/25 03/20/25 03/20/25 16:03 09:36 18:20 MCV 82.4 81.1 MCH 25.0 L 25.3 L MCHC 30.4 L 31.2 RDW 16.3 H 16.3 H Plt Count 269 TNP MPV 9.4 9.9 Immature Gran % (Auto) 0.7 H 0.7 H Neut % (Auto) 85.1 H 85.6 H Lymph % (Auto) 9.9 L 10.2 L Coles % (Auto) 3.5 2.5 Eos % (Auto) 0.7 0.8 Baso % (Auto) 0.1 0.2 Lymph # (Auto) 1.6 2.0 Coles # (Auto) 0.6 0.5 Eos # (Auto) 0.1 0.2 Baso # (Auto) 0.0 0.0 Abs Immat Gran (auto) 0.11 H 0.13 H Absolute Neuts (auto) 13.8 H 16.9 H Absolute Nucleated RBC 0.000 0.040 H Nucleated RBC % (auto) 0.0 0.2 Smear Tech's Comments VERIFIED Anion Gap 12 12 Estim Creat Clear Calc 41.5 41.5 Estimated GFR > 60 > 60 Random Glucose 106 100 Calcium 8.0 L 7.9 L Respiratory Panel Hunt See Note Adenovirus (Rapid PCR) Not Detected B.pert (TEM-PCR) Not Detected B.parapertussis DNA PCR Not Detected C. pneumoniae DNA (PCR) Not Detected Coronavirus OC43 (PCR) Not Detected Coronavirus HKU1 (PCR) Not Detected Coronavirus 229E (PCR) Not Detected Coronavirus NL63 (PCR) Not Detected Human Metapneumovir PCR Not Detected Influenza A (RT-PCR) Not Detected Influenza A (H1) PCR Not Detected Influ A (H1/09) PCR Not Detected Influenza A (H3) PCR Not Detected Influenza B (RT-PCR) Not Detected M. pneumoniae (PCR) Not Detected Parainfluenza 1 (PCR) Not Detected Parainfluenza 2 (PCR) Not Detected Parainfluenza 3 (PCR) Not Detected Parainfluenza 4 (PCR) Not Detected RSV (PCR) Not Detected Entero/Rhino (PCR) Not Detected SARS-CoV-2 RNA (RT-PCR) Not Detected Blood Type O Positive Antibody Screen NEGATIVE Crossmatch See Detail <Eileen Jack PA-C - Last Filed: 03/21/25 07:55> Microbiology Microbiology Results: Microbiology 03/15/25 Unknown Gram Stain - Final Peritoneal Fluid Routine Culture - Final Escherichia coli Viridans streptococcus group Anaerobic Culture - Final Clostridium clostridiiforme Eubacterium limosum <Eileen Jack PA-C - Last Filed: 03/21/25 07:55> Procedures Date of Service Date of Service: 03/21/25 <Eileen Jack PA-C - Last Filed: 03/21/25 07:55> 03/21/25 <Stas Juarez MD - Last Filed: 03/21/25 08:03> Progress Note: A&P Assessment and plan (1) Bowel perforation: Status: Acute <Eileen Jack PA-C - Last Filed: 03/21/25 07:55> Assessment and Plan: Mental status remains the same Periodically wakes up and has verbal output Says he is hungry and asking for food this morning Abdomen is soft and benign Good stoma output H&H has drifted WBC increasing Okay to do CAT scan of the abdomen and pelvis - patient was at high risk for abscess in view of perforated diverticulitis Okay advance diet as tolerated otherwise although patient seems to be with aspiration risks We will follow Seen and examined independently <Stas Juarez MD - Last Filed: 03/21/25 08:03> Assessment and Plan: POD #5 s/p exploratory laparotomy with Clarissa procedure. Remains agitated and combative with staff. This morning he appears somewhat more alert asking for food and reporting he is hunrgy. Abd remains overall benign, incision clean. ALVIN drain continued to be more serous appearing. Ostomy continues to function however output is suggestive of melena and H/H was slowly drifting down, ?Gi bleed. He was transfused 1U PRBC overnight for Hgb <8. H/H with appropriate rise this morning. Leukocytosis again yesterday on labs and increased this am. Will obtain CT scan abd pelvis to r/o abscess. Appreciate hospitalist input and medical management. Cont IV zosyn. Obtain swallow eval - ok to advance as per recommendations. Phlebotomy unable to draw off upper extremities due to lack of veins and multiple skin tears with dressings in place. Ok to draw from lower extremity. <Eileen Jack PA-C - Last Filed: 03/21/25 07:55> Time Spent With Patient Time: Total time managing care of this patient today ____ minutes. <Eileen Jack PA-C - Last Filed: 03/21/25 07:55> Quality Stroke Does the patient have a stroke diagnosis?: No <Eileen Jack PA-C - Last Filed: 03/21/25 07:55> VTE Prior VTE?: No <Eileen Jack PA-C - Last Filed: 03/21/25 07:55> VTE Risk Level:: Surgical - low <Eileen Jack PA-C - Last Filed: 03/21/25 07:55> VTE Device Contraindication: N/A - Device Ordered <Eileen Jack PA-C - Last Filed: 03/21/25 07:55> VTE Drug Contraindication: Treatment Not Indicated <Eileen Jack PA-C - Last Filed: 03/21/25 07:55>
[2025-03-21 07:43] LABS: Hematocrit 28.0 % (42.0-52.0); Hemoglobin 8.7 g/dl (14.0-18.0); Imm Gran Abs Auto 0.24 X10*3/uL (0.00-0.03); Imm Gran Pct Auto 1.1 % (0.0-0.4); Lymphocytes Absolute Auto 2.2 X10*3/uL (1.2-4.9); Mean Corpuscular HGB Conc 31.1 g/dl (31.0-36.0); Mean Corpuscular Hemoglobin 25.1 pg (27.0-33.0); Mean Corpuscular Volume 80.9 fL (80.0-98.0); NRBC Abs Auto 0.030 X10*3/uL (0.0-0.012); NRBC Pct Auto 0.1 /100WBC (0.0-0.2); Platelet Count 276 X10*3/uL (160-400); Red Blood Count 3.46 X10*6/uL (4.60-5.80); White Blood Count 22.3 X10*3/uL (4.8-10.8)
[2025-03-21 07:55] LABS: Anion Gap 13 (12-20); Blood Urea Nitrogen 29 mg/dL (9-16); Calcium 7.9 mg/dL (8.4-10.2); Carbon Dioxide 22 mmol/L (22-29); Chloride 117 mmol/L (96-108); Creatinine Clr Calc Pharmacy 46.8; Estimated Glomerular Filt Rate > 60; Potassium 3.0 mmol/L (3.3-5.1); Sodium 149 mmol/L (135-145)
[2025-03-21] MEDS: Furosemide 20 MG/2 ML VIAL IVPUSH ×2 (12:05→18:10)
[2025-03-21] MEDS: Potassium Chloride Packet 20 MEQ PACKET 40 MEQ PO (12:10)
--- NOTE | 2025-03-21 12:19 | HO.WOUND ---
Wound Consult: Initial 89yr old male admitted to [facility] on 03/14/25 - See progress notes and H&P for detailed history. Wound consult placed for skin tears. Patient agreeable to assessment and photo documentation. Left hand/arm Right hand/arm Etiology: skin tears Wound Bed: moist pink Drainage / Odor: scant serosanguineous no odor Eyad wound: ? No Induration, Fluctuance or Warmth noted Pain: none Goals of Treatment: ? moist healing with xeroform bilateral heels intact blanching, mildly boggy- heel foams placed Recommendations: 1. Turn and Reposition every 2 hours and as needed for patient comfort. Use pillows or wedges to support off loading positions. 2. Off Load all bony prominences with use of pillows and heel boots if needed. Apply Preventative foams where needed. 3. Monitor for incontinence and moisture control, use barrier creams when needed for prevention and treatment. 4. Provide adequate and supplemental nutrition. 5. Order or Continue low air loss mattress. 6. When applicable maintain blood glucose levels per Providers order. Bilateral arm skin tears: cleanse with saline, pat dry, apply skin prep eyad wound, apply xeroform to wound bed, cover with gauze/abd, wrap with rolled gauze, change daily and PRN Re-consult wound care Nurse for wound deterioration or wound changes.
--- NOTE | 2025-03-21 12:24 | HO.OSTOMY ---
Ostomy Consult: Follow up 89yr old male admitted to [facility] on 03/14/25 - see H&P for detailed history and admission.? Consult for new ostomy teaching. ?He had Colostomy creation on 03/16/[address] Gil. ?Upon entry into patient's room, patient is in his recliner chair, awake, pleasant and agreeable to assessment and pouch change. Pouch assessed to be intact and no leaking noted however last pouch change was tuesday therefore pouch change completed. Patient is confused and not appropriate for teaching. Peristomal bruising improving and midline remains intact. Midline dressing changed to reveal well approximated intact with mainly serousanguinous drainage and some creamy yellow drainage at the inferior portion of the incision. Stoma is red moist round, MCJ intact. Liquid brown output. ALVIN draine with pink tinged clear fluid 100cc emptied. Inpatient will continue to follow along for readiness. Stoma 03/18/25 03/21/25 Coloplast 1 piece pouch #[id number] applied cut to 35 round applied without complication. Stoma is budded above skin line no pouching concerned noted at this time. Recommend the following steps: 1. Empty pouch before pouch change 2. Remove pouch using push/pull technique from top to bottom 3. Cleanse stoma and skin with tap water only - no soap or wipes 4. Pat dry 5. Measure stoma and cut new pouch no more than 1/8 inch larger than stoma and no smaller than stoma 6. If instructed by your ostomy nurse stretch barrier seal to the size of the stoma and press onto skin around stoma (up to the edge of the stoma but not onto the stoma) 7. Press the new pouch into place and hold for several seconds (close pouch tail) 8. Empty pouch when 1/3 to 1/2 full 9. Change pouch twice weekly on a schedule (for example, every Tuesday and ) and as needed for any leaking (feels like intense itch or burn at edge of stoma) 10. May order pre-cut pouches (already cut to size of stoma) once stoma measures the same size consistently at about 8-12 weeks.
--- NOTE | 2025-03-21 12:58 | PC.NURSE ---
MD at bedside and the crackles are pretty much baseline and he was not overly concerned.
[2025-03-21] MEDS: Nystatin Oral Susp 500,000 UNIT/5 ML ORAL.SUSP 400000 UNIT BUCCAL ×2 (13:52→21:05)
--- NOTE | 2025-03-21 14:07 | MHC.SL.SWA ---
Speech Pathologist Impression: Risk of Aspiration Due to: Moderate oral phase dysphagia, vulnerable respiratory system, confusion. Dysphasia Diet Status: Liquid Consistency and Strategies for Safe Swallow: Liquid Intake Recommendation: Thin Liquid Intake Strategies: Solid Food Consistency: Dietary Recommendations: Pureed (NDD1) Additional Modifications to Solid Foods: Oral Medication Intake: Crushed with Puree Please contact the pharmacy regarding appropriate crushable or liquid drug formulations that are available whenever modified delivery is recommended. Compensatory Strategies and Precautions to be Taken for Safe Swallow: Supervision While Eating and Drinking for Safe Swallow: Total Assistance (1:1) Foods to Avoid: Mixed consistencies, tough, difficult to chew solids. Swallowing Recommended Treatments: Recommendation for Speech: Inpatient Speech Therapy Speech Therapy through [facility] Speech Therapy through Rehab Facility Comment: Patient presents with a moderate oral phase dysphagia, vulnerable respiratory system and high level of confusion as risk factors for aspiration. Patient tolerates thin liquids by controlled cup sip only, and purees currently; on evaluation today patient confused and averse to ground textures attempted. Patient is also edentulous, current dentures don't fit and he does not tolerate them. Recommend UPGRADE diet from Clear Liquids to PUREE (NDD1), continue on thin liquids, pills crushed in puree. BOTTOM FINISHER will continue to follow, assess for tolerance of diet and upgrade as indicated. , RD notified by secure text, RN and Sitter in person. Frequency/Duration: Date Range for Service Req: Timeline to reassess: Wine Merchant Clinican/Clinical Fellow: No Supervisory Statement: I have reviewed and agree with the student/clinical fellow's documentation: N/A Speech Language Pathologist: Rosa Moran M.A., [facility]
[2025-03-21 14:59] LABS: Anion Gap 14 (12-20); Blood Urea Nitrogen 27 mg/dL (9-16); Calcium 7.9 mg/dL (8.4-10.2); Carbon Dioxide 19 mmol/L (22-29); Chloride 117 mmol/L (96-108); Creatinine Clr Calc Pharmacy 44.2; Estimated Glomerular Filt Rate > 60; Potassium 3.9 mmol/L (3.3-5.1); Sodium 146 mmol/L (135-145)
--- NOTE | 2025-03-21 15:03 | PM.EVENT ---
Event Note Date of Service: 03/21/25 Event Note: Seen earlier on afternoon rounds Sitting up on recliner Seems to be comfortable Asking for food Nursing staff says that he was ?gurgling? with liquids earlier He seems to be at risk for aspiration Consider parenteral nutrition in the meantime Stoma functioning well Abdomen remains soft and benign Time Spent With Patient Time: Total time managing care of this patient today ____ minutes.
--- NOTE | 2025-03-21 17:18 | P.PNIM_ITS ---
Subjective Subjective Date of Service: 03/21/25 Interval History: Overnight events reviewed; Patient received 1 unit PRBC last night This morning Communicative, awake in bed earlier today. Mild crepitations - received furosemide 20 mg IV No other complaints This evening patient desaturated to 88%, placed on 6 L O2, upgraded to high-flow NC. Patient noted to be diffusely rhonchorous, with tachypnea and dyspnea. MOLST form reviewed with the patient's primary and secondary contact (daughters) - chest x-ray ordered - Lab work ordered - furosemide 20 mg IV ordered - high-flow ordered - MOLST form reviewed with family members Review of Systems Review of Systems: Yes Unobtainable due to mental condition and Unobtainable due to mental status Physical Exam 2 Exam: Exam: General: A&O x1 to person only, not to time, place or situation. Cardiac: S1, S2 auscultated with no S3/4, no MRG. Well perfused. Tachycardic Respiratory: Decreased breath sounds in the bases bilaterally, with crepitations and crackles auscultated throughout all lung zones, tachypneic and dyspneic, no peripheral or central cyanosis GI/ : Abdomen distended, soft, tender with coughing, colostomy present, with dark brown stool MSK: Normal ambulation without pain at bony prominences or musculature Neurological: Normal neurological examination on overview, without obvious CN II-XII abnormalities. Vital Signs: Vital Signs: Last Vital Signs Temp 97.5 F 03/21/25 16:00 Pulse 103 H 03/21/25 16:00 Resp 26 H 03/21/25 16:58 BP 157/70 H 03/21/25 16:00 Pulse Ox 92 03/21/25 16:00 O2 Del Method Nasal Cannula 03/21/25 16:00 O2 Flow Rate 2 03/21/25 16:00 BMI result Body Mass Index 23.4 Objective Data Active Medications Atorvastatin Calcium (Atorvastatin Calcium 20 Mg Tablet) 20 mg PO BEDTIME [facility] Last Admin: 03/20/25 21:21 Dose: Not Given Documented By: SHAWNA Non-Admin Reason: Agitation Piperacillin Sod/Tazobactam (Sod 3.375 gm/ Sodium Chloride) 50 mls @ 100 mls/hr IV Q6H [facility] Last Infusion: 03/21/25 09:00 Dose: Infused Documented By: ELAN Dextrose (D5w) 1,000 mls @ 75 mls/hr IVCONT .[id number] [facility] Stop: 03/21/25 21:49 Last Infusion: 03/21/25 16:36 Dose: 0 mls/hr Documented By: BECKY Metoprolol Tartrate (Metoprolol Tartrate 5 Mg/5 Ml Vial) 5 mg IVPUSH Q6H PRN; Protocol PRN Reason: HR > 110 Metoprolol Tartrate (Metoprolol Tartrate 25 Mg Tablet) 25 mg PO BID [facility]; Protocol Last Admin: 03/21/25 08:24 Dose: 25 mg Documented By: ELAN Morphine Sulfate (Morphine Sulfate 4 Mg/Ml Cartridge) 2 mg IVPUSH Q3H PRN; Protocol PRN Reason: Pain, Severe (Pain Scale 7-10) Last Admin: 03/20/25 16:27 Dose: 2 mg Documented By: WADE Nystatin (Nystatin Oral Susp 500,000 Unit/5 Ml Oral.Susp) 400,000 unit BUCCAL QID [facility]; Protocol Last Admin: 03/21/25 16:37 Dose: Not Given Documented By: BECKY Non-Admin Reason: NPO Ondansetron HCl (Ondansetron Hcl 4 Mg/2 Ml Vial) 4 mg IVPUSH Q8H PRN PRN Reason: Nausea and Vomiting Pantoprazole Sodium (Pantoprazole Sodium 40 Mg/10 Ml Vial) 40 mg IVPUSH DAILY@0630 [facility] Last Admin: 03/21/25 06:15 Dose: 40 mg Documented By: SHAWNA Sodium Chloride (0.9 % Sodium Chloride Flush 3 Ml Syringe) 3 ml IVFLUSH QSHIFT [facility] Last Admin: 03/21/25 16:37 Dose: Not Given Documented By: BECKY Non-Admin Reason: no access Tamsulosin HCl (Tamsulosin Hcl 0.4 Mg Capsule) 0.4 mg PO BEDTIME [facility] Last Admin: 03/20/25 21:22 Dose: Not Given Documented By: SHAWNA Non-Admin Reason: Agitation Labs 03/21/25 07:33 03/21/25 14:26 Labs: Laboratory Results - last 24 hr 03/20/25 03/20/25 03/21/25 09:36 18:20 07:33 MCV 81.1 80.9 MCH 25.3 L 25.1 L MCHC 31.2 31.1 RDW 16.3 H 16.5 H Plt Count TNP 276 MPV 9.9 9.4 Immature Gran % (Auto) 0.7 H 1.1 H Neut % (Auto) 85.6 H 85.6 H Lymph % (Auto) 10.2 L 9.8 L Love % (Auto) 2.5 2.9 Eos % (Auto) 0.8 0.4 Baso % (Auto) 0.2 0.2 Lymph # (Auto) 2.0 2.2 Love # (Auto) 0.5 0.6 Eos # (Auto) 0.2 0.1 Baso # (Auto) 0.0 0.0 Abs Immat Gran (auto) 0.13 H 0.24 H Absolute Neuts (auto) 16.9 H 19.1 H Absolute Nucleated RBC 0.040 H 0.030 H Nucleated RBC % (auto) 0.2 0.1 Smear Tech's Comments VERIFIED Smear Path Review SEE NOTE Anion Gap 12 13 Estim Creat Clear Calc 41.5 46.8 Estimated GFR > 60 > 60 Random Glucose 100 Fasting Glucose 98 Calcium 7.9 L 7.9 L Blood Type O Positive Antibody Screen NEGATIVE Crossmatch See Detail 03/21/25 14:26 MCV MCH MCHC RDW Plt Count MPV Immature Gran % (Auto) Neut % (Auto) Lymph % (Auto) Love % (Auto) Eos % (Auto) Baso % (Auto) Lymph # (Auto) Love # (Auto) Eos # (Auto) Baso # (Auto) Abs Immat Gran (auto) Absolute Neuts (auto) Absolute Nucleated RBC Nucleated RBC % (auto) Smear Tech's Comments Smear Path Review Anion Gap 14 Estim Creat Clear Calc 44.2 Estimated GFR > 60 Random Glucose 274 H Fasting Glucose Calcium 7.9 L Blood Type Antibody Screen Crossmatch Microbiology Microbiology Results: Microbiology 03/14/25 15:50 Blood Culture - Preliminary Blood - Venous Prelim: GNR Gram Stain only 03/15/25 Unknown Gram Stain - Final Peritoneal Fluid Routine Culture - Final Escherichia coli Viridans streptococcus group Anaerobic Culture - Final Clostridium clostridiiforme Eubacterium limosum Assessment and Plan (1) HTN (hypertension): Status: Acute (2) CHF (congestive heart failure): Status: Acute (3) A-fib: Status: Acute (4) HLD (hyperlipidemia): Status: Acute (5) Small bowel perforation: Status: Acute (6) Bowel perforation: Status: Acute (7) RIOS (acute kidney injury): Status: Acute (8) Acute lactic acidosis: Status: Acute (9) Hypokalemia: Status: Acute (10) Hypernatremia: Status: Acute (11) UTI (urinary tract infection): Status: Acute (12) Acute anemia: Status: Acute (13) Delirium: Status: Acute (14) Dementia: Status: Acute (15) Severe sepsis: Status: Acute Plan 89 yo male from the [facility] with a pmhx significant for dementia, a fib on eliquis, HTN, CHF, HLD and BPH, who presented to the ED due to abd pain and chest pain x4 hours and found to have perforated viscus complicated by severe sepsis & acute CHF exacerbation. Acute hypoxic respiratory failure Acute CHF exacerbation Possible aspiration pneumonia Patient has elevated JVP bilateral, with reduced breath sounds at the bases. signifncat rales throughout all lung zones Elevated NT proBNP Respiratory viral panel in process Improved with furosemide 20 mg IV once. Readministering 20mg furosemide IV CXR STAT repeating blood work Perforated viscus with Severe sepsis peritonitis' s/p ex-lap, colectomy and colostomy on 03/15 blood culture and peritoneal culture growing E.coli and Strep Viridan Continue IV Zosyn covers E.coli, Strep Viridan and also anerobe, when ready for DC can change to PO Augmentin Diet per surgery Pain medication. Incentive spirometry ID consult ordered, recommendations greatly appreciated Acute anemia Blood loss anemia Progressively worsening hemoglobin, currently 6.8 mg/dL. Decreased by 1 mg/dL compared to yesterday. No overt source of bleeding, other than possible new colostomy/ GI tract. We consented the patient over the telephone for blood transfusion. Type and screen was ordered, repeat CBC ordered. PLAN - pantoprazole 40 mg b.i.d. IV to address possible UGIB if present - pending type and screen - pending repeat CBC - transfuse hemoglobin to > 8 mg/dL - at risk for TACO; will require furosemide 10 mg IV between each transfusion (if receiving more than 1) Leukocytosis Continue to monitor closely If pyrexia, obtain blood cultures and expand antibiotic coverage Possible stress-induced Concern for possible abdominal abscess - CT-AP with IV contrast Hypernatremia Increase in sodium from 140-146-150. This is borderline at this time Repeat BMP Initiate D5W 75 cc/hour for 500 cc total Agitation and combativeness Dementia Patient has baseline dementia, that has been worsened acutely by metabolic encephalopathy. Unfortunately, the patient has become significantly combative. Patient has a baseline right bundle branch block therefore falsely prolonging QTC. QTC 420-460 milliseconds Within safe range Intramuscular olanzapine 2.5 mg suffices to reduce patient's combativeness to be used PRN RIOS, suspect ATN from sepsis, resolved IVF, avoid nephrotoxin and follow renal function closely Delirium and metabolic encephalopathy --likely multifactorial d/t sepsis, RIOS, anesthetics monitor closely, presntly has sitter Acute lactic acidosis, secondary to severe sepsis lactic trended down 4.1-->2.7 IVF Anemia, post op, H/H stable, no indication for transfusion Transfuse for Hgb <8.0mg/dl UTI zosyn as above follow urine culture a fib with RVR, likely triggered by sepsis IV Metoprolol PRN for RVR, start schedule oral metoprolol 25 bid, resume eliquis when ok with surgery HTN Losartan and Norvasc on hold, if peristant high may restart one at a time, starting with Norvasc, starting metoprolol as above BPH hold flomax due tohypotension resume when stable after surgery [employer] - VTE: SCDs - CODE STATUS: DNR/DNI - DIET: NPO currently Total time managing care of this patient today: 60 minutes. Quality Stroke Does the patient have a stroke diagnosis?: No VTE Prior VTE?: No VTE Risk Level:: Surgical - low VTE Device Contraindication: N/A - Device Ordered VTE Drug Contraindication: Treatment Not Indicated
[2025-03-21 18:04] LABS: MANUAL DIFF FLAG NO
[2025-03-21 18:12] LABS: Hematocrit 28.9 % (42.0-52.0); Hemoglobin 8.9 g/dl (14.0-18.0); Imm Gran Abs Auto 0.36 X10*3/uL (0.00-0.03); Imm Gran Pct Auto 1.4 % (0.0-0.4); Lymphocytes Absolute Auto 3.0 X10*3/uL (1.2-4.9); Mean Corpuscular HGB Conc 30.8 g/dl (31.0-36.0); Mean Corpuscular Hemoglobin 25.1 pg (27.0-33.0); Mean Corpuscular Volume 81.6 fL (80.0-98.0); NRBC Abs Auto 0.020 X10*3/uL (0.0-0.012); NRBC Pct Auto 0.1 /100WBC (0.0-0.2); Platelet Count 410 X10*3/uL (160-400); Red Blood Count 3.54 X10*6/uL (4.60-5.80); SCAN SMEAR FLAG 1; White Blood Count 26.6 X10*3/uL (4.8-10.8)
[2025-03-21 18:20] LABS: INTERNATIONAL NORM RATIO 1.1 (0.9-1.1); Prothrombin Time 13.5 SEC (11.2-13.5)
[2025-03-21 18:33] LABS: Alanine Aminotransferase 12 U/L (0-40); Albumin Level 2.7 g/dL (3.5-5.0); Alkaline Phosphatase 67 U/L (39-117); Anion Gap 11 (12-20); Aspartate Amino Transferase 31 U/L (5-37); Blood Urea Nitrogen 27 mg/dL (9-16); Calcium 7.9 mg/dL (8.4-10.2); Carbon Dioxide 23 mmol/L (22-29); Chloride 114 mmol/L (96-108); Creatinine Clr Calc Pharmacy 37.5; Estimated Glomerular Filt Rate 54; Potassium 3.4 mmol/L (3.3-5.1); Sodium 145 mmol/L (135-145); Total Protein 5.4 g/dL (6.5-8.0)
[2025-03-21 19:57] LABS: Reflex Lactate? Lactic Acid Added
--- NOTE | 2025-03-21 20:19 | PC.NURSE ---
Assumed care of patient at 15:00. Messaged provider in regards to code and goals of care in the setting of advanced age, recent surgery, escalating oxygen and dusky mucous membranes needs. MD ordered multiple interventions (see MD event note) and was also able to contact family who came to the bedside shortly after. MD reviewed MOLST with family and code status changed to DNR/DNI family also stated do not BIPAP. Multiple attempts made for ultrasound IV access. patient was very difficult to access. Established 1 ultrasound IV to the right upper arm. Patient recieved 20mg IVP lasix and was deep suctioned. He is now on HiFlow Nasal Cannula on 50L 40% satting better and more alert at the time of RN to RN report. MD also stated to order nonbehavioral bilateral soft wrist restraints in the setting of pulling at HFNC, IVs, male purewick, patients own ALVIN drain, patient own skin tears, and abdominal midline dressing, as well as confusion. See lactic acid, other pertinent labs, CXR, updates to antibiotics and fluid bolus's, and orders for additional imaging.
[2025-03-21] MEDS: Lactated Ringers 500 ML IVCONT (20:24)
[2025-03-21] MEDS: vancomycin HCL 1,000 MG, vancomycin HCL 750 MG in 0.9 % Sodium Chloride 500 ML 267.5 MG IV (20:55)
--- NOTE | 2025-03-21 21:22 | PHA.PROG ---
Admission Date/Time: March 14, 2025 22:28 Indication: Respiratory Weight in k.9 kg Adjusted body weight in Kg: [place] body weight in Kg: Obesity Dosing Indication % IBW: Serum Creatinine - Last 168 Hours 03/15/25 03/15/25 03/16/25 05:04 11:09 06:59 Creatinine 1.19 1.23 1.55 H 03/17/25 03/18/25 03/19/25 07:04 06:52 07:50 Creatinine 1.26 0.96 0.99 03/20/25 03/20/25 03/21/25 09:36 18:20 07:33 Creatinine 1.15 1.15 1.02 03/21/25 03/21/25 14:26 17:52 Creatinine 1.08 1.27 Estimated CrCl and GFR - Last 168 Hours 03/15/25 03/15/25 03/16/25 05:04 11:09 06:59 Estim Creat Clear Calc 38.5 37.3 30.7 Estimated GFR 58 56 43 03/17/25 03/18/25 03/19/25 07:04 06:52 07:50 Estim Creat Clear Calc 37.8 49.7 48.2 Estimated GFR 54 > 60 > 60 03/20/25 03/20/25 03/21/25 09:36 18:20 07:33 Estim Creat Clear Calc 41.5 41.5 46.8 Estimated GFR > 60 > 60 > 60 03/21/25 03/21/25 14:26 17:52 Estim Creat Clear Calc 44.2 37.5 Estimated GFR > 60 54 Vancomycin Loading Dose: 1750 mg Current Vancomycin Dosing Regimen: 1000 mg Q24H Vancomycin Monitoring using AUC goal of 400 - 600 range with trough as surrogate marker: Predicted AUC 551 and trough 17.6 Date and Time for next Vancomycin Level to be drawn: 03/23 @1900 after second dose Pharmacist Comments on Vancomycin Plan: Vancomycin dosing will take advantage of [employer] as a clinical decision support tool that uses Bayesian modeling to calculate individual patient's pharmacokinetic parameters and forecast the patient's drug concentration time course with the target goal AUC 24 range of 400 - 600 mg/L/hr.
[2025-03-21 21:48] LABS: Reflex Lactate? Lactic Acid Added
[2025-03-21 22:30] LABS: ~Lactic Acid-LAB USE ONLY 3.4 mmol/L (0.5-2.0)
[2025-03-22] VITALS (9 sets, daily range): BP systolic 104–156; BP diastolic 54–77; PULSE 69–113; RESP 16–22; TEMP 36.1–37; O2SAT 92–99; BMI 23.4
[2025-03-22 00:08] LABS: Reflex Lactate? 2 Y
[2025-03-22 01:15] LABS: ~Lactic Acid-LAB USE ONLY 1.8 mmol/L (0.5-2.0)
--- NOTE | 2025-03-22 08:38 | P.PNGS_ITS ---
Subjective Subjective Date of Service: 03/22/25 <Eileen Jack PA-C - Last Filed: 03/22/25 08:43> 03/22/25 <Stas Juarez MD - Last Filed: 03/22/25 09:24> Interval history: Desaturated to 88%, placed on 6 L O2 and then upgraded to high-flow NC. Received IV lasix. CXR showed mild worsening of right lower lung opacity. On IV zosyn and vanco added. Appears improved this morning, resting comfortably in his bed. Very conversive and laughing. Denies abdominal pain. <Eileen Jack PA-C - Last Filed: 03/22/25 08:43> Physical Exam 2 Vital Signs: Vital Signs: Last Vital Signs Temp 98.1 F 03/22/25 07:39 Pulse 91 03/22/25 07:39 Resp 18 03/22/25 07:39 BP 156/67 H 03/22/25 07:39 Pulse Ox 96 03/22/25 07:39 O2 Del Method High Flow Nasal C annula 03/22/25 07:39 O2 Flow Rate 45 03/22/25 07:39 FiO2 40 03/22/25 07:39 BMI result Body Mass Index 23.4 <Eileen Jack PA-C - Last Filed: 03/22/25 08:43> Const: General: no acute distress and alert <Eileen Jack PA-C - Last Filed: 03/22/25 08:43> Resp: Other: some increased work of breathing <Eileen Jack PA-C - Last Filed: 03/22/25 08:43> GI: Other: soft ostomy remains viable appearing with dark brown output incision clean ALVIN continues to be more serous <Eileen Jack PA-C - Last Filed: 03/22/25 08:43> Skin: Other: warm and dry <CARLITOS Ayala Last Filed: 03/22/25 08:43> Neuro: Other: alert <CARLITOS Ayala Last Filed: 03/22/25 08:43> Objective Data Active Medications Atorvastatin Calcium (Atorvastatin Calcium 20 Mg Tablet) 20 mg PO BEDTIME JAQUI Last Admin: 03/21/25 21:05 Dose: 20 mg Documented By: RAMYA Piperacillin Sod/Tazobactam (Sod 3.375 gm/ Sodium Chloride) 50 mls @ 100 mls/hr IV Q6H [facility] Last Infusion: 03/22/25 03:10 Dose: Infused Documented By: RAMYA Vancomycin HCl 1,000 mg/ (Sodium Chloride) 270 mls @ 270 mls/hr IV Q24H [facility] Metoprolol Tartrate (Metoprolol Tartrate 5 Mg/5 Ml Vial) 5 mg IVPUSH Q6H PRN; Protocol PRN Reason: HR > 110 Metoprolol Tartrate (Metoprolol Tartrate 25 Mg Tablet) 25 mg PO BID [facility]; Protocol Last Admin: 03/21/25 21:04 Dose: 25 mg Documented By: RAMYA Morphine Sulfate (Morphine Sulfate 4 Mg/Ml Cartridge) 2 mg IVPUSH Q3H PRN; Protocol PRN Reason: Pain, Severe (Pain Scale 7-10) Last Admin: 03/20/25 16:27 Dose: 2 mg Documented By: PHANLDAMIAN Nystatin (Nystatin Oral Susp 500,000 Unit/5 Ml Oral.Susp) 400,000 unit BUCCAL QID [facility]; Protocol Last Admin: 03/21/25 21:05 Dose: 400,000 unit Documented By: RAMYA Ondansetron HCl (Ondansetron Hcl 4 Mg/2 Ml Vial) 4 mg IVPUSH Q8H PRN PRN Reason: Nausea and Vomiting Pantoprazole Sodium (Pantoprazole Sodium 40 Mg/10 Ml Vial) 40 mg IVPUSH DAILY@0630 [facility] Last Admin: 03/22/25 06:16 Dose: 40 mg Documented By: RAMYA Pharmacy Consult (Consult Rx Vancomycin Dosing) 1 each MISCELLANE DAILY PRN PRN Reason: Consult order Sodium Chloride (0.9 % Sodium Chloride Flush 3 Ml Syringe) 3 ml IVFLUSH QSHIFT [facility] Last Admin: 03/21/25 21:06 Dose: 3 ml Documented By: RAMYA Tamsulosin HCl (Tamsulosin Hcl 0.4 Mg Capsule) 0.4 mg PO BEDTIME [facility] Last Admin: 03/21/25 21:04 Dose: Not Given Documented By: RAMYA Non-Admin Reason: unable to crush <Eileen Jack PA-C - Last Filed: 03/22/25 08:43> Labs CBC & Chem 7: 03/21/25 17:52 03/21/25 17:52 <Eileen Jack PA-C - Last Filed: 03/22/25 08:43> Labs: Laboratory Results - last 24 hr 03/20/25 03/21/25 03/21/25 09:36 14:26 17:52 MCV 81.6 MCH 25.1 L MCHC 30.8 L RDW 16.7 H Plt Count 410 H D MPV 9.4 Immature Gran % (Auto) 1.4 H Neut % (Auto) 84.6 H Lymph % (Auto) 11.2 L [place] % (Auto) 2.3 Eos % (Auto) 0.3 Baso % (Auto) 0.2 Lymph # (Auto) 3.0 [place] # (Auto) 0.6 Eos # (Auto) 0.1 Baso # (Auto) 0.1 Abs Immat Gran (auto) 0.36 H Absolute Neuts (auto) 22.6 H Absolute Nucleated RBC 0.020 H Nucleated RBC % (auto) 0.1 Smear Path Review SEE NOTE Hold Purple Top SEE NOTE PT 13.5 D INR 1.1 Anion Gap 14 11 L Estim Creat Clear Calc 44.2 37.5 Estimated GFR > 60 54 Random Glucose 274 H 171 H Lactic Acid 3.9 H* Lactic Acid F/U @ 2Hr Lactic Acid F/U @ 4Hr Calcium 7.9 L 7.9 L Total Bilirubin 0.5 AST 31 ALT 12 Alkaline Phosphatase 67 Total Protein 5.4 L Albumin 2.7 L Hold Green Top See Note 03/21/25 03/21/25 03/22/25 19:43 22:03 00:50 MCV MCH MCHC RDW Plt Count MPV Immature Gran % (Auto) Neut % (Auto) Lymph % (Auto) [place] % (Auto) Eos % (Auto) Baso % (Auto) Lymph # (Auto) [place] # (Auto) Eos # (Auto) Baso # (Auto) Abs Immat Gran (auto) Absolute Neuts (auto) Absolute Nucleated RBC Nucleated RBC % (auto) Smear Path Review Hold Purple Top PT INR Anion Gap Estim Creat Clear Calc Estimated GFR Random Glucose Lactic Acid 3.7 H* Lactic Acid F/U @ 2Hr 3.4 H* Lactic Acid F/U @ 4Hr 1.8 Calcium Total Bilirubin AST ALT Alkaline Phosphatase Total Protein Albumin Hold Green Top <Eileen Jack PA-C - Last Filed: 03/22/25 08:43> Microbiology Microbiology Results: Microbiology 03/14/25 15:50 Blood Culture - Preliminary Blood - Venous Prelim: GNR Gram Stain only <Eileen Jack PA-C - Last Filed: 03/22/25 08:43> Procedures Date of Service Date of Service: 03/22/25 <Eileen Jack PA-C - Last Filed: 03/22/25 08:43> 03/22/25 <Stas Juarez MD - Last Filed: 03/22/25 09:24> Progress Note: A&P Assessment and plan (1) Bowel perforation: Status: Acute <CARLITOS Ayala Last Filed: 03/22/25 08:43> Assessment and Plan: Had an episode of hypoxia respiratory failure last night Now seems to comfortable Appears to be more alert and conversant Abdomen is soft, benign good stoma function Had elevated white count so follow up CAT scan considered rule out any abscess He had high risk for aspiration so he is not taking p.o. Consider parenteral nutrition therefore He seems to be doing quite well today Appreciate hospitalist follow-up I have seen and examined the patient independently <Stas Juarez MD - Last Filed: 03/22/25 09:24> Assessment and Plan: POD #6 s/p exploratory laparotomy with Clarissa procedure. Developed respiratory distress last night, remains on high flow but comfortable appearing and more alert and conversive. Abd remains very benign, ALVIN more serous, ostomy functioning. CT scan abd pelvis was ordered yesterday for increasing WBC count but never performed. Await scan today to assess for intraabdominal abscess. Appreciate hospitalist input and medical management. <CARLITOS Ayala Last Filed: 03/22/25 08:43> Time Spent With Patient Time: Total time managing care of this patient today ____ minutes. <CARLITOS Ayala Last Filed: 03/22/25 08:43> Quality Stroke Does the patient have a stroke diagnosis?: No <Eileen Jack PA-C - Last Filed: 03/22/25 08:43> VTE Prior VTE?: No <Eileen Jack PA-C - Last Filed: 03/22/25 08:43> VTE Risk Level:: Surgical - low <Eileen Jack PA-C - Last Filed: 03/22/25 08:43> VTE Device Contraindication: N/A - Device Ordered <Eileen Jack PA-C - Last Filed: 03/22/25 08:43> VTE Drug Contraindication: Treatment Not Indicated <Eileen Jack PA-C - Last Filed: 03/22/25 08:43>
[2025-03-22 10:14] LABS: MANUAL DIFF FLAG NO
[2025-03-22 10:20] LABS: Hematocrit 27.9 % (42.0-52.0); Hemoglobin 8.5 g/dl (14.0-18.0); Imm Gran Abs Auto 0.13 X10*3/uL (0.00-0.03); Imm Gran Pct Auto 0.7 % (0.0-0.4); Lymphocytes Absolute Auto 1.9 X10*3/uL (1.2-4.9); Mean Corpuscular HGB Conc 30.5 g/dl (31.0-36.0); Mean Corpuscular Hemoglobin 24.9 pg (27.0-33.0); Mean Corpuscular Volume 81.6 fL (80.0-98.0); NRBC Abs Auto 0.020 X10*3/uL (0.0-0.012); NRBC Pct Auto 0.1 /100WBC (0.0-0.2); Platelet Count 347 X10*3/uL (160-400); Red Blood Count 3.42 X10*6/uL (4.60-5.80); White Blood Count 18.2 X10*3/uL (4.8-10.8)
[2025-03-22 11:04] LABS: Alanine Aminotransferase 10 U/L (0-40); Albumin Level 2.6 g/dL (3.5-5.0); Alkaline Phosphatase 63 U/L (39-117); Anion Gap 12 (12-20); Aspartate Amino Transferase 23 U/L (5-37); Blood Urea Nitrogen 20 mg/dL (9-16); Calcium 8.0 mg/dL (8.4-10.2); Carbon Dioxide 24 mmol/L (22-29); Chloride 117 mmol/L (96-108); Creatinine Clr Calc Pharmacy 45.4; Estimated Glomerular Filt Rate > 60; Potassium 2.8 mmol/L (3.3-5.1); Sodium 150 mmol/L (135-145); Total Protein 5.0 g/dL (6.5-8.0)
--- NOTE | 2025-03-22 11:06 | MHC.CM.PN ---
PER MD ROUNDS, PT NOT MEDICALLY CLEARED AND GOALS OF CARE DISCUSSION WILL BE ONGOING IF PT DOES NOT IMPROVE DCP: RETURN TO [facility] VIA BLS
--- NOTE | 2025-03-22 11:29 | MHC.CLN ---
CONSULT FOR PPN REVIEWED LABS DISCUSSED WITH PHARMACY PT CURRENTLY NPO S/P [place] PROCEDURE RECOMMEND 03/22/25 PPN AT 60ML/HR TO PROVIDE 734KCALS, 144G DEXTROSE, 61G PROTEIN REPLETE LYTES NEEDED; CHECK TRIGS 03/23/25 RECOMMEND INCREASING PPN TO MAX GOAL RATE 80ML/HR WITH 80G LIPIDS TO PROVIDE 1779 TOTAL KCALS (26KCALS/KG), 192G DEXTROSE, 82G PROTEIN (1.2G/KG) REPLETE LYTES NEEDED 03/24/25 CONTINUE PPN AT MAX GOAL RATE NOTED ABOVE RD CAN BE REACHED VIA TIGER CONNECT DURING OFF HOURS IF NEEDED SEE FULL NUTRITION ASSESSMENT
[2025-03-22 12:06] LABS: Magnesium 2.0 mg/dL (1.6-2.6)
[2025-03-22] MEDS: Potassium Chloride/H20 10 MEQ/100 ML PIGGYBACK 100 MEQ IV ×4 (12:06→16:57)
[2025-03-22] MEDS: 0.9 % Sodium Chloride Flush 3 ML SYRINGE IVFLUSH ×2 (12:12→20:35)
--- NOTE | 2025-03-22 12:21 | HO.WOUND ---
Ostomy Consult: Follow up 89yr old male admitted to [facility] on 03/14/25 - see H&P for detailed history and admission.? Consult for new ostomy teaching. ?He had Colostomy creation on 03/16/[address] Gil. ?Upon entry into patient's room, patient is in his bed, awake, pleasant and agreeable to assessment and pouch change. Pouch assessed to be intact and no leaking noted. Patient is confused and not appropriate for teaching. Peristomal bruising improving and midline remains intact from yesterdays assessment. Stoma is pale pink moist round. Liquid dark brown output. ALVIN drain with pink tinged clear fluid 50cc emptied. Inpatient will continue to follow along for readiness. Stoma 03/18/25 03/21/25 Coloplast 1 piece pouch #[id number] applied yesterday cut to 35 round applied without complication. Stoma is budded above skin line no pouching concerned noted at this time. Recommend the following steps: 1. Empty pouch before pouch change 2. Remove pouch using push/pull technique from top to bottom 3. Cleanse stoma and skin with tap water only - no soap or wipes 4. Pat dry 5. Measure stoma and cut new pouch no more than 1/8 inch larger than stoma and no smaller than stoma 6. If instructed by your ostomy nurse stretch barrier seal to the size of the stoma and press onto skin around stoma (up to the edge of the stoma but not onto the stoma) 7. Press the new pouch into place and hold for several seconds (close pouch tail) 8. Empty pouch when 1/3 to 1/2 full 9. Change pouch twice weekly on a schedule (for example, every Tuesday and ) and as needed for any leaking (feels like intense itch or burn at edge of stoma) 10. May order pre-cut pouches (already cut to size of stoma) once stoma measures the same size consistently at about 8-12 weeks.
--- NOTE | 2025-03-22 14:02 | MHC.SLORD ---
Speech Language Pathology Order Status: Per EMR, last night patient desatt'ed to 88%, placed on 6 L O2 and then upgraded to high-flow NC. Received IV lasix. CXR showed mild worsening of right lower lung opacity. Patient noted to be rhonchorous, with tachypnea and dyspnea. [employer] inquired to RN this a.m. about patient's NPO status and whether he can be seen for repeat-swallow eval. Per RN, hold on swallow eval for this morning as it is suspected that patient is silently aspirating. FLAG SIGNALER reported to [employer]ITY INTERN that she saw patient decline after feeding yesterday evening, as he sounded wet and junky immediately after feeding. Patient is now receiving O2 via NC. [facility] notes patient's diet as chopped meats and that patient takes his meds whole in applesauce. DIVERSITY INTERN again contacted RN via secure text this afternoon about patient's status. Per RN, still hold on swallow eval, patient continues as NPO. RD was consulted for PPN. [employer]ITY INTERN advised about call-in schedule over the weekend if needed.
[2025-03-22] MEDS: Nystatin Oral Susp 500,000 UNIT/5 ML ORAL.SUSP 400000 UNIT BUCCAL ×2 (15:01→20:22)
--- NOTE | 2025-03-22 16:36 | HO.PM.IMPN ---
Subjective Subjective Date of Service: 03/22/25 Interval History: Improved this morning - more communicative Less distressed respiratory-seals Complex events last night KUB performed this morning; revealing some ileus - made NPO with plans for possible PPN at this time Review of Systems Review of Systems: Yes all other systems are reviewed and are negative Physical Exam Exam: Exam: General: A&O x1 to person only, not to time, place or situation. Cardiac: S1, S2 auscultated with no S3/4, no MRG. Well perfused. Tachycardic Respiratory: Decreased breath sounds in the bases bilaterally, with crepitations and crackles auscultated throughout all lung zones, tachypneic and dyspneic, no peripheral or central cyanosis GI/ : Abdomen distended, soft, tender with coughing, colostomy present, with dark brown stool MSK: Normal ambulation without pain at bony prominences or musculature Neurological: Normal neurological examination on overview, without obvious CN II-XII abnormalities. Vital Signs: Vital Signs: Last Vital Signs Temp 97.0 F 03/22/25 15:44 Pulse 94 03/22/25 15:44 Resp 20 03/22/25 15:44 BP 123/55 L 03/22/25 15:44 Pulse Ox 94 03/22/25 15:44 O2 Del Method Nasal Cannula 03/22/25 15:44 O2 Flow Rate 3 03/22/25 15:44 FiO2 40 03/22/25 07:39 BMI result Body Mass Index 23.4 Objective Data Active Medications Atorvastatin Calcium (Atorvastatin Calcium 20 Mg Tablet) 20 mg PO BEDTIME JAQUI Last Admin: 03/21/25 21:05 Dose: 20 mg Documented By: RAMYA Piperacillin Sod/Tazobactam (Sod 3.375 gm/ Sodium Chloride) 50 mls @ 100 mls/hr IV Q6H [facility] Last Infusion: 03/22/25 15:54 Dose: Infused Documented By: ELAN Vancomycin HCl 1,000 mg/ (Sodium Chloride) 270 mls @ 270 mls/hr IV Q24H [facility] Nutrition (Parenteral) (Parenteral Nutrition) 1,440 mls @ 60 mls/hr IV .Q24H [facility]; Protocol Stop: 03/23/25 20:59 Metoprolol Tartrate (Metoprolol Tartrate 5 Mg/5 Ml Vial) 5 mg IVPUSH Q6H PRN; Protocol PRN Reason: HR > 110 Metoprolol Tartrate (Metoprolol Tartrate 25 Mg Tablet) 25 mg PO BID [facility]; Protocol Last Admin: 03/22/25 12:06 Dose: 25 mg Documented By: ELAN Morphine Sulfate (Morphine Sulfate 4 Mg/Ml Cartridge) 2 mg IVPUSH Q3H PRN; Protocol PRN Reason: Pain, Severe (Pain Scale 7-10) Last Admin: 03/20/25 16:27 Dose: 2 mg Documented By: WADE Nystatin (Nystatin Oral Susp 500,000 Unit/5 Ml Oral.Susp) 400,000 unit BUCCAL QID [facility]; Protocol Last Admin: 03/22/25 15:01 Dose: 400,000 unit Documented By: ELAN Ondansetron HCl (Ondansetron Hcl 4 Mg/2 Ml Vial) 4 mg IVPUSH Q8H PRN PRN Reason: Nausea and Vomiting Pantoprazole Sodium (Pantoprazole Sodium 40 Mg/10 Ml Vial) 40 mg IVPUSH DAILY@0630 [facility] Last Admin: 03/22/25 06:16 Dose: 40 mg Documented By: RAMYA Pharmacy Consult (Consult Rx Vancomycin Dosing) 1 each MISCELLANE DAILY PRN PRN Reason: Consult order Sodium Chloride (0.9 % Sodium Chloride Flush 3 Ml Syringe) 3 ml IVFLUSH QSHIFT [facility] Last Admin: 03/22/25 12:12 Dose: 3 ml Documented By: ELAN Tamsulosin HCl (Tamsulosin Hcl 0.4 Mg Capsule) 0.4 mg PO BEDTIME [facility] Last Admin: 03/21/25 21:04 Dose: Not Given Documented By: RAMYA Non-Admin Reason: unable to crush Labs 03/22/25 10:09 03/22/25 10:09 Labs: Laboratory Results - last 24 hr 03/21/25 03/21/25 03/21/25 17:52 19:43 22:03 MCV 81.6 MCH 25.1 L MCHC 30.8 L RDW 16.7 H Plt Count 410 H D MPV 9.4 Immature Gran % (Auto) 1.4 H Neut % (Auto) 84.6 H Lymph % (Auto) 11.2 L [place] % (Auto) 2.3 Eos % (Auto) 0.3 Baso % (Auto) 0.2 Lymph # (Auto) 3.0 [place] # (Auto) 0.6 Eos # (Auto) 0.1 Baso # (Auto) 0.1 Abs Immat Gran (auto) 0.36 H Absolute Neuts (auto) 22.6 H Absolute Nucleated RBC 0.020 H Nucleated RBC % (auto) 0.1 Hold Purple Top SEE NOTE PT 13.5 D INR 1.1 Anion Gap 11 L Estim Creat Clear Calc 37.5 Estimated GFR 54 Random Glucose 171 H Lactic Acid 3.9 H* 3.7 H* Lactic Acid F/U @ 2Hr 3.4 H* Lactic Acid F/U @ 4Hr Calcium 7.9 L Phosphorus Magnesium Total Bilirubin 0.5 AST 31 ALT 12 Alkaline Phosphatase 67 Total Protein 5.4 L Albumin 2.7 L Hold Green Top See Note 03/22/25 03/22/25 00:50 10:09 MCV 81.6 MCH 24.9 L MCHC 30.5 L RDW 16.8 H Plt Count 347 MPV 9.4 Immature Gran % (Auto) 0.7 H Neut % (Auto) 85.5 H Lymph % (Auto) 10.7 L [place] % (Auto) 2.6 Eos % (Auto) 0.3 Baso % (Auto) 0.2 Lymph # (Auto) 1.9 [place] # (Auto) 0.5 Eos # (Auto) 0.1 Baso # (Auto) 0.0 Abs Immat Gran (auto) 0.13 H Absolute Neuts (auto) 15.5 H Absolute Nucleated RBC 0.020 H Nucleated RBC % (auto) 0.1 Hold Purple Top PT INR Anion Gap 12 Estim Creat Clear Calc 45.4 Estimated GFR > 60 Random Glucose 123 H Lactic Acid Lactic Acid F/U @ 2Hr Lactic Acid F/U @ 4Hr 1.8 Calcium 8.0 L Phosphorus 1.6 L Magnesium 2.0 Total Bilirubin 0.5 AST 23 ALT 10 Alkaline Phosphatase 63 Total Protein 5.0 L Albumin 2.6 L Hold Green Top Microbiology Microbiology Results: Microbiology 03/14/25 15:50 Blood Culture - Preliminary Blood - Venous Prelim: GNR Gram Stain only Assessment and Plan (1) HTN (hypertension): Status: Acute (2) CHF (congestive heart failure): Status: Acute (3) A-fib: Status: Acute (4) RIOS (acute kidney injury): Status: Acute (5) Ileus: Status: Acute (6) Acute lactic acidosis: Status: Acute (7) Hypokalemia: Status: Acute (8) Hypernatremia: Status: Acute (9) UTI (urinary tract infection): Status: Acute (10) Acute anemia: Status: Acute (11) Severe sepsis: Status: Acute (12) Gram-negative bacteremia: Status: Acute (13) Dementia: Status: Acute (14) Delirium: Status: Acute Plan 89 yo male from the [facility] with a pmhx significant for dementia, a fib on eliquis, HTN, CHF, HLD and BPH, who presented to the ED due to abd pain and chest pain x4 hours and found to have perforated viscus complicated by severe sepsis & acute CHF exacerbation. 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 Incentive spirometry ID consult ordered, recommendations greatly appreciated KUB performed, followed up by CT abdomen pelvis with oral contrast Revealed evidence of possible ileus, without evidence of perforation. The patient was subsequently made NPO, and PPN to be considered Conservative management & bowel rest indicated at this time Acute hypoxic respiratory failure Acute CHF exacerbation Possible aspiration pneumonia Patient has elevated JVP bilateral, with reduced breath sounds at the bases. signifncat rales throughout all lung zones Elevated NT proBNP Respiratory viral panel in process Improved with furosemide 20 mg IV once. Readministering 20mg furosemide IV PRN RESOLVING Acute anemia Blood loss anemia Progressively worsening hemoglobin, currently 6.8 mg/dL. Decreased by 1 mg/dL compared to yesterday. No overt source of bleeding, other than possible new colostomy/ GI tract. We consented the patient over the telephone for blood transfusion. Type and screen in system 03/20 Transfused 1u PRBC 03/20 with improvement in Hgb. PLAN - pantoprazole 40 mg b.i.d. IV to address possible UGIB if present - pending repeat CBC - transfuse hemoglobin to > 8 mg/dL - at risk for TACO; will require furosemide 10 mg IV between each transfusion (if receiving more than 1) Leukocytosis Continue to monitor closely If pyrexia, obtain blood cultures and expand antibiotic coverage Possible stress-induced Concern for possible abdominal abscess - CT-AP with IV contrast Hypernatremia Increase in sodium from 140-146-150. This is borderline at this time Repeat BMP Has required D5W to resolve hypernatremia Agitation and combativeness Dementia Patient has baseline dementia, that has been worsened acutely by metabolic encephalopathy. Unfortunately, the patient has become significantly combative. Patient has a baseline right bundle branch block therefore falsely prolonging QTC. QTC 420-460 milliseconds Within safe range Intramuscular olanzapine 2.5 mg suffices to reduce patient's combativeness to be used PRN RIOS, suspect ATN from sepsis, resolved IVF, avoid nephrotoxin and follow renal function closely Delirium and metabolic encephalopathy --likely multifactorial d/t sepsis, RIOS, anesthetics monitor closely, presntly has sitter Acute lactic acidosis, secondary to severe sepsis lactic trended down 4.1-->2.7 Recurrent lactic acidosis 3.8 --> 1.4 IVF Anemia, post op, H/H stable, no indication for transfusion Transfuse for Hgb <8.0mg/dl UTI zosyn as above follow urine culture A fib with RVR, likely triggered by sepsis IV Metoprolol PRN for RVR, start schedule oral metoprolol 25 bid, Resume eliquis when ok with surgery HTN Losartan and Norvasc on hold, if peristant high may restart one at a time, starting with Norvasc, starting metoprolol as above BPH hold flomax due to hypotension resume when stable after surgery [employer] - VTE: SCDs - CODE STATUS: DNR/DNI ([facility] 03/14/2025) - no escalation of ventilatory support (eg CPAP/BiPAP) - DIET: NPO currently -- PPN Total time managing care of this patient today: 60 minutes. Quality Stroke Does the patient have a stroke diagnosis?: No VTE Prior VTE?: No VTE Risk Level:: Surgical - low VTE Device Contraindication: N/A - Device Ordered VTE Drug Contraindication: Treatment Not Indicated
[2025-03-22] MEDS: Parenteral Nutrition 1,440 ML 60 ML IV (20:23)
--- NOTE | 2025-03-22 23:18 | PM.IDPN ---
Subjective Subjective Date of Service: 03/22/25 Critical Care Time (minutes): 15 Comment: He is somewhat combative today Objective Data Labs 03/22/25 10:09 03/22/25 10:09 Labs: Laboratory Results - last 24 hr 03/22/25 03/22/25 00:50 10:09 WBC 18.2 H RBC 3.42 L Hgb 8.5 L Hct 27.9 L MCV 81.6 MCH 24.9 L MCHC 30.5 L RDW 16.8 H Plt Count 347 MPV 9.4 Immature Gran % (Auto) 0.7 H Neut % (Auto) 85.5 H Lymph % (Auto) 10.7 L [place] % (Auto) 2.6 Eos % (Auto) 0.3 Baso % (Auto) 0.2 Lymph # (Auto) 1.9 [place] # (Auto) 0.5 Eos # (Auto) 0.1 Baso # (Auto) 0.0 Abs Immat Gran (auto) 0.13 H Absolute Neuts (auto) 15.5 H Absolute Nucleated RBC 0.020 H Nucleated RBC % (auto) 0.1 Sodium 150 H Potassium 2.8 L* Chloride 117 H Carbon Dioxide 24 Anion Gap 12 BUN 20 H Creatinine 1.05 Estim Creat Clear Calc 45.4 Estimated GFR > 60 Random Glucose 123 H Lactic Acid F/U @ 4Hr 1.8 Calcium 8.0 L Phosphorus 1.6 L Magnesium 2.0 Total Bilirubin 0.5 AST 23 ALT 10 Alkaline Phosphatase 63 Total Protein 5.0 L Albumin 2.6 L Microbiology Microbiology Results: Microbiology 03/14/25 15:50 Blood - Venous Blood Culture - Preliminary Prelim: GNR Gram Stain only 03/15/25 Unknown Peritoneal Fluid Gram Stain - Final 03/15/25 Unknown Peritoneal Fluid Routine Culture - Final Escherichia coli Viridans streptococcus group 03/15/25 Unknown Peritoneal Fluid Anaerobic Culture - Final Clostridium clostridiiforme Eubacterium limosum 03/14/25 15:54 Blood - Venous Blood Culture - Final No growth after 5 days. 03/14/25 21:15 Urine clean catch - Clean Catch Midstream Urine Culture - Final No growth. Physical Exam Vital Signs: Vital Signs: Last Vital Signs Temp 97.1 F 03/22/25 19:21 Pulse 73 03/22/25 19:21 Resp 18 03/22/25 19:49 BP 136/77 03/22/25 19:21 Pulse Ox 96 03/22/25 19:21 O2 Del Method Nasal Cannula 03/22/25 19:21 O2 Flow Rate 3 03/22/25 19:21 FiO2 40 03/22/25 07:39 BMI result Body Mass Index 23.4 Const: General: cooperative HEENT: Head: Yes normal to inspection Face and sinus: Yes normal facial exam Mouth: Normal oral and palatal mucosa present Teeth and gingiva: dentition normal Eyes: General: appearance normal, both eyes and all related structures Pupils: Equal, round and reactive pupils present Resp: Effort & Inspection: normal respiratory effort Cardio: Rate: regular rate Rhythm: regular rhythm GI: Palpation (GI): Soft to palpation and nontender : General: Yes no CVA tenderness Back/Spine/Pelvis: Back: no CVA tenderness Skin: General skin exam: no rashes or lesions noted Neuro: General: moves all extremities Cranial nerves: Yes Equal, round and reactive pupils present Extrem: General: Yes normal to inspection Psych: Appearance: grossly normal Assessment and Plan Assessment and plan Plan Continue Zosyn,duration to be detemined Check nares MRSA Time Spent With Patient Time: Total time managing care of this patient today ____ minutes.
[2025-03-23] VITALS (8 sets, daily range): BP systolic 126–168; BP diastolic 60–96; PULSE 50–119; RESP 16–24; TEMP 36.1–36.6; O2SAT 93–98
[2025-03-23] MEDS: Albumin Human 25 % 50 ML 100 ML IV (04:55)
--- NOTE | 2025-03-23 05:38 | ECG_ITS ---
Test Reason : cp Blood Pressure : */* mmHG Vent. Rate : 68 BPM Atrial Rate : 68 BPM P-R Int : 116 ms QRS Dur : 152 ms QT Int : 454 ms P-R-T Axes : 95 62 -41 degrees QTcB Int : 482 ms Sinus rhythm with Premature supraventricular complexes and Premature ventricular complexes or Fusion complexes Right bundle branch block Abnormal ECG When compared with ECG of 15-Mar-2025 01:13, Sinus rhythm has replaced Atrial fibrillation Vent. rate has decreased by 46 bpm QRS duration has increased Referred By: Tuan Mandujano Electronically Signed By: DONOVAN NICOLE
[2025-03-23 07:41] LABS: MANUAL DIFF FLAG NO
[2025-03-23 07:46] LABS: Hematocrit 24.4 % (42.0-52.0); Hemoglobin 7.5 g/dl (14.0-18.0); Imm Gran Abs Auto 0.10 X10*3/uL (0.00-0.03); Imm Gran Pct Auto 0.7 % (0.0-0.4); Lymphocytes Absolute Auto 1.7 X10*3/uL (1.2-4.9); Mean Corpuscular HGB Conc 30.7 g/dl (31.0-36.0); Mean Corpuscular Hemoglobin 25.2 pg (27.0-33.0); Mean Corpuscular Volume 81.9 fL (80.0-98.0); NRBC Abs Auto 0.000 X10*3/uL (0.0-0.012); NRBC Pct Auto 0.0 /100WBC (0.0-0.2); Platelet Count 310 X10*3/uL (160-400); Red Blood Count 2.98 X10*6/uL (4.60-5.80); White Blood Count 14.3 X10*3/uL (4.8-10.8)
[2025-03-23 08:07] LABS: Alanine Aminotransferase 8 U/L (0-40); Albumin Level 2.6 g/dL (3.5-5.0); Alkaline Phosphatase 53 U/L (39-117); Anion Gap 11 (12-20); Aspartate Amino Transferase 24 U/L (5-37); Blood Urea Nitrogen 19 mg/dL (9-16); Calcium 8.0 mg/dL (8.4-10.2); Carbon Dioxide 22 mmol/L (22-29); Chloride 120 mmol/L (96-108); Creatinine Clr Calc Pharmacy 48.7; Estimated Glomerular Filt Rate > 60; Magnesium 2.2 mg/dL (1.6-2.6); Potassium 3.2 mmol/L (3.3-5.1); Sodium 150 mmol/L (135-145); Total Protein 4.8 g/dL (6.5-8.0); Triglycerides 134 mg/dL (<150)
[2025-03-23 09:00] LABS: MRSA Nasal PCR NEGATIVE (Negative); SA Nasal PCR NEGATIVE (Negative)
[2025-03-23 09:26] LABS: Chlamydia pneumoniae PCR Not Detected (Not Detect.); Coronavirus 229E PCR Not Detected (Not Detect.); Coronavirus HKU1 PCR Not Detected (Not Detect.); Coronavirus NL63 PCR Not Detected (Not Detect.); Coronavirus OC43 PCR Not Detected (Not Detect.); RSV PCR Not Detected (Not Detect.); Rhino/Enterovirus PCR Not Detected (Not Detect.)
[2025-03-23] MEDS: 0.9 % Sodium Chloride Flush 3 ML SYRINGE IVFLUSH ×2 (09:27→22:06)
[2025-03-23 10:04] LABS: Influenza A H1 PCR Not Detected (Not Detect.); Influenza A H1-2009 PCR Not Detected (Not Detect.); Influenza A H3 PCR Not Detected (Not Detect.); SARS-CoV-2 PCR Not Detected (Not Detect.)
[2025-03-23] MEDS: KCl 20 mEq in 5 % Dextrose 20 MEQ/1,000 ML IV.SOLN 80 MEQ IVCONT (11:41)
--- NOTE | 2025-03-23 13:35 | HO.PM.IMPN ---
Subjective Subjective Date of Service: 03/23/25 Interval History: Extensively complex medical issues overnight and this morning. Worsening anemia, duskiness around stoma site, hypoxia with oxygen demands, mild pleural effusions, aspiration pneumonia, atelectasis, bradycardia-tachycardia with SVT/NSVT, agitation with combativeness requiring restraints and olanzapine use in the setting of multifactorial delirium, RIOS and reduced urinary output, ileus made NPO, hypernatremia 2/2 dehydration with hypokalemia and hypomagnesemia. Extensive family discussion was held today. Patient's case and care was discussed in depth. It was presents with the patient's prognosis was extremely poor, with a likely trajectory that would lead to patient's . Family expressed understanding and appreciation. The patient was transitioned to [facility] today. Review of Systems Review of Systems: Yes Unobtainable due to mental condition and Unobtainable due to mental status Physical Exam Exam: Exam: General: A&O x1 to person only, not to time, place or situation. Uncomfortable, in pain. Cardiac: S1, S2 auscultated with no S3/4, no MRG. variable heart rate 30-150bpm, irregularly irregular, poor perfusion - cold to touch Respiratory: Decreased breath sounds throughout all lung zones bilaterally, with crepitations and crackles auscultated throughout all lung zones, tachypneic and dyspneic, no peripheral or central cyanosis GI/ : Abdomen distended, soft, tender with coughing, colostomy present, with dark brown/ black stool. dusky appearing stoma mucosa, no prolapse. MSK: non-ambulatory, diffuse generalized muscular atrophy of the upper and lower extremities. Enlarged, edematous RUE due to IV infiltration. Skin: mottled peripheral skin Neurological: Normal neurological examination on overview, without obvious CN II-XII abnormalities. Vital Signs: Vital Signs: Last Vital Signs Temp 97.3 F 03/23/25 12:00 Pulse 70 03/23/25 12:00 Resp 16 03/23/25 12:00 BP 134/67 03/23/25 12:00 Pulse Ox 93 03/23/25 12:00 O2 Del Method Nasal Cannula 03/23/25 12:00 O2 Flow Rate 3 03/23/25 12:00 FiO2 40 03/22/25 07:39 BMI result Body Mass Index 23.4 Objective Data Active Medications Acetaminophen (Acetaminophen 325 Mg Tablet) 650 mg PO Q4H PRN PRN Reason: Fever >/= 100, Pain, mild 1-3 Artificial Tears (Artificial Tears 15 Ml Drops) 2 drop EYE-BOTH Q4H PRN PRN Reason: Dry Eyes Docusate Sodium (Docusate Sodium 100 Mg Capsule) 100 mg PO BEDTIME [facility] Glycopyrrolate (Glycopyrrolate 0.2 Mg/Ml Vial) 0.2 mg IVPUSH Q6H PRN PRN Reason: Respiratory secretions Haloperidol (Haloperidol 1 Mg Tablet) 1 mg PO Q4H PRN PRN Reason: Delirium Haloperidol Lactate (Haloperidol Lactate 5 Mg/Ml Vial) 0.5 mg IVPUSH Q4H PRN PRN Reason: Delirium Ibuprofen (Ibuprofen 400 Mg Tablet) 400 mg PO Q6H PRN PRN Reason: Fever >/= 100, Pain, mild 1-3 Morphine Sulfate (Morphine Sulfate Oral Flor 10 Mg/5 Ml Solution) 10 mg PO Q4H PRN PRN Reason: Pain, Moderate(Pain Scale 4-6) Morphine Sulfate (Morphine Sulfate 4 Mg/Ml Cartridge) 2 mg IVPUSH Q1H PRN PRN Reason: Pain, Severe (7-10)/ RR>/=24 Nystatin (Nystatin Oral Susp 500,000 Unit/5 Ml Oral.Susp) 400,000 unit BUCCAL QID [facility]; Protocol Last Admin: 03/23/25 09:28 Dose: Not Given Documented By: ELAN Non-Admin Reason: Patient Asleep Ondansetron HCl (Ondansetron Hcl 4 Mg/2 Ml Vial) 4 mg IVPUSH Q8H PRN PRN Reason: Nausea and Vomiting Ondansetron HCl (Ondansetron Odt 4 Mg Tab.Rapdis) 4 mg TRANSLINGU Q8H PRN PRN Reason: Nausea and Vomiting Ondansetron HCl (Ondansetron Hcl 4 Mg/2 Ml Vial) 4 mg IVPUSH Q8H PRN PRN Reason: Nausea and Vomiting Pantoprazole Sodium (Pantoprazole Sodium 40 Mg/10 Ml Vial) 40 mg IVPUSH DAILY@0630 [facility] Last Admin: 03/23/25 06:15 Dose: 40 mg Documented By: AMARI Sodium Chloride (0.9 % Sodium Chloride Flush 3 Ml Syringe) 3 ml IVFLUSH QSHIFT [facility] Last Admin: 03/23/25 09:27 Dose: 3 ml Documented By: ELAN Tamsulosin HCl (Tamsulosin Hcl 0.4 Mg Capsule) 0.4 mg PO BEDTIME [facility] Last Admin: 03/22/25 20:20 Dose: 0.4 mg Documented By: AMARI Labs 03/23/25 07:07 03/23/25 07:07 Labs: Laboratory Results - last 24 hr 03/22/25 03/22/25 03/23/25 17:20 23:52 07:07 MCV 81.9 MCH 25.2 L MCHC 30.7 L RDW 16.8 H Plt Count 310 MPV 9.3 L Immature Gran % (Auto) 0.7 H Neut % (Auto) 81.3 H Lymph % (Auto) 12.1 L [place] % (Auto) 4.4 Eos % (Auto) 1.4 Baso % (Auto) 0.1 Lymph # (Auto) 1.7 [place] # (Auto) 0.6 Eos # (Auto) 0.2 Baso # (Auto) 0.0 Abs Immat Gran (auto) 0.10 H Absolute Neuts (auto) 11.6 H Absolute Nucleated RBC 0.000 Nucleated RBC % (auto) 0.0 Anion Gap 11 L Estim Creat Clear Calc 48.7 Estimated GFR > 60 Random Glucose 170 H Calcium 8.0 L Phosphorus 1.9 L Magnesium 2.2 Total Bilirubin 0.4 AST 24 ALT 8 Alkaline Phosphatase 53 Total Protein 4.8 L Albumin 2.6 L Triglycerides 134 Nasal Screen MRSA (PCR) NEGATIVE Nasal S. aureus Screen NEGATIVE Nasal MRSA/S.aureus Interp SEE NOTE Respiratory Panel Hunt See Note Adenovirus (Rapid PCR) Not Detected B.pert (TEM-PCR) Not Detected B.parapertussis DNA PCR Not Detected C. pneumoniae DNA (PCR) Not Detected Coronavirus OC43 (PCR) Not Detected Coronavirus HKU1 (PCR) Not Detected Coronavirus 229E (PCR) Not Detected Coronavirus NL63 (PCR) Not Detected Human Metapneumovir PCR Not Detected Influenza A (RT-PCR) Not Detected Influenza A (H1) PCR Not Detected Influ A (H1/09) PCR Not Detected Influenza A (H3) PCR Not Detected Influenza B (RT-PCR) Not Detected M. pneumoniae (PCR) Not Detected Parainfluenza 1 (PCR) Not Detected Parainfluenza 2 (PCR) Not Detected Parainfluenza 3 (PCR) Not Detected Parainfluenza 4 (PCR) Not Detected RSV (PCR) Not Detected Entero/Rhino (PCR) Not Detected SARS-CoV-2 RNA (RT-PCR) Not Detected Assessment and Plan (1) HTN (hypertension): Status: Acute (2) CHF (congestive heart failure): Status: Acute (3) A-fib: Status: Acute (4) HLD (hyperlipidemia): Status: Acute (5) Ileus: Status: Acute (6) RIOS (acute kidney injury): Status: Acute (7) Acute lactic acidosis: Status: Acute (8) Hypokalemia: Status: Acute (9) Hypernatremia: Status: Acute (10) UTI (urinary tract infection): Status: Acute (11) Acute anemia: Status: Acute (12) Severe sepsis: Status: Acute (13) Gram-negative bacteremia: Status: Acute (14) Delirium: Status: Acute (15) Dementia: Status: Acute (16) SVT (supraventricular tachycardia): Status: Acute (17) Bradycardia: Status: Acute Plan 89 yo male from the [facility] with a pmhx significant for dementia, a fib on eliquis, HTN, CHF, HLD and BPH, who presented to the ED due to abd pain and chest pain x4 hours and found to have perforated viscus complicated by severe sepsis & acute CHF exacerbation. Progressively increasing medical complexity in patient care summized as: Worsening anemia, duskiness around stoma site, hypoxia with oxygen demands, mild pleural effusions, aspiration pneumonia, atelectasis, bradycardia-tachycardia with SVT/NSVT, agitation with combativeness requiring restraints and olanzapine use in the setting of multifactorial delirium, RIOS and reduced urinary output, ileus made NPO, hypernatremia 2/2 dehydration with hypokalemia and hypomagnesemia, lack of IV access with infiltration of multiple IV c/b RUE edema. After family discussion today, the patient was transitioned to comfort measures only. Comfort Measures Only Goals of Care: The goal is to provide maximal comfort and preserved dignity, allowing for a natural dying process. Life prolonging treatments are not being pursued due to multi organ dysfunction with terminal diagnosis, poor prognosis and overwhelming disease burden. Advanced directives: Patient's advanced directive is on file and reviewed. The patient's surrogate(s), are aware and agree with the plan for [facility]. Family Meeting held 03/23/2025 with decision to transition to [facility]. Interventions: All interventions will be focused on symptom management including pain, anxiety, dyspnea, nausea/vomiting. Resuscitation status: DNR/DNI/DNH orders are in place - [facility] orders are in place. Total time managing care of this patient today: 60 minutes. Quality Stroke Does the patient have a stroke diagnosis?: No VTE Prior VTE?: No VTE Risk Level:: Surgical - low VTE Device Contraindication: N/A - Device Ordered VTE Drug Contraindication: Treatment Not Indicated
--- NOTE | 2025-03-23 15:19 | P.PNGS_ITS ---
Subjective Subjective Date of Service: 03/23/25 Interval history: pt looks ok - awakens saying he is hungry - ostomy with dark fluid viable xu drain serous fluid Physical Exam 2 Vital Signs: Vital Signs: Last Vital Signs Temp 97.3 F 03/23/25 12:00 Pulse 70 03/23/25 12:00 Resp 16 03/23/25 12:00 BP 134/67 03/23/25 12:00 Pulse Ox 93 03/23/25 12:00 O2 Del Method Nasal Cannula 03/23/25 12:00 O2 Flow Rate 3 03/23/25 12:00 FiO2 40 03/22/25 07:39 BMI result Body Mass Index 23.4 GI: Other: soft nontender ostomy ok midline ok Objective Data Active Medications Acetaminophen (Acetaminophen 325 Mg Tablet) 650 mg PO Q4H PRN PRN Reason: Fever >/= 100, Pain, mild 1-3 Artificial Tears (Artificial Tears 15 Ml Drops) 2 drop EYE-BOTH Q4H PRN PRN Reason: Dry Eyes Docusate Sodium (Docusate Sodium 100 Mg Capsule) 100 mg PO BEDTIME [facility] Glycopyrrolate (Glycopyrrolate 0.2 Mg/Ml Vial) 0.2 mg IVPUSH Q6H PRN PRN Reason: Respiratory secretions Haloperidol (Haloperidol 1 Mg Tablet) 1 mg PO Q4H PRN PRN Reason: Delirium Haloperidol Lactate (Haloperidol Lactate 5 Mg/Ml Vial) 0.5 mg IVPUSH Q4H PRN PRN Reason: Delirium Ibuprofen (Ibuprofen 400 Mg Tablet) 400 mg PO Q6H PRN PRN Reason: Fever >/= 100, Pain, mild 1-3 Morphine Sulfate (Morphine Sulfate Oral Flor 10 Mg/5 Ml Solution) 10 mg PO Q4H PRN PRN Reason: Pain, Moderate(Pain Scale 4-6) Morphine Sulfate (Morphine Sulfate 4 Mg/Ml Cartridge) 2 mg IVPUSH Q1H PRN PRN Reason: Pain, Severe (7-10)/ RR>/=24 Nystatin (Nystatin Oral Susp 500,000 Unit/5 Ml Oral.Susp) 400,000 unit BUCCAL QID [facility]; Protocol Last Admin: 03/23/25 14:06 Dose: Not Given Documented By: ELAN Non-Admin Reason: Patient Asleep Ondansetron HCl (Ondansetron Hcl 4 Mg/2 Ml Vial) 4 mg IVPUSH Q8H PRN PRN Reason: Nausea and Vomiting Ondansetron HCl (Ondansetron Odt 4 Mg Tab.Rapdis) 4 mg TRANSLINGU Q8H PRN PRN Reason: Nausea and Vomiting Ondansetron HCl (Ondansetron Hcl 4 Mg/2 Ml Vial) 4 mg IVPUSH Q8H PRN PRN Reason: Nausea and Vomiting Pantoprazole Sodium (Pantoprazole Sodium 40 Mg/10 Ml Vial) 40 mg IVPUSH DAILY@0630 [facility] Last Admin: 03/23/25 06:15 Dose: 40 mg Documented By: AMARI Sodium Chloride (0.9 % Sodium Chloride Flush 3 Ml Syringe) 3 ml IVFLUSH QSHIFT [facility] Last Admin: 03/23/25 09:27 Dose: 3 ml Documented By: ELAN Tamsulosin HCl (Tamsulosin Hcl 0.4 Mg Capsule) 0.4 mg PO BEDTIME [facility] Last Admin: 03/22/25 20:20 Dose: 0.4 mg Documented By: AMARI Labs 03/23/25 07:07 03/23/25 07:07 Labs: Laboratory Results - last 24 hr 03/22/25 03/22/25 03/23/25 17:20 23:52 07:07 MCV 81.9 MCH 25.2 L MCHC 30.7 L RDW 16.8 H Plt Count 310 MPV 9.3 L Immature Gran % (Auto) 0.7 H Neut % (Auto) 81.3 H Lymph % (Auto) 12.1 L [place] % (Auto) 4.4 Eos % (Auto) 1.4 Baso % (Auto) 0.1 Lymph # (Auto) 1.7 [place] # (Auto) 0.6 Eos # (Auto) 0.2 Baso # (Auto) 0.0 Abs Immat Gran (auto) 0.10 H Absolute Neuts (auto) 11.6 H Absolute Nucleated RBC 0.000 Nucleated RBC % (auto) 0.0 Anion Gap 11 L Estim Creat Clear Calc 48.7 Estimated GFR > 60 Random Glucose 170 H Calcium 8.0 L Phosphorus 1.9 L Magnesium 2.2 Total Bilirubin 0.4 AST 24 ALT 8 Alkaline Phosphatase 53 Total Protein 4.8 L Albumin 2.6 L Triglycerides 134 Nasal Screen MRSA (PCR) NEGATIVE Nasal S. aureus Screen NEGATIVE Nasal MRSA/S.aureus Interp SEE NOTE Respiratory Panel [facility] See Note Adenovirus (Rapid PCR) Not Detected B.pert (TEM-PCR) Not Detected B.parapertussis DNA PCR Not Detected C. pneumoniae DNA (PCR) Not Detected Coronavirus OC43 (PCR) Not Detected Coronavirus HKU1 (PCR) Not Detected Coronavirus 229E (PCR) Not Detected Coronavirus NL63 (PCR) Not Detected Human Metapneumovir PCR Not Detected Influenza A (RT-PCR) Not Detected Influenza A (H1) PCR Not Detected Influ A (H1/09) PCR Not Detected Influenza A (H3) PCR Not Detected Influenza B (RT-PCR) Not Detected M. pneumoniae (PCR) Not Detected Parainfluenza 1 (PCR) Not Detected Parainfluenza 2 (PCR) Not Detected Parainfluenza 3 (PCR) Not Detected Parainfluenza 4 (PCR) Not Detected RSV (PCR) Not Detected Entero/Rhino (PCR) Not Detected SARS-CoV-2 RNA (RT-PCR) Not Detected Procedures Date of Service Date of Service: 03/23/25 Progress Note: A&P Assessment and plan (1) Bowel perforation: Status: Acute Assessment and Plan: pt a week s/p explor lap with Clarissa for pef tics with abscesses - doing ok considering everythimg - krishnan dn h was down nd transfused now doing ok. wbc ok too today can advance diet to soft if swallowing safely - looks like tolerating liquids well Time Spent With Patient Time: Total time managing care of this patient today ____ minutes. Quality Stroke Does the patient have a stroke diagnosis?: No VTE Prior VTE?: No VTE Risk Level:: Surgical - low VTE Device Contraindication: N/A - Device Ordered VTE Drug Contraindication: Treatment Not Indicated
[2025-03-24 04:00] VITALS: RESP 18
[2025-03-24 07:26] VITALS: RESP 18
[2025-03-24 11:09] VITALS: RESP 14
--- NOTE | 2025-03-24 11:50 | P.PNIM_ITS ---
Subjective Subjective Date of Service: 03/24/25 Interval History: Seen and examined Appears comfortable Physical Exam 2 Exam: Exam: Appears comfortable No respiratory distress Vital Signs: Vital Signs: Last Vital Signs Temp 97.4 F 03/23/25 21:39 Pulse 69 03/23/25 21:39 Resp 14 03/24/25 11:09 BP 143/63 H 03/23/25 21:39 Pulse Ox 95 03/23/25 21:39 O2 Del Method Nasal Cannula 03/23/25 21:39 O2 Flow Rate 1 03/23/25 21:39 FiO2 40 03/22/25 07:39 BMI result Body Mass Index 23.4 Objective Data Active Medications Acetaminophen (Acetaminophen 325 Mg Tablet) 650 mg PO Q4H PRN PRN Reason: Fever >/= 100, Pain, mild 1-3 Artificial Tears (Artificial Tears 15 Ml Drops) 2 drop EYE-BOTH Q4H PRN PRN Reason: Dry Eyes Docusate Sodium (Docusate Sodium 100 Mg Capsule) 100 mg PO BEDTIME [facility] Last Admin: 03/23/25 20:52 Dose: Not Given Documented By: KAREN Non-Admin Reason: pt too drowsy Glycopyrrolate (Glycopyrrolate 0.2 Mg/Ml Vial) 0.2 mg IVPUSH Q6H PRN PRN Reason: Respiratory secretions Haloperidol (Haloperidol 1 Mg Tablet) 1 mg PO Q4H PRN PRN Reason: Delirium Haloperidol Lactate (Haloperidol Lactate 5 Mg/Ml Vial) 0.5 mg IVPUSH Q4H PRN PRN Reason: Delirium Ibuprofen (Ibuprofen 400 Mg Tablet) 400 mg PO Q6H PRN PRN Reason: Fever >/= 100, Pain, mild 1-3 Morphine Sulfate (Morphine Sulfate Oral Flor 10 Mg/5 Ml Solution) 10 mg PO Q4H PRN PRN Reason: Pain, Moderate(Pain Scale 4-6) Morphine Sulfate (Morphine Sulfate 4 Mg/Ml Cartridge) 2 mg IVPUSH Q1H PRN PRN Reason: Pain, Severe (7-10)/ RR>/=24 Nystatin (Nystatin Oral Susp 500,000 Unit/5 Ml Oral.Susp) 400,000 unit BUCCAL QID [facility]; Protocol Last Admin: 03/23/25 20:52 Dose: Not Given Documented By: KAREN Non-Admin Reason: Patient Asleep Ondansetron HCl (Ondansetron Hcl 4 Mg/2 Ml Vial) 4 mg IVPUSH Q8H PRN PRN Reason: Nausea and Vomiting Ondansetron HCl (Ondansetron Odt 4 Mg Tab.Rapdis) 4 mg TRANSLINGU Q8H PRN PRN Reason: Nausea and Vomiting Ondansetron HCl (Ondansetron Hcl 4 Mg/2 Ml Vial) 4 mg IVPUSH Q8H PRN PRN Reason: Nausea and Vomiting Pantoprazole Sodium (Pantoprazole Sodium 40 Mg/10 Ml Vial) 40 mg IVPUSH DAILY@0630 [facility] Last Admin: 03/24/25 05:14 Dose: 40 mg Documented By: KAREN Sodium Chloride (0.9 % Sodium Chloride Flush 3 Ml Syringe) 3 ml IVFLUSH QSHIFT [facility] Last Admin: 03/23/25 22:06 Dose: 3 ml Documented By: KAREN Tamsulosin HCl (Tamsulosin Hcl 0.4 Mg Capsule) 0.4 mg PO BEDTIME [facility] Last Admin: 03/23/25 20:53 Dose: Not Given Documented By: KAREN Non-Admin Reason: Patient Asleep Labs 03/23/25 07:07 03/23/25 07:07 Microbiology Microbiology Results: Microbiology 03/14/25 15:50 Blood Culture - Preliminary Blood - Venous Bacteroides uniformis Assessment and Plan (1) HTN (hypertension): Status: Acute (2) CHF (congestive heart failure): Status: Acute (3) A-fib: Status: Acute (4) HLD (hyperlipidemia): Status: Acute (5) Ileus: Status: Acute (6) RIOS (acute kidney injury): Status: Acute (7) Acute lactic acidosis: Status: Acute (8) Hypokalemia: Status: Acute (9) Hypernatremia: Status: Acute (10) UTI (urinary tract infection): Status: Acute (11) Acute anemia: Status: Acute (12) Severe sepsis: Status: Acute (13) Gram-negative bacteremia: Status: Acute (14) Delirium: Status: Acute (15) Dementia: Status: Acute (16) SVT (supraventricular tachycardia): Status: Acute (17) Bradycardia: Status: Acute Plan 89 yo male from the [facility] with a pmhx significant for dementia, a fib on eliquis, HTN, CHF, HLD and BPH, who presented to the ED due to abd pain and chest pain x4 hours and found to have perforated viscus complicated by severe sepsis & acute CHF exacerbation. Today: Appears comfortable. Notified case management of hospice consultation. continue current care. From Previous Provider: Progressively increasing medical complexity in patient care summized as: Worsening anemia, duskiness around stoma site, hypoxia with oxygen demands, mild pleural effusions, aspiration pneumonia, atelectasis, bradycardia-tachycardia with SVT/NSVT, agitation with combativeness requiring restraints and olanzapine use in the setting of multifactorial delirium, RIOS and reduced urinary output, ileus made NPO, hypernatremia 2/2 dehydration with hypokalemia and hypomagnesemia, lack of IV access with infiltration of multiple IV c/b RUE edema. After family discussion today, the patient was transitioned to comfort measures only. Comfort Measures Only Goals of Care: The goal is to provide maximal comfort and preserved dignity, allowing for a natural dying process. Life prolonging treatments are not being pursued due to multi organ dysfunction with terminal diagnosis, poor prognosis and overwhelming disease burden. Advanced directives: Patient's advanced directive is on file and reviewed. The patient's surrogate(s), are aware and agree with the plan for [facility]. Family Meeting held 03/23/2025 with decision to transition to [facility]. Interventions: All interventions will be focused on symptom management including pain, anxiety, dyspnea, nausea/vomiting. Resuscitation status: DNR/DNI/DNH orders are in place - [facility] orders are in place. Total time managing care of this patient today: 60 minutes. Quality Stroke Does the patient have a stroke diagnosis?: No VTE Prior VTE?: No VTE Risk Level:: Surgical - low VTE Device Contraindication: N/A - Device Ordered VTE Drug Contraindication: Treatment Not Indicated
[2025-03-24] MEDS: Nystatin Oral Susp 500,000 UNIT/5 ML ORAL.SUSP 400000 UNIT BUCCAL (12:31)
[2025-03-24] MEDS: 0.9 % Sodium Chloride Flush 3 ML SYRINGE IVFLUSH (12:31)
--- NOTE | 2025-03-24 15:01 | P.PNGS_ITS ---
Subjective Subjective Date of Service: 03/24/25 Interval history: Doing okay Physical Exam 2 Vital Signs: Vital Signs: Last Vital Signs Temp 97.4 F 03/23/25 21:39 Pulse 69 03/23/25 21:39 Resp 14 03/24/25 11:09 BP 143/63 H 03/23/25 21:39 Pulse Ox 95 03/23/25 21:39 O2 Del Method Nasal Cannula 03/23/25 21:39 O2 Flow Rate 1 03/23/25 21:39 FiO2 40 03/22/25 07:39 BMI result Body Mass Index 23.4 Objective Data Active Medications Acetaminophen (Acetaminophen 325 Mg Tablet) 650 mg PO Q4H PRN PRN Reason: Fever >/= 100, Pain, mild 1-3 Artificial Tears (Artificial Tears 15 Ml Drops) 2 drop EYE-BOTH Q4H PRN PRN Reason: Dry Eyes Docusate Sodium (Docusate Sodium 100 Mg Capsule) 100 mg PO BEDTIME [facility] Last Admin: 03/23/25 20:52 Dose: Not Given Documented By: KAREN Non-Admin Reason: pt too drowsy Glycopyrrolate (Glycopyrrolate 0.2 Mg/Ml Vial) 0.2 mg IVPUSH Q6H PRN PRN Reason: Respiratory secretions Haloperidol (Haloperidol 1 Mg Tablet) 1 mg PO Q4H PRN PRN Reason: Delirium Haloperidol Lactate (Haloperidol Lactate 5 Mg/Ml Vial) 0.5 mg IVPUSH Q4H PRN PRN Reason: Delirium Ibuprofen (Ibuprofen 400 Mg Tablet) 400 mg PO Q6H PRN PRN Reason: Fever >/= 100, Pain, mild 1-3 Morphine Sulfate (Morphine Sulfate Oral Flor 10 Mg/5 Ml Solution) 10 mg PO Q4H PRN PRN Reason: Pain, Moderate(Pain Scale 4-6) Morphine Sulfate (Morphine Sulfate 4 Mg/Ml Cartridge) 2 mg IVPUSH Q1H PRN PRN Reason: Pain, Severe (7-10)/ RR>/=24 Nystatin (Nystatin Oral Susp 500,000 Unit/5 Ml Oral.Susp) 400,000 unit BUCCAL QID [facility]; Protocol Last Admin: 03/24/25 12:31 Dose: 400,000 unit Documented By: ADAM Ondansetron HCl (Ondansetron Hcl 4 Mg/2 Ml Vial) 4 mg IVPUSH Q8H PRN PRN Reason: Nausea and Vomiting Ondansetron HCl (Ondansetron Odt 4 Mg Tab.Rapdis) 4 mg TRANSLINGU Q8H PRN PRN Reason: Nausea and Vomiting Ondansetron HCl (Ondansetron Hcl 4 Mg/2 Ml Vial) 4 mg IVPUSH Q8H PRN PRN Reason: Nausea and Vomiting Pantoprazole Sodium (Pantoprazole Sodium 40 Mg/10 Ml Vial) 40 mg IVPUSH DAILY@0630 [facility] Last Admin: 03/24/25 05:14 Dose: 40 mg Documented By: KAREN Sodium Chloride (0.9 % Sodium Chloride Flush 3 Ml Syringe) 3 ml IVFLUSH QSHIFT [facility] Last Admin: 03/24/25 12:31 Dose: 3 ml Documented By: ADAM Tamsulosin HCl (Tamsulosin Hcl 0.4 Mg Capsule) 0.4 mg PO BEDTIME [facility] Last Admin: 03/23/25 20:53 Dose: Not Given Documented By: KAREN Non-Admin Reason: Patient Asleep Labs 03/23/25 07:07 03/23/25 07:07 Microbiology Microbiology Results: Microbiology 03/14/25 15:50 Blood Culture - Preliminary Blood - Venous Bacteroides uniformis Procedures Date of Service Date of Service: 03/24/25 Progress Note: A&P Assessment and plan (1) Bowel perforation: Status: Acute Assessment and Plan: Patient is comfort measures only. I think that this is fair Time Spent With Patient Time: Total time managing care of this patient today ____ minutes. Quality Stroke Does the patient have a stroke diagnosis?: No VTE Prior VTE?: No VTE Risk Level:: Surgical - low VTE Device Contraindication: N/A - Device Ordered VTE Drug Contraindication: Treatment Not Indicated
[2025-03-24 16:00] VITALS: RESP 21
[2025-03-24 20:00] VITALS: BP 140/61; PULSE 105; RESP 18; TEMP 36.1; O2SAT 94
--- NOTE | 2025-03-24 22:46 | PC.NURSE ---
declines meds. opts to remain in recliner at this time. denies pain, nausea, anxiety. alert oriented to self, hard of hearing, pleasantly confused. sitter and fall prx in place
[2025-03-25] VITALS: RESP 18
--- NOTE | 2025-03-25 08:06 | P.PNGS_ITS ---
Subjective Subjective Date of Service: 03/25/25 Interval history: patient with SEVERITY OF ILLNESS COORDINATOR status now as per nursing staff, no events patient has been on the recliner appears to have been comfortable Physical Exam 2 Vital Signs: Vital Signs: Last Vital Signs Temp 97.0 F 03/24/25 20:00 Pulse 105 H 03/24/25 20:00 Resp 18 03/25/25 00:00 BP 140/61 H 03/24/25 20:00 Pulse Ox 94 03/24/25 20:00 O2 Del Method Nasal Cannula 03/24/25 20:00 O2 Flow Rate 1 03/24/25 20:00 FiO2 40 03/22/25 07:39 BMI result Body Mass Index 23.4 Const: Other: on recliner, appears comfortable, very drowsy GI: Other: stoma functioning Palpation (GI): Soft to palpation, not firm and no guarding Objective Data Active Medications Acetaminophen (Acetaminophen 325 Mg Tablet) 650 mg PO Q4H PRN PRN Reason: Fever >/= 100, Pain, mild 1-3 Artificial Tears (Artificial Tears 15 Ml Drops) 2 drop EYE-BOTH Q4H PRN PRN Reason: Dry Eyes Docusate Sodium (Docusate Sodium 100 Mg Capsule) 100 mg PO BEDTIME [facility] Last Admin: 03/24/25 23:05 Dose: Not Given Documented By: KARMEN Non-Admin Reason: Patient Refused Glycopyrrolate (Glycopyrrolate 0.2 Mg/Ml Vial) 0.2 mg IVPUSH Q6H PRN PRN Reason: Respiratory secretions Haloperidol (Haloperidol 1 Mg Tablet) 1 mg PO Q4H PRN PRN Reason: Delirium Haloperidol Lactate (Haloperidol Lactate 5 Mg/Ml Vial) 0.5 mg IVPUSH Q4H PRN PRN Reason: Delirium Ibuprofen (Ibuprofen 400 Mg Tablet) 400 mg PO Q6H PRN PRN Reason: Fever >/= 100, Pain, mild 1-3 Morphine Sulfate (Morphine Sulfate Oral Flor 10 Mg/5 Ml Solution) 10 mg PO Q4H PRN PRN Reason: Pain, Moderate(Pain Scale 4-6) Morphine Sulfate (Morphine Sulfate 4 Mg/Ml Cartridge) 2 mg IVPUSH Q1H PRN PRN Reason: Pain, Severe (7-10)/ RR>/=24 Nystatin (Nystatin Oral Susp 500,000 Unit/5 Ml Oral.Susp) 400,000 unit BUCCAL QID [facility]; Protocol Last Admin: 03/24/25 23:05 Dose: Not Given Documented By: KARMEN Non-Admin Reason: Patient Refused Ondansetron HCl (Ondansetron Hcl 4 Mg/2 Ml Vial) 4 mg IVPUSH Q8H PRN PRN Reason: Nausea and Vomiting Ondansetron HCl (Ondansetron Odt 4 Mg Tab.Rapdis) 4 mg TRANSLINGU Q8H PRN PRN Reason: Nausea and Vomiting Pantoprazole Sodium (Pantoprazole Sodium 40 Mg/10 Ml Vial) 40 mg IVPUSH DAILY@0630 [facility] Last Admin: 03/25/25 06:44 Dose: Not Given Documented By: KARMEN Non-Admin Reason: Patient Refused Sodium Chloride (0.9 % Sodium Chloride Flush 3 Ml Syringe) 3 ml IVFLUSH QSHIFT [facility] Last Admin: 03/25/25 05:18 Dose: Not Given Documented By: KARMEN Non-Admin Reason: Previously Administered Tamsulosin HCl (Tamsulosin Hcl 0.4 Mg Capsule) 0.4 mg PO BEDTIME [facility] Last Admin: 03/24/25 23:05 Dose: Not Given Documented By: KARMEN Non-Admin Reason: Patient Refused Labs 03/23/25 07:07 03/23/25 07:07 Microbiology Microbiology Results: Microbiology 03/14/25 15:50 Blood Culture - Preliminary Blood - Venous Bacteroides uniformis Procedures Date of Service Date of Service: 03/25/25 Progress Note: A&P Assessment and plan (1) Bowel perforation: Status: Acute Assessment and Plan: status post Clarissa's procedure currently SEVERITY OF ILLNESS COORDINATOR abdomen is soft and benign stoma functioning well Time Spent With Patient Time: Total time managing care of this patient today ____ minutes. Quality Stroke Does the patient have a stroke diagnosis?: No VTE Prior VTE?: No VTE Risk Level:: Surgical - low VTE Device Contraindication: N/A - Device Ordered VTE Drug Contraindication: Treatment Not Indicated
--- NOTE | 2025-03-25 10:45 | MHC.CLN ---
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
--- NOTE | 2025-03-25 14:18 | MHC.CM.PN ---
Addendum entered by Idania Mohan 03/25/25 16:08: SECOND IMM GIVEN 03/25. 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 THIS CM SPOKE WITH CREASING MACHINE OPERATOR FRANCISCA AT THE [facility], SHE SPOKE WITH THEIR DON AND THEY WOULD LIKE TO ACCEPT PATIENT BACK FOR END OF LIFE CARE. PER CREASING MACHINE OPERATOR FRANCISCA, THEY WOULD PREFER THE PATIENT TO RETURN TO THEM THIS EVENING, AND [facility] WILL SIGN PATIENT ONTO THEIR HOSPICE SERVICES TOMORROW MORNING, THEY WILL UTILIZE COMFORT MEDS OVERNIGHT NEEDED FOR THE PATIENT. THIS CM MET WITH PATIENT AND HIS FAMILY PRESENT AT BEDSIDE, THEY ARE IN AGREEMENT AND WOULD LIKE THE PATIENT TO RETURN TO THE [facility]. BLS/CARL CAN TRANSPORT PATIENT TO THE [facility] AT 4PM THIS EVENING. HOSPITALIST AWARE.
--- NOTE | 2025-03-25 15:07 | P.DS_ITS ---
DS: Providers Provider Date of Service: 03/25/25 Date of admission: 03/14/25 22:28 Date of discharge: 03/25/25 Primary care physician: Bruno Guillen MD Consults: 03/14/25 22:38 Consult to Hospitalist Stat Comment: Consulting Provider: [facility] Hospitalists Reason For Exam: preop for emergent surgery in am 03/18/25 08:01 Consult to Ostomy Care Routine 03/18/25 13:49 Consult to Infectious Diseases Routine Consulting Provider: [facility] Infectious Disease Center Reason for consultation: peritonitis, gram negative seth bacteremia 03/23/25 12:39 Consult to Case Management Routine Comment: Consult to Batch Freezer Stat Comment: Consult to Hospice Stat Comment: 03/24/25 11:51 Consult to Case Management Routine Comment: Hospice DS: Diagnosis Discharge Diagnosis (1) Bowel perforation: Status: Acute DS: Summary Hospital Course Hospital Course: 89 yo male from the [facility] with a pmhx significant for dementia, a fib on eliquis, HTN, CHF, HLD and BPH, who presented to the ED due to abd pain and chest pain x4 hours and found to have perforated viscus complicated by severe sepsis & acute CHF exacerbation. Progressively increasing medical complexity in patient care summized as: Worsening anemia, duskiness around stoma site, hypoxia with oxygen demands, mild pleural effusions, aspiration pneumonia, atelectasis, bradycardia-tachycardia with SVT/NSVT, agitation with combativeness requiring restraints and olanzapine use in the setting of multifactorial delirium, RIOS and reduced urinary output, ileus made NPO, hypernatremia 2/2 dehydration with hypokalemia and hypomagnesemia, lack of IV access with infiltration of multiple IV c/b RUE edema. After family discussion today, the patient was transitioned to comfort measures only. Comfort Measures Only Goals of Care: The goal is to provide maximal comfort and preserved dignity, allowing for a natural dying process. Life prolonging treatments are not being pursued due to multi organ dysfunction with terminal diagnosis, poor prognosis and overwhelming disease burden. Advanced directives: Patient's advanced directive is on file and reviewed. The patient's surrogate(s), are aware and agree with the plan for ORTHOPEDICS TEACHER. Family Meeting held 03/23/2025 with decision to transition to ORTHOPEDICS TEACHER. Interventions: All interventions will be focused on symptom management including pain, anxiety, dyspnea, nausea/vomiting. Resuscitation status: DNR/DNI/DNH orders are in place - ORTHOPEDICS TEACHER orders are in place. 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 Incentive spirometry ID consult ordered, recommendations greatly appreciated KUB performed, followed up by CT abdomen pelvis with oral contrast Revealed evidence of possible ileus, without evidence of perforation. The patient was subsequently made NPO, and PPN to be considered Conservative management & bowel rest indicated at this time Acute hypoxic respiratory failure Acute CHF exacerbation Possible aspiration pneumonia Patient has elevated JVP bilateral, with reduced breath sounds at the bases. signifncat rales throughout all lung zones Elevated NT proBNP Respiratory viral panel in process Improved with furosemide 20 mg IV once. Readministering 20mg furosemide IV PRN RESOLVING Acute anemia Blood loss anemia Progressively worsening hemoglobin, currently 6.8 mg/dL. Decreased by 1 mg/dL compared to yesterday. No overt source of bleeding, other than possible new colostomy/ GI tract. We consented the patient over the telephone for blood transfusion. Type and screen in system 03/20 Transfused 1u PRBC 03/20 with improvement in Hgb. PLAN - pantoprazole 40 mg b.i.d. IV to address possible UGIB if present - pending repeat CBC - transfuse hemoglobin to > 8 mg/dL - at risk for TACO; will require furosemide 10 mg IV between each transfusion (if receiving more than 1) Leukocytosis Continue to monitor closely If pyrexia, obtain blood cultures and expand antibiotic coverage Possible stress-induced Concern for possible abdominal abscess - CT-AP with IV contrast Hypernatremia Increase in sodium from 140-146-150. This is borderline at this time Repeat BMP Has required D5W to resolve hypernatremia Agitation and combativeness Dementia Patient has baseline dementia, that has been worsened acutely by metabolic encephalopathy. Unfortunately, the patient has become significantly combative. Patient has a baseline right bundle branch block therefore falsely prolonging QTC. QTC 420-460 milliseconds Within safe range Intramuscular olanzapine 2.5 mg suffices to reduce patient's combativeness to be used PRN RIOS, suspect ATN from sepsis, resolved IVF, avoid nephrotoxin and follow renal function closely Delirium and metabolic encephalopathy --likely multifactorial d/t sepsis, RIOS, anesthetics monitor closely, presntly has sitter Acute lactic acidosis, secondary to severe sepsis lactic trended down 4.1-->2.7 Recurrent lactic acidosis 3.8 --> 1.4 IVF Anemia, post op, H/H stable, no indication for transfusion Transfuse for Hgb <8.0mg/dl UTI zosyn as above follow urine culture A fib with RVR, likely triggered by sepsis IV Metoprolol PRN for RVR, start schedule oral metoprolol 25 bid, Resume eliquis when ok with surgery HTN Losartan and Norvasc on hold, if peristant high may restart one at a time, starting with Norvasc, starting metoprolol as above BPH hold flomax due to hypotension resume when stable after surgery Time Attestation Discharge Coordination Time (in mins): 35 Quality: Safe Use of Opioids Does Pt have an Active Cancer Diagnosis on the Problem List?: Yes Opioid Measure Date for [facility] Report: 02/23/25 Opioid Measure Time for [facility] Report: 15:19 Quality: Stroke Does the patient have a stroke diagnosis?: No Physical Exam Exam: Exam: General: A&O x1 to person only, not to time, place or situation. Comfortable, not in pain. Cardiac: S1, S2 auscultated with no S3/4, no MRG. variable heart rate 30-150bpm, irregularly irregular, poor perfusion - cold to touch Respiratory: Decreased breath sounds throughout all lung zones bilaterally, with crepitations and crackles auscultated throughout all lung zones, tachypneic and dyspneic, no peripheral or central cyanosis GI/ : Abdomen distended, soft, tender with coughing, colostomy present, with dark brown/ black stool. dusky appearing stoma mucosa, no prolapse. MSK: non-ambulatory, diffuse generalized muscular atrophy of the upper and lower extremities. Enlarged, edematous RUE due to IV infiltration. Skin: mottled peripheral skin Neurological: Normal neurological examination on overview, without obvious CN II-XII abnormalities Vital Signs: Vital Signs: Last Vital Signs Temp 97.0 F 03/24/25 20:00 Pulse 105 H 03/24/25 20:00 Resp 18 03/25/25 00:00 BP 140/61 H 03/24/25 20:00 Pulse Ox 94 03/24/25 20:00 O2 Del Method Nasal Cannula 03/24/25 20:00 O2 Flow Rate 1 03/24/25 20:00 FiO2 40 03/22/25 07:39 BMI result Body Mass Index 23.4 DS: Data Data Completed and Pending Completed studies during hospitalization [Text1]: Pending at discharge 03/15/25 13:56 Surgical [PTH] Routine Discharge Plan Discharge Anticipated Discharge Date/Time: 03/25/25 15:10 Patient Disposition: Hospice - Medical Facility Discharge Diagnosis: diverticular perforation s/p Clarissa procedure c/b sepsis and multiorgan dysfunction currently comfort measures only Referrals: [facility] in [place] [Other] - 1 Week Bruno Guillen MD [Primary Care Provider, Internal Medicine] - 1 Week Discharge Medications: New morphine 4 mg/mL Syringe 2 mg IVPUSH Q1H PRN (Reason: Pain, Severe (7-10)/ RR>/=24) 3 Days Qty: 10 0RF Rx Instructions: Partial Fill upon patient request. morphine 10 mg/5 mL Solution 10 mg PO Q4H PRN (Reason: Pain, Moderate(Pain Scale 4-6)) 3 Days Qty: 100 0RF Rx Instructions: Partial Fill upon patient request. ondansetron HCl (PF) 4 mg/2 mL Solution 4 mg IVPUSH Q8H PRN (Reason: Nausea And Vomiting) Qty: 20 0RF nystatin 100,000 unit/mL Suspension 400,000 unit buccal QID Qty: 60 0RF glycopyrrolate 0.2 mg/mL Solution 0.2 mg IVPUSH Q6H PRN (Reason: Respiratory secretions) 3 Days Qty: 25 0RF haloperidol lactate 5 mg/mL Solution 0.5 mg IVPUSH Q4H PRN (Reason: Delirium) 3 Days Qty: 10 0RF ondansetron 4 mg Tablet,Disintegrating 4 mg translingual Q8H PRN (Reason: Nausea And Vomiting) Qty: 7 0RF pantoprazole [Protonix] 40 mg Recon Soln 40 mg IVPUSH DAILY@0630 Qty: 10 0RF tamsulosin 0.4 mg Capsule 0.4 mg PO BEDTIME 7 Days Qty: 7 0RF Artificial Tears([id number]) 1-0.2-0.2 % Drops 2 drp ophthalmic (eye) Q4H PRN (Reason: Dry Eyes) 3 Days Qty: 15 0RF docusate sodium 100 mg Capsule 100 mg PO BEDTIME 3 Days Qty: 3 0RF haloperidol 1 mg Tablet 1 mg PO Q4H PRN (Reason: Delirium) 3 Days Qty: 18 0RF ibuprofen 400 mg Tablet 400 mg PO Q6H PRN (Reason: Fever >/= 100, Pain, mild 1-3) 3 Days Qty: 12 0RF Continued simethicone 80 mg Tablet,Chewable 80 mg PO BID PRN (Reason: Abdominal Distention) Discontinued amlodipine 5 mg tablet 5 mg PO DAILY potassium chloride 20 mEq tablet,ER particles/crystals 20 meq PO DAILY tamsulosin 0.4 mg capsule 0.4 mg PO BEDTIME losartan 25 mg tablet 25 mg PO DAILY furosemide 20 mg tablet 20 mg PO BID Eliquis 5 mg tablet 5 mg PO BID acetaminophen 325 mg Tablet 650 mg PO Q4H PRN (Reason: Pain) atorvastatin 20 mg Tablet 20 mg PO BEDTIME ondansetron HCl 4 mg Tablet 4 mg PO Q8H PRN (Reason: Nausea And Vomiting) polyethylene glycol 3350 17 gram/dose Powder 17 g PO DAILY PRN (Reason: Constipation) Discharge Orders: Discharge Order (Routine); Ordered 03/25/25 Ordered By: Tuan Mandujano Diet: Advance to usual diet Activity on Discharge: As tolerated Stand Alone Forms: Patient Portal Discharge page Print Language: Rwandan Care Plan Goals: As above Health Concerns: As above [facility] Treatment[facility]
--- NOTE | 2025-03-25 16:17 | HO.OSTOMY ---
Ostomy Nurse: Follow up 89yr old male admitted to [facility] on 03/14/25 - see H&P for detailed history and admission.? Recent transition to MARRIAGE COUNSELOR MINISTER focused care. He had Colostomy creation on 03/16/[address] Gil. ?Chart review [facility] MARRIAGE COUNSELOR MINISTER care. All interventions in place will maintain dignity and comfort. Per direct care team: Coloplast 1 piece pouch #[id number] changed yesterday cut to 35 round applied without complication. Stoma is budded above skin line no pouching concerned noted at this time. No leaking noted at this time. Supplies left at bedside for staff to send with pt at time of d/c.
--- NOTE | 2025-03-25 17:09 | PC.NURSE ---
Family visited today. Pt slept most of the day in recliner. Was able to transfer back to bed with 2 assist. Report called to [facility]. Skin tears re-dressed upon DC. Extra ostomy and wound care supplies sent with pt. Pt belongings, including [place] flag sent with EMS. EMS escorted off pt the floor via stretcher
== END 2025-03-25 04:30 | disposition hospice, inpatient (51) | DRG 853 ==
LOC: HO.ED 16:13 → HO.EDOVER 22:41 → HO.IMC 03-15 07:20 → HO.EDOVER 03-15 08:32 → HO.SSSA 03-15 12:11 → HO.IMC 03-15 16:02
PROVIDERS: Internal Medicine; Physician Assistant; Physician Assistant Surgical; Student in an Organized Health Care Education/Training Program; Admitting Provider Surgery; Emergency Provider Emergency Medicine Emergency Medical Services; PCP Internal Medicine; Visit Provider Hospitalist
PROC: 0D1M0Z4 Bypass Descending Colon to Cutaneous, Open Approach (ICD-10-PCS; CPT 49000; principal; 2025-03-15 11:40)
DX: A41.9 Sepsis, unspecified organism (principal); G93.41 Metabolic encephalopathy; I50.33 Acute on chronic diastolic (congestive) heart failure; N17.0 Acute kidney failure with tubular necrosis; K65.9 Peritonitis, unspecified; J69.0 Pneumonitis due to inhalation of food and vomit; K65.1 Peritoneal abscess; N39.0 Urinary tract infection, site not specified; F05 Delirium due to known physiological condition; K57.20 Diverticulitis of large intestine with perforation and abscess without bleeding; K56.7 Ileus, unspecified; D62 Acute posthemorrhagic anemia; F03.911 Unspecified dementia, unspecified severity, with agitation; J98.11 Atelectasis; E87.0 Hyperosmolality and hypernatremia; I47.10 Supraventricular tachycardia, unspecified; Z51.5 Encounter for palliative care; E87.6 Hypokalemia; Z66 Do not resuscitate; G89.18 Other acute postprocedural pain; B96.20 Unspecified Escherichia coli [E. coli] as the cause of diseases classified elsewhere; B95.4 Other streptococcus as the cause of diseases classified elsewhere; R65.20 Severe sepsis without septic shock; I48.91 Unspecified atrial fibrillation; E78.5 Hyperlipidemia, unspecified; Z20.822 Contact with and (suspected) exposure to COVID-19; Z79.899 Other long term (current) drug therapy
CPT/HCPCS: 36415; 71045; 74018; 74176; 74177; 80048; 80053; 81001; 83605; 83735; 83880; 84100; 84478; 84484; 85007; 85025; 85027; 85610; 85730; 86850; 86900; 86901; 86923; 87040; 87070; 87073; 87076; 87077; 87086; 87185; 87186; 87205; 87502; 87633; 87635; 87640; 87641; 88305; 88307; 92610; 93005; 97162; 99285; J0131; J0616; J0665; J0696; J1805; J1836; J1938; J2270; J2359; J2371; J2470; J2543; J2795; J3010; J3374; J3480; J7120; J7168; P9016; P9047; Q9957; Q9967

== ENCOUNTER → 2025-03-14 15:11 | Outpatient (BNV) | payer MEDICARE, SELFPAY | PROVIDERS: Emergency Provider Emergency Medicine Emergency Medical Services; Visit Provider Internal Medicine Cardiovascular Disease | DX: I48.91 Unspecified atrial fibrillation (principal); I45.10 Unspecified right bundle-branch block | CPT/HCPCS: 93010 ==

== ENCOUNTER → 2025-03-14 16:35 | Outpatient (BNV) | payer MEDICARE, SELFPAY | PROVIDERS: Emergency Provider Emergency Medicine Emergency Medical Services; Visit Provider Radiology Diagnostic Radiology | DX: J98.11 Atelectasis (principal) | CPT/HCPCS: 71045 ==

== ENCOUNTER 2025-03-14 22:28 | Outpatient (BNV) | payer MEDICARE, SELFPAY | END 2025-03-23 05:38 | PROVIDERS: Admitting Provider Surgery; Emergency Provider Emergency Medicine Emergency Medical Services; PCP Internal Medicine; Visit Provider Internal Medicine | DX: I49.3 Ventricular premature depolarization (principal); I45.10 Unspecified right bundle-branch block | CPT/HCPCS: 93010 ==

== ENCOUNTER 2025-03-14 22:28 | Outpatient (BNV) | payer MEDICARE, SELFPAY | END 2025-03-19 16:17 | PROVIDERS: Admitting Provider Surgery; Emergency Provider Emergency Medicine Emergency Medical Services; PCP Internal Medicine; Visit Provider Radiology Diagnostic Radiology | DX: J98.11 Atelectasis (principal); J98.4 Other disorders of lung | CPT/HCPCS: 71045 ==

== ENCOUNTER 2025-03-14 22:28 | Outpatient (BNV) | payer MEDICARE, SELFPAY | END 2025-03-21 16:39 | PROVIDERS: Admitting Provider Surgery; Emergency Provider Emergency Medicine Emergency Medical Services; PCP Internal Medicine; Visit Provider Specialist | DX: R91.8 Other nonspecific abnormal finding of lung field (principal) | CPT/HCPCS: 71045 ==

== ENCOUNTER 2025-03-14 22:28 | Outpatient (BNV) | payer MEDICARE, SELFPAY | END 2025-03-15 01:13 | PROVIDERS: Admitting Provider Surgery; Emergency Provider Emergency Medicine Emergency Medical Services; Visit Provider Internal Medicine Cardiovascular Disease | DX: I48.91 Unspecified atrial fibrillation (principal); I45.10 Unspecified right bundle-branch block | CPT/HCPCS: 93010 ==

== ENCOUNTER 2025-03-14 22:28 | Outpatient (BNV) | payer MEDICARE, SELFPAY | END 2025-03-22 09:10 | PROVIDERS: Admitting Provider Surgery; Emergency Provider Emergency Medicine Emergency Medical Services; PCP Internal Medicine; Visit Provider Radiology Diagnostic Radiology | DX: A41.9 Sepsis, unspecified organism (principal); K80.20 Calculus of gallbladder without cholecystitis without obstruction; K62.89 Other specified diseases of anus and rectum; R10.9 Unspecified abdominal pain; E87.21 Acute metabolic acidosis | CPT/HCPCS: 74018; 74176 ==

== ENCOUNTER → 2025-03-14 22:28 | Outpatient (BNV) | payer MEDICARE, SELFPAY | PROVIDERS: Admitting Provider Surgery; Emergency Provider Emergency Medicine Emergency Medical Services; Visit Provider Surgery | DX: K63.1 Perforation of intestine (nontraumatic) (principal) | CPT/HCPCS: 99024; 99499 ==

== ENCOUNTER → 2025-03-14 22:28 | Outpatient (BNV) | payer MEDICARE, SELFPAY | PROVIDERS: Admitting Provider Surgery; Emergency Provider Emergency Medicine Emergency Medical Services; PCP Internal Medicine; Visit Provider Internal Medicine | DX: K63.1 Perforation of intestine (nontraumatic) (principal) | CPT/HCPCS: 99222; 99232 ==

== ENCOUNTER → 2025-03-14 22:28 | Outpatient (BNV) | payer MEDICARE, SELFPAY | PROVIDERS: Admitting Provider Surgery; Emergency Provider Emergency Medicine Emergency Medical Services; Visit Provider Physician Assistant | DX: A41.9 Sepsis, unspecified organism (principal); R65.20 Severe sepsis without septic shock; K63.1 Perforation of intestine (nontraumatic); N17.9 Acute kidney failure, unspecified | CPT/HCPCS: 99222; 99232; 99233 ==